=== PATIENT | female | born 1945 | race Hispanic/Latino ===

== ENCOUNTER 2016-12-21 02:34 | Emergency (ER) | payer MEDICARE, MEDICAID ==
[2016-12-21 02:34] VITALS: BMI 30.6
[2016-12-21 02:44] VITALS: RESP 18; TEMP 98
--- NOTE | 2016-12-21 02:52 | ED PDOC ---
Arrival/HPI - General Chief Complaint: Chest Pain Time Seen by Provider: 12/21/16 02:39 Historian: Patient - History of Present Illness Narrative History of Present Illness (Text): 12/21/16 02:51 Pratima Malik is a 71 year old female, whose past medical history includes hypertension, diabetes, and arthritis, who presents to the Emergency department complaining of chest pain. Patient states she has been experiencing left-sided chest pain for the past 2 hours. Patient denies any fever, chills, shortness of breath, nausea, vomiting, diarrhea, urinary symptoms, back pain, neck pain, headache, dizziness, or any other complaints. Time/Duration: 1-3 hours (2 hours) Symptom Onset: Gradual Symptom Course: Unchanged Activities at Onset: Rest, Light Context: Home Past Medical History - Provider Review Nursing Documentation Reviewed: Yes - Infectious Disease Hx of Infectious Diseases: None - Tetanus Immunization Tetanus Immunization: >10 years Ago - Reproductive Menopause: Yes - Cardiac Hx Hypertension: Yes - Pulmonary Hx Respiratory Disorders: No - Neurological Hx Neurological Disorder: No - HEENT Hx HEENT Disorder: No - Renal Hx Renal Disorder: No - Endocrine/Metabolic Hx Diabetes Mellitus Type 2: Yes - Hematological/Oncological Hx Blood Disorders: No - Integumentary Hx Dermatological Disorder: No - Musculoskeletal/Rheumatological Hx Arthritis: Yes - Gastrointestinal Hx Gastrointestinal Disorders: No - Genitourinary/Gynecological Hx Genitourinary Disorders: No - Psychiatric Hx Psychophysiologic Disorder: No Hx Substance Use: No - Surgical History Hx Hysterectomy: Yes Hx Tonsillectomy: Yes Family/Social History - Physician Review Nursing Documentation Reviewed: Yes Family/Social History: No Known Family HX Smoking Status: Never Smoked Hx Alcohol Use: No Hx Substance Use: No Allergies/Home Meds Allergies/Adverse Reactions: Allergies No Known Allergies Allergy (Verified 12/21/16 02:43) Home Medications: Home Meds Medication Instructions Recorded Confirmed Amlodipine Besylate/Benazepril 1 tab PO DAILY 12/21/16 12/21/16 [Amlodipine-Benazepril 10-20 mg] Glimepiride 1 mg PO BID 12/21/16 12/21/16 Metformin HCl [Glucophage] 850 mg PO BID 12/21/16 12/21/16 Quetiapine Fumarate [Seroquel] 100 mg PO HS 12/21/16 12/21/16 Thioridazine HCl 100 mg PO HS 12/21/16 12/21/16 Vit D2 50,000 units PO QWK 12/21/16 12/21/16 Review of Systems - Physician Review All systems were reviewed & negative as marked: Yes - Review of Systems Constitutional: Normal. absent: Fevers Eyes: Normal ENT: Normal Respiratory: Normal. absent: SOB, Cough Cardiovascular: Chest Pain Gastrointestinal: Normal. absent: Abdominal Pain, Diarrhea, Nausea, Vomiting Genitourinary Female: Normal. absent: Dysuria, Frequency, Hematuria, Urine Output Changes Musculoskeletal: Normal. absent: Back Pain, Neck Pain Skin: Normal. absent: Rash Neurological: Normal. absent: Headache, Dizziness Endocrine: Normal Hemo/Lymphatic: Normal Psychiatric: Normal Physical Exam Vital Signs Reviewed: Yes Vital Signs Temp Pulse Resp BP Pulse Ox 12/21/16 05:00 90 18 125/70 97 12/21/16 02:43 98.0 F 85 18 136/87 Temperature: Afebrile Blood Pressure: Normal Pulse: Regular Respiratory Rate: Normal Appearance: Positive for: Well-Appearing, Non-Toxic, Comfortable Pain Distress: None Mental Status: Positive for: Alert and Oriented X 3 - Systems Exam Head: Present: Atraumatic, Normocephalic Pupils: Present: PERRL Extroacular Muscles: Present: EOMI Conjunctiva: Present: Normal Mouth: Present: Moist Mucous Membranes Neck: Present: Normal Range of Motion Respiratory/Chest: Present: Clear to Auscultation, Good Air Exchange. No: Respiratory Distress, Accessory Muscle Use Cardiovascular: Present: Regular Rate and Rhythm, Normal S1, S2. No: Murmurs Abdomen: Present: Normal Bowel Sounds. No: Tenderness, Distention, Peritoneal Signs Back: Present: Normal Inspection Upper Extremity: Present: Normal Inspection. No: Cyanosis, Edema Lower Extremity: Present: Normal Inspection. No: Edema Neurological: Present: GCS=15, CN II-XII Intact, Speech Normal Skin: Present: Warm, Dry, Normal Color. 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 Plan: -- EKG -- Chest X-ray -- Labs, cardiac enzymes -- UA -- Reassess and disposition Prior Visits: Notes and results from previous visits were reviewed. Progress Notes: Reviewed EKG, NSR at [address] bpm[address] Non-specific ST/T wave changes. 12/21/16 03:33 Reviewed radiology, Chest X-ray shows no active disease. 12/21/16 04:[address] Cristina, who is aware and agrees with plan. Accepts pt in to her service. Pt will go to Telemetry observation for chest pain. 12/21/16 04:55 Discussed results and hospital observation plan with pt. Pt states she does not wish to stay in the hospital and would prefer to f/u outpt with her PMD. Pt was advised on the risks of leaving against medical advice including but not limited to underlying heart disease, organ failure, or . Pt states she will sign out against medical advice. Explained to the patient that choosing to do so may result in permanent bodily harm or . I have discussed at great length that without further evaluation and monitoring there may be unforeseen circumstances and/or deterioration causing permanent bodily harm or as a result of their choice. The patient is alert, oriented, and shows the mental capacity to make clear decisions regarding the patients health care at this time. The patient continues to wish to leave against medical advice. The patient has been advised that they should return to the emergency room immediately if they change their mind at any time, or if their condition begins to change or worsen in any way. - Lab Interpretations Lab Results: 12/21/16 02:58 12/21/16 02:58 Lab Results 12/21/16 02:58: Sodium 142, Potassium 3.9, Chloride 107, Carbon Dioxide 24, Anion Gap 15, BUN 18, Creatinine 0.7, Est GFR ( Amer) > 60, Est GFR (Non- Af Amer) > 60, Random Glucose 82, Calcium 9.5, Magnesium 1.5 L, Total Bilirubin 0.6, AST 13 L, ALT 26, Alkaline Phosphatase 70, Lactate Dehydrogenase 312 L, Total Creatine Kinase 45, Troponin I < 0.01, Total Protein 7.3, Albumin 4.1, Globulin 3.2, Albumin/Globulin Ratio 1.3 12/21/16 02:58: WBC 5.6, RBC 4.18, Hgb 12.0, Hct 35.4 L, MCV 84.7, MCH 28.7, MCHC 33.9, RDW 13.7, Plt Count 292, MPV 9.1, Gran % 48.4 L, Lymph % (Auto) 41.8 H, [place] % (Auto) 7.1 H, Eos % (Auto) 2.5, Baso % (Auto) 0.2, Gran # 2.71, Lymph # 2.3, [place] # 0.4, Eos # 0.1, Baso # 0.01 - RAD Interpretation Radiology Orders: 12/21/16 02:51 CHEST PORTABLE [RAD] Stat - Medication Orders Current Medication Orders: Discontinued Medications Acetaminophen (Tylenol 325mg Tab) 650 mg PO Q4H PRN PRN Reason: Pain, Mild (1-3) Aspirin (Ecotrin) 325 mg PO STAT STA Stop: 12/21/16 03:02 Last Admin: 12/21/16 03:15 Dose: 325 mg Insulin Human Regular (Humulin R Low) 0 units SC ACHS KAYLIN PRN Reason: Protocol Magnesium Oxide (Mag-Ox) 400 mg PO STAT STA Stop: 12/21/16 03:54 Last Admin: 12/21/16 04:41 Dose: 400 mg Nitroglycerin (Nitro-Bid 2% Oint) 1 ea TOP ONCE STA Stop: 12/21/16 03:02 Last Admin: 12/21/16 03:15 Dose: 1 ea - Scribe Statement The provider has reviewed the documentation as recorded by the Regina Quiroz Provider Attestation: All medical record entries made by the Scribe were at my direction and personally dictated by me. I have reviewed the chart and agree that the record accurately reflects my personal performance of the history, physical exam, medical decision making, and the department course for this patient. I have also personally directed, reviewed, and agree with the discharge instructions and disposition. Disposition/Present on Arrival - Present on Arrival Any Indicators Present on Arrival: No History of DVT/PE: No History of Uncontrolled Diabetes: No Urinary Catheter: No History of Decub. Ulcer: No History Surgical Site Infection Following: None - Disposition Have Diagnosis and Disposition been Completed?: Yes Diagnosis: Chest pain Disposition: AGAINST MEDICAL ADVICE Disposition Time: 05:05 Condition: UNKNOWN Discharge Instructions (ExitCare): Chest Pain (ED)
[2016-12-21] MEDS ORDERED: Aspirin 325 mg EC Tablets PO STA (03:01)
[2016-12-21] MEDS ORDERED: Nitroglycerin 2% Ointment Foilpak UD TOP STA (03:01)
[2016-12-21 03:05] LABS: ADD MANUAL DIFF? NO
[2016-12-21 03:11] LABS: BASO # 0.01 K/mm3 (0.0-2.0); BASO % 0.2 % (0.0-3.0); EOS # 0.1 (0.0-0.7); EOS % 2.5 % (1.5-5.0); GRAN # 2.71 (1.4-6.5); GRAN % 48.4 % (50.0-68.0); HEMATOCRIT 35.4 % (36.0-48.0); LYMPH # 2.3 (1.2-3.4); LYMPH % 41.8 % (22.0-35.0); MEAN CELL VOLUME 84.7 fL (80.0-105.0); MEAN CORPUSCULAR HEMOGLOBIN 28.7 pg (25.0-35.0); MEAN CORPUSCULAR HGB CONC 33.9 g/dl (31.0-37.0); MEAN PLATELET VOLUME 9.1 fl (7.0-11.0); MONO # 0.4 (0.1-0.6); MONO % 7.1 % (1.0-6.0); PLATELET COUNT 292 10^3/uL (120.0-450.0); RED CELL DISTRIBUTION WIDTH 13.7 % (11.5-14.5); WHITE BLOOD COUNT 5.6 10^3/ul (4.5-11.0)
[2016-12-21 03:18] LABS: ALB/GLOB RATIO 1.3 (1.1-1.8); ALKALINE PHOSPHATASE 70 U/L (38-133); ALT/SGPT 26 U/L (7-56); AST/SGOT 13 U/L (15-39); BILIRUBIN,TOTAL 0.6 mg/dL (0.2-1.3); BLOOD UREA NITROGEN 18 mg/dL (7-21); CALCIUM 9.5 mg/dL (8.4-10.5); CARBON DIOXIDE 24 mmol/L (21-33); CHLORIDE 107 mmol/L (98-107); GFR AFRICAN-AMERICAN > 60; GLUCOSE,RANDOM 82 mg/dL (70-110); MAGNESIUM 1.5 mg/dL (1.7-2.2); POTASSIUM 3.9 mmol/L (3.6-5.0); SODIUM 142 mmol/L (132-148); TOTAL PROTEIN 7.3 g/dL (5.8-8.3)
[2016-12-21 03:31] LABS: TROPONIN I < 0.01 ng/mL
[2016-12-21] MEDS ORDERED: Magnesium Oxide 400 mg Tab UD PO STA (03:53)
[2016-12-21 05:12] VITALS: BP 125/70; PULSE 90; O2SAT 97
[2016-12-21] MEDS ORDERED: Insulin Reg-LOW-Coverage SC SCH (07:30)
--- NOTE | 2016-12-21 08:44 | RAD ---
HISTORY: cp COMPARISON: No prior. FINDINGS: LUNGS: No active pulmonary disease. PLEURA: No significant pleural effusion identified, no pneumothorax apparent. CARDIOVASCULAR: Mild cardiomegaly OSSEOUS STRUCTURES: No significant abnormalities. VISUALIZED UPPER ABDOMEN: Normal. OTHER FINDINGS: None. IMPRESSION: No active disease.
--- NOTE | 2016-12-21 10:20 | CARD ---
APPROVED REPORT EKG Measurement Heart [id number] <Conclusion> Normal sinus rhythm Q3, Small Q in AVF. Poor R Progression V1-V4.
== END 2016-12-21 05:00 | disposition left against medical advice (07) ==
LOC: ED 02:34 → ERH 04:12 → UNDOADMOB 04:12
DX: R07.9 Chest pain, unspecified (principal); E11.9 Type 2 diabetes mellitus without complications; M19.90 Unspecified osteoarthritis, unspecified site; I10 Essential (primary) hypertension

== ENCOUNTER 2017-02-01 12:07 | Inpatient (IN) | payer MEDICARE, MEDICAID ==
[2017-02-01 12:48] VITALS: O2SAT 95; BMI 30.9
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
--- NOTE | 2017-02-01 14:11 | RAD ---
HISTORY: PES evaluation COMPARISON: 12/21/2016 FINDINGS: LUNGS: No active pulmonary disease. PLEURA: No significant pleural effusion identified, no pneumothorax apparent. CARDIOVASCULAR: Normal. OSSEOUS STRUCTURES: No significant abnormalities. VISUALIZED UPPER ABDOMEN: Normal. OTHER FINDINGS: None. IMPRESSION: No active disease.
[2017-02-01 14:51] LABS: ADD MANUAL DIFF? NO
[2017-02-01 15:04] LABS: BASO # 0.02 K/mm3 (0.0-2.0); BASO % 0.3 % (0.0-3.0); EOS # 0.1 (0.0-0.7); GRAN # 5.25 (1.4-6.5); GRAN % 73.1 % (50.0-68.0); HEMATOCRIT 38.8 % (36.0-48.0); LYMPH # 1.4 (1.2-3.4); LYMPH % 19.9 % (22.0-35.0); MEAN CORPUSCULAR HEMOGLOBIN 28.6 pg (25.0-35.0); MEAN CORPUSCULAR HGB CONC 32.5 g/dl (31.0-37.0); MEAN PLATELET VOLUME 9.7 fl (7.0-11.0); MONO # 0.4 (0.1-0.6); MONO % 5.7 % (1.0-6.0); PLATELET COUNT 331 10^3/uL (120.0-450.0); RED CELL DISTRIBUTION WIDTH 14.2 % (11.5-14.5); WHITE BLOOD COUNT 7.2 10^3/ul (4.5-11.0)
[2017-02-01 15:16] LABS: ALB/GLOB RATIO 1.5 (1.1-1.8); ALKALINE PHOSPHATASE 66 U/L (38-133); ALT/SGPT 23 U/L (7-56); AST/SGOT 18 U/L (15-39); BILIRUBIN,TOTAL 0.4 mg/dL (0.2-1.3); BLOOD UREA NITROGEN 17 mg/dL (7-21); CALCIUM 9.6 mg/dL (8.4-10.5); CARBON DIOXIDE 24 mmol/L (21-33); CHLORIDE 106 mmol/L (98-107); GFR AFRICAN-AMERICAN > 60; GLUCOSE,RANDOM 160 mg/dL (70-110); SODIUM 143 mmol/L (132-148); TOTAL PROTEIN 6.8 g/dL (5.8-8.3)
[2017-02-01 16:36] LABS: PH,URINE 5.5 (4.7-8.0); URINE BILIRUBIN NEGATIVE (NEGATIVE); URINE BLOOD SMALL (NEGATIVE); URINE GLUCOSE (UA) NEGATIVE (NEGATIVE); URINE KETONE TRACE mg/dL (NEGATIVE); URINE LEUKOCYTE ESTERASE SMALL Leu/uL (NEGATIVE); URINE PROTEIN NEGATIVE mg/dL (<30 mg/dL); URINE UROBILINOGEN 0.2 E.U./dL (<1 E.U./dL)
[2017-02-01 16:37] LABS: URINE APPEARANCE SL CLOUDY (CLEAR); URINE COLOR YELLOW (YELLOW)
[2017-02-01 16:54] LABS: URINE BACTERIA FEW (NEG); URINE EPITHELIAL CELLS MANY /hpf (0-5)
--- NOTE | 2017-02-02 10:21 | CARD ---
APPROVED REPORT EKG Measurement Heart [id number] <Conclusion> Normal sinus rhythm Low voltage QRS Possible Inferior infarct, old NSSTW changes Mildly prolonged QTc
--- NOTE | 2017-02-02 14:12 | PCM.PSYCH ---
Initial Psychiatric Evaluation - Initial Psychiatric Evaluation Type of Admission: Voluntary Legal Status: Capacity (patient has capacity to sign consent for treatment) Chief Complaint (in patient's own words): "If I will sign treatment plan, I will sign my life away, you will keep me here forever" "one of the nurses laughed at my face said that I will here, but I want to have long life" (pt is paranoid, nobody was laughing at pt's face). Patient's Reaction to Hospitalization: pt was admitted for worsening of psychosis, depressive symptoms, possible suicidal ideation, pt was feeling like she is a burden for her family. History of Present Illness and Precipitating Events: shortly pt has long h/o schizoaffective disorder, bipolar type, h/o multiple psych admissions, under HILLARY Esquivel at [facility], pt was noncompliant with meds for the past three weeks, decompensated, became paranoid, was not sleeping, had depressive symptoms, not able to function, was keep calling multiple times during the night time to her kids, pt had feeling that she is a burden for her family, wanted to . pt needs further evaluation and stabilization, meds resumption and titration. Meds confirmed by pharmacy [phone] thorazone 100mg po hs seorquel po hs metformin 850 po bid Amlodipine/benazepril 10-20 daily pt was seen at the tx team meeting, presented to be disorganized, paranoid, pressured/monotonic speech, pt said that "my family wants to lock me here, nobody wants me", pt initially refused to sign treatment plan "If I will sign treatment plan, I will sign my life away, you will keep me here forever"/ "one of the nurses laughed at my face said that I will here, but I want to have long life" (pt is paranoid, nobody was laughing at pt's face). pt was intrusive , was keep coming back to the tx team room, with the same statements "promise you will not keep me here forever". pt was provided with emotional support and empathic listening. pt was also crying, said that she feels like a "burden for my family, they do not want to be bothered", pt had passive wish to be as per PES "I wish I was , my famiy would be better off without me". pt denied feeling anxious denied hallucinations, but obviously thought process disorganized, pt is paranoid. pt denied using drugs and alcohol, denied smoking. past psych h/o: collaterals were obtained by medical residents: long h/o mental illness as per daughter Dasha [phone] h/o multiple psych admissions, most recent was 30 years ago, depression/psychosis, no suicidal attempts. medical h/o: HTN, dyslipidemia, arthritis, saw pt 02/01/17 14:35 02/01/17 14:35 Lab Results 02/02/17 11:54: POC Glucose (mg/dL) 270 H 02/01/17 16:10: Urine Opiates Screen Negative, Urine Methadone Screen Negative, Ur Barbiturates Screen Negative, Ur Phencyclidine Scrn Negative, Ur Amphetamines Screen Negative, U Benzodiazepines Scrn Negative, U Oth Cocaine Metabols Negative, U Cannabinoids Screen Negative 02/01/17 16:10: Urine Color Yellow, Urine Appearance Sl cloudy, Urine pH 5.5, Ur Specific [place] >= 1.030, Urine Protein Negative, Urine Glucose (UA) Negative, Urine Ketones Trace H, Urine Blood Small H, Urine Nitrate Negative, Urine Bilirubin Negative, Urine Urobilinogen 0.2, Ur Leukocyte Esterase Small H , Urine RBC 2 - 5, Urine WBC 2 - 5, Ur Epithelial Cells Many, Urine Bacteria Few 02/01/17 14:35: Alcohol, Quantitative < 10 02/01/17 14:35: Salicylates < 1 L, Acetaminophen < 10.0 L 02/01/17 14:35: Sodium 143, Potassium 4.0, Chloride 106, Carbon Dioxide 24, Anion Gap 17, BUN 17, Creatinine 0.9, Est GFR ( Amer) > 60, Est GFR (Non- Af Amer) > 60, Random Glucose 160 H, Calcium 9.6, Total Bilirubin 0.4, AST 18, ALT 23, Alkaline Phosphatase 66, Total Protein 6.8, Albumin 4.1, Globulin 2.7, Albumin/Globulin Ratio 1.5 02/01/17 14:35: WBC 7.2 D, RBC 4.41, Hgb 12.6, Hct 38.8, MCV 88.0, MCH 28.6, MCHC 32.5, RDW 14.2, Plt Count 331, MPV 9.7, Gran % 73.1 H, Lymph % (Auto) 19.9 L, Power % (Auto) 5.7, Eos % (Auto) 1.0 L, Baso % (Auto) 0.3, Gran # 5.25, Lymph # 1.4, Power # 0.4, Eos # 0.1, Baso # 0.02 Vital Signs Temp Pulse Resp BP Pulse Ox 02/02/17 07:38 97.5 F L 78 20 139/66 02/01/17 17:00 98 H 18 128/70 95 02/01/17 14:10 76 18 119/76 99 02/01/17 12:42 97.6 F 85 18 113/70 95 Current Medications: Active Medications Generic Name Dose Route Start Last Admin Trade Name Freq PRN Reason Stop Dose Admin Quetiapine Fumarate 100 mg 02/01/17 22:15 02/01/17 22:20 Seroquel PO 100 mg HS [facility] Administration Protocol Past Psychiatric History - Past Psychiatric History Previous Treatment History: Inpatient Prior Professional Help: see HPI Prior Psychiatric Treatment: see HPI At what hospital: see HPI Duration: see HPI Nature of Treatment: see HPI Explanation of prior treatment: see HPI History of Abuse: see HPI History of ETOH/Drug Use: see HPI History of Family Illness: see HPI son has schizophrenia Pertinent Medical Hx (Current Medical&Sleep Prob, Allergies): Allergies Allergy/AdvReac Type Severity Reaction Status Date / Time No Known Allergies Allergy Verified 02/02/17 04:47 Amlodipine Besylate/Benazepril [Amlodipine-Benazepril 10-20 mg] 1 tab PO DAILY 12/21/16 Glimepiride 1 mg PO BID 12/21/16 Metformin HCl [Glucophage] 850 mg PO BID 12/21/16 Quetiapine Fumarate [Seroquel] 100 mg PO HS 12/21/16 Thioridazine HCl 100 mg PO HS 12/21/16 Vit D2 50,000 units PO QWK 12/21/16 Review of Systems - Review of Systems Systems not reviewed;Unavailable: Acuity of Condition - EENT Eyes: As Per HPI Ears: As Per HPI Nose/Mouth/Throat: As Per HPI - Breasts Breasts: As Per HPI - Cardiovascular Cardiovascular: As Per HPI - Respiratory Respiratory: As Per HPI - Gastrointestinal Gastrointestinal: As Per HPI - Genitourinary Genitourinary: As Per HPI - Reproductive: Female Reproductive:Female: As Per HPI - Menstruation Menstruation: As Per HPI - Musculoskeletal Musculoskeletal: As Par HPI - Integumentary Integumentary: As Per HPI - Neurological Neurological: As Per HPI - Psychiatric Psychiatric: As Per HPI - Endocrine Endocrine: As Per HPI Mental Status Examination - Personal Presentation Personal Presentation: Looks stated age - Affect Affect: Constricted (and tearful) - Motor Activity Motor Activity: Calm - Reliability in Providing Information Reliability in Providing Information: Poor, due to alteration in thoughts - Speech Speech: Disorganized, Tangential - Mood Mood: Depressed, Anxious - Formal Thought Process Formal Thought Process: Delusions, Paranoia, Loosening of associations - Hallucinations/Delusions Delusions: Persecution - Obsessions/Compulsions Obsessions: None Compulsions: None - Cognitive Functions Orientation: Person, Place, Situation, Time Sensorium: Alert Attention/Concentration: Easily distracted Abstract Thinking: [place] Estimate of Intelligence: Average Judgement: Intact, as evidence by: Insight regarding need for hospitalization - Risk Risk: Suicidal, Self-mutilation, Diminished functioning - Strength & Assets Inventory Strength & Assets Inventory: Family support, Spiritual affiliations, Life experience, Cooperative - Limitations Limitations: Other (chronic mental illness, noncompliance withmeds) DSM 5 DX - DSM 5 DSM 5 Diagnosis: schizoaffective disorder, bipolar type, currently depressed - Recommended/Plan of Treatment Treatment Recommendations and Plan of Treatment: milieu/structure/supportive therapy Amlodipine Besylate/Benazepril [Amlodipine-Benazepril 10-20 mg] 1 tab PO DAILY will be resumed by medical team Glimepiride 1 mg PO BID will be resumed by medical team Metformin HCl [Glucophage] 850 mg PO BID will be resumed by medical team Quetiapine Fumarate [Seroquel] will be increased to 150mg po hs for psychosis and mood stabilization Thioridazine will be d/c Vit D2 50,000 units PO QWK will be resumed by medical team SW evaluation PRN meds will monitor closely collaterals from daughter appreciated. Projected ELOS: 7days Prognosis: fair Discharge Plan and Discharge Criteria: Pt will be not depressed or manic, will be more hopeful, will be not psychotic or anxious, will be not having thoughts of harming self or others, will be tolerating medications well, will not have major side effects, will be able to function, will not pose threat to self or others. - Smoking Cessation Smoking Cessation Initiated: No Reason for not providing: pt does not smoke
[2017-02-02] MEDS ORDERED: GLIMEPIRIDE 1 MG PO SCH (18:45)
--- NOTE | 2017-02-02 21:08 | CON ---
DATE: 02/02/2017 HISTORY OF PRESENT ILLNESS: The patient is 71 years old, known to me from office practice, was broug ht in by daughter, who lives upstairs. States that she has not been feeling well. She has been depr essed. She does not move around much. She is not taking her medication regularly. She states that she does not want to , according to daughter, and she has been feeling down for almost a month, but got more depressed in the last 2 weeks. PAST MEDICAL HISTORY: 1. Bipolar disorder. 2. Non-insulin dependent diabetes. 3. Hypertension. 4. Hyperlipidemia. ALLERGIES: She is not allergic to any medications. MEDICATIONS AT HOME: She is on 100 mg at bedtime, Seroquel 100 mg at bedtime, metformin 850 tw ice a day, glimepiride 1 mg twice a day, amlodipine 10 mg daily, benazepril 20 mg daily. SOCIAL HISTORY: She is single, lives in a two-family house. Her daughter lives upstairs and she timothy es downstairs. REVIEW OF SYSTEMS: Significant for feeling depressed and down. PHYSICAL EXAMINATION: GENERAL: She is awake and alert, communicative. VITAL SIGNS: She is afebrile, pulse 70, respirations 20, blood pressure 139/66. LUNGS: Bilateral fair airflow, no rhonchi or crackle. HEART: S1, S2 audible. ABDOMEN: Soft, nontender, no rebound, no guarding. NEUROLOGIC: She is awake and alert, able to communicate. LABORATORY DATA: WBC 7.2, hemoglobin 12.6, hematocrit 38, platelet 331. Chemistry: Sodium 143, pot assium 4.0, chloride 106, CO2 24, BUN 17, creatinine 0.9, blood sugar 168. Urine tox is negative. X -ray chest is negative. EKG shows normal sinus rhythm, old inferior infarct. ASSESSMENT: 1. Major depression. 2. Non-insulin dependent diabetes. 3. Hypertension. 4. Hyperlipidemia. 5. Chronic degenerative disk disease. 6. History of bipolar disorder. PLAN: We will monitor her blood sugar. We will restart her diabetes and her blood pressure medicati on. Psych medication will be adjusted by Dr. Jimenez and will reevaluate the patient in a.m. Harry Cristina MD cc: [phone] TT: 02/02/2017 21:07:11 Confirmation # [id number] Dictation # [id number] ln
--- NOTE | 2017-02-03 10:53 | CP.PCM.PN ---
<Reagan Damon - Last Filed: 02/03/17 11:20> Subjective - Date & Time of Evaluation Date of Evaluation: 02/03/17 Time of Evaluation: 07:35 - Subjective Subjective: Code Star progress note for Dr. Escalante - Reagan Damon PGY 1 Code star called by psychiatry unit at 7:30am for 517-02. Responded to code star and found Ms. Malik sitting in a chair comfortably in the activity room. She was awake, alert and oriented in no visible distress. Per staff, they had found her laying on the floor. The patient reported carrying a cup of water when she slipped and fell on her knees onto the floor. She denied loss of consciousness, hitting her head, chest pain, palpitations, SOB, abdominal pain, nausea, vomiting. She had a visible minor abrasion to her left knee that appeared old and healing. Range of motion of her left knee was within normal limits. Gait was normal. No visible head injury on examination. Vitals were as follows: Heart rate 101, blood pressure 169/99, fingerstick 112, respiratory rate 18. The patient answered questions appropriately. Discussed with staff to maintain close monitoring of patient post fall. Vitals at 7:42am reviewed and were as follows: temperature 97.9F, heart rate 81bpm, blood pressure 142/76, respiratory rate 20. Objective - Vital Signs/Intake and Output Vital Signs (last 24 hours): Temp Pulse Resp BP Pulse Ox 97.9 F 81 20 142/76 95 02/03/17 07:41 02/03/17 07:41 02/03/17 07:41 02/03/17 07:41 02/01/17 17:00 - Medications Medications: Current Medications Citalopram Hydrobromide (Celexa) 10 mg PO DAILY REPLACED BY [facility] Last Admin: 02/03/17 08:57 Dose: 10 mg Glimepiride (Amaryl) 1 mg PO BID REPLACED BY [facility] Last Admin: 02/03/17 08:57 Dose: 1 mg Lorazepam (Ativan) 0.5 mg PO TID PRN; Protocol PRN Reason: agitation/anxiety Last Admin: 02/02/17 21:26 Dose: 0.5 mg Losartan Potassium (Cozaar) 100 mg PO DAILY REPLACED BY [facility] Last Admin: 02/03/17 08:58 Dose: 100 mg Metformin HCl (Glucophage) 850 mg PO BID [facility]AYLIN Last Admin: 02/03/17 08:58 Dose: 850 mg Quetiapine Fumarate (Seroquel) 150 mg PO HS KAYLIN PRN Reason: Protocol Last Admin: 02/02/17 21:26 Dose: 150 mg Zaleplon (Sonata) 5 mg PO HS PRN PRN Reason: Insomnia Last Admin: 02/02/17 21:26 Dose: 5 mg Ziprasidone (Geodon Inj) 10 mg IM Q8H PRN; Protocol PRN Reason: severe agitation - Constitutional Appears: Well, Non-toxic, No Acute Distress - Head Exam Head Exam: ATRAUMATIC, NORMAL INSPECTION, NORMOCEPHALIC - Eye Exam Eye Exam: EOMI, PERRL - ENT Exam ENT Exam: Mucous Membranes Moist - Neck Exam Neck Exam: Normal Inspection - Respiratory Exam Respiratory Exam: Clear to Ausculation Bilateral. absent: Rales, Rhonchi, Wheezes - Cardiovascular Exam Cardiovascular Exam: RRR, +S1, +S2. absent: Gallop, Rubs - GI/Abdominal Exam GI & Abdominal Exam: Soft. absent: Distended, Firm, Guarding, Rigid, Tenderness , Rebound - Neurological Exam Neurological Exam: Alert, Awake, CN II-XII Intact, Normal Gait, Oriented x3 Neuro motor strength exam: Left Upper Extremity: 5, Right Upper Extremity: 5, Left Lower Extremity: 5, Right Lower Extremity: 5 - Skin Skin Exam: Dry, Intact, Normal Color, Warm Assessment and Plan - Assessment and Plan (Free Text) Plan: 71yo female admitted to psychiatry unit s/p mechanical fall for which code star was called -Alert and oriented in no acute distress -Minor abrasion visible to left knee -No focal motor deficits apparent; gait within normal limits -Continue close observation of patient post fall -Vitals q4h -PMD notified of fall Case discussed with attending physician, Dr. Escalante <Amirah Escalante - Last Filed: 02/03/17 13:18> Objective - Vital Signs/Intake and Output Vital Signs (last 24 hours): Temp Pulse Resp BP Pulse Ox 97.9 F 81 20 142/76 95 02/03/17 07:41 02/03/17 07:41 02/03/17 07:41 02/03/17 07:41 02/01/17 17:00 - Medications Medications: Current Medications Citalopram Hydrobromide (Celexa) 10 mg PO DAILY REPLACED BY [facility] Last Admin: 02/03/17 08:57 Dose: 10 mg Glimepiride (Amaryl) 1 mg PO BID REPLACED BY [facility] Last Admin: 02/03/17 08:57 Dose: 1 mg Lorazepam (Ativan) 0.5 mg PO TID PRN; Protocol PRN Reason: agitation/anxiety Last Admin: 02/02/17 21:26 Dose: 0.5 mg Losartan Potassium (Cozaar) 100 mg PO DAILY REPLACED BY [facility] Last Admin: 02/03/17 08:58 Dose: 100 mg Metformin HCl (Glucophage) 850 mg PO BID REPLACED BY [facility] Last Admin: 02/03/17 08:58 Dose: 850 mg Quetiapine Fumarate (Seroquel) 150 mg PO HS [facility]AYLIN PRN Reason: Protocol Last Admin: 02/02/17 21:26 Dose: 150 mg Zaleplon (Sonata) 5 mg PO HS PRN PRN Reason: Insomnia Last Admin: 02/02/17 21:26 Dose: 5 mg Ziprasidone (Geodon Inj) 10 mg IM Q8H PRN; Protocol PRN Reason: severe agitation Attending/Attestation - Attestation I have personally seen and examined this patient.: Yes I have fully participated in the care of the patient.: Yes I have reviewed all pertinent clinical information, including history, physical exam and plan: Yes Notes (Text): 02/03/17 13:15 Pt has no clinical evidence of any injury due to the fall today.
--- NOTE | 2017-02-03 12:28 | PN ---
DATE: 02/03/2017 SUBJECTIVE: The patient is a 71-year-old, seen and examined. She states she was given a lot of medi cation last night. When she woke up this morning, she felt dizzy. She lost balance, she fell, but d id not hit her head. She states she feels fine; however, she does feel better. PHYSICAL EXAMINATION: VITAL SIGNS: She is afebrile, pulse 80, respirations 20, blood pressure 142/76. LUNGS: Bilateral fair airflow, no rhonchi or crackle. HEART: S1, S2 audible. ABDOMEN: Soft, nontender, no rebound, no guarding. NEUROLOGIC: She is awake and alert, communicative, ambulatory. ASSESSMENT: 1. Schizoaffective disorder. 2. Depression. 3. Hypertension. 4. Non-insulin dependent diabetes. 5. Chronic degenerative disk disease. 6. Hyperlipidemia. PLAN: We will continue to monitor patient's blood sugar and blood pressure. She has been started on Celexa. She is on Cozaar. Will continue her on metformin and monitor her blood sugar. Will follow up with you. Thanks for the consult. Discharge plan soon. Harry Cristina MD cc: [phone] TT: 02/03/2017 12:27:14 Confirmation # [id number] Dictation # [id number] william
--- NOTE | 2017-02-03 13:46 | PCM.PYCHPN ---
Psychiatric Progress Note - Psychiatric Progress Note Patient seen today, length of contact: 30 minutes Patient Chief Complaint: "I feel better, my family visited me here, they told me after I'll get better then we'll take me back" Problems Identified/Issues Discussed: Suicide/ homicide prevention, past psychiatric h/o, current psychiatric symptoms , medical problems, risk/benefits and alternatives of medications, medications compliance, coping strategies, substance abuse h/o, relapse prevention, importance of follow up with psychiatrist and therapist, discharge plan. Medical Problems: hypertension, dyslipidemia, arthritis Diagnostic Results: 02/01/17 14:35 02/01/17 14:35 Lab Results 02/03/17 12:04: POC Glucose (mg/dL) 120 H 02/03/17 07:53: POC Glucose (mg/dL) 112 H 02/02/17 21:05: POC Glucose (mg/dL) 244 H 02/02/17 15:56: POC Glucose (mg/dL) 168 H 02/02/17 11:54: POC Glucose (mg/dL) 270 H 02/01/17 16:10: Urine Opiates Screen Negative, Urine Methadone Screen Negative, Ur Barbiturates Screen Negative, Ur Phencyclidine Scrn Negative, Ur Amphetamines Screen Negative, U Benzodiazepines Scrn Negative, U Oth Cocaine Metabols Negative, U Cannabinoids Screen Negative 02/01/17 16:10: Urine Color Yellow, Urine Appearance Sl cloudy, Urine pH 5.5, Ur Specific [place] >= 1.030, Urine Protein Negative, Urine Glucose (UA) Negative, Urine Ketones Trace H, Urine Blood Small H, Urine Nitrate Negative, Urine Bilirubin Negative, Urine Urobilinogen 0.2, Ur Leukocyte Esterase Small H , Urine RBC 2 - 5, Urine WBC 2 - 5, Ur Epithelial Cells Many, Urine Bacteria Few 02/01/17 14:35: Alcohol, Quantitative < 10 02/01/17 14:35: Salicylates < 1 L, Acetaminophen < 10.0 L 02/01/17 14:35: Sodium 143, Potassium 4.0, Chloride 106, Carbon Dioxide 24, Anion Gap 17, BUN 17, Creatinine 0.9, Est GFR ( Amer) > 60, Est GFR (Non- Af Amer) > 60, Random Glucose 160 H, Calcium 9.6, Total Bilirubin 0.4, AST 18, ALT 23, Alkaline Phosphatase 66, Total Protein 6.8, Albumin 4.1, Globulin 2.7, Albumin/Globulin Ratio 1.5 02/01/17 14:35: WBC 7.2 D, RBC 4.41, Hgb 12.6, Hct 38.8, MCV 88.0, MCH 28.6, MCHC 32.5, RDW 14.2, Plt Count 331, MPV 9.7, Gran % 73.1 H, Lymph % (Auto) 19.9 L, [place] % (Auto) 5.7, Eos % (Auto) 1.0 L, Baso % (Auto) 0.3, Gran # 5.25, Lymph # 1.4, [place] # 0.4, Eos # 0.1, Baso # 0.02 Vital Signs Temp Pulse Resp BP Pulse Ox 02/03/17 07:41 97.9 F 81 20 142/76 02/02/17 16:24 72 161/82 H 02/02/17 07:38 97.5 F L 78 20 139/66 02/01/17 17:00 98 H 18 128/70 95 02/01/17 14:10 76 18 119/76 99 02/01/17 12:42 97.6 F 85 18 113/70 95 DSM 5 Symptoms Update: shortly pt has long h/o schizoaffective disorder, bipolar type, h/o multiple psych admissions, under HILLARY Esquivel at [facility], pt was noncompliant with meds for the past three weeks, decompensated, became paranoid, was not sleeping, had depressive symptoms, not able to function, was keep calling multiple times during the night time to her kids, pt had feeling that she is a burden for her family, wanted to . patient was seen today for follow-up, as per nursing report patient was found to be in kneeling position on the floor early at the morning time, patient seems to slip and fall because she spilled some water on the floor. Dr. Nugent a house physician saw this patient, this service writer discussed this with primary care physician today. as per patient she woke up and did not adjusted to the seating position and went to the bathroom very quickly, patient said "I know after waking up at the morning I need to sit for couple of minutes and then move but I didn't do so" patient was educated about the risk of falls, patient was educated deceitful couple of minutes after waking up and if she needs to have assistance Qual nursing staff patient verbalized understanding. meds adjusted, now pt is on fall precaution, nonslippery socks provided. patient has some positive changes with her presentation, took a shower, less intrusive, more pleasant, emotionally more stable, patient still has paranoid ideations, depression, needs further evaluation and stabilization. patient said that her family is willing to take her back after medical and psychiatric stabilization, pt less paranoid towards them. as per nursing report patient is more pleasant, has fair appetite, adjusting to the unit as well, no agitation, no aggression. Patient tolerates medications well, no side effects observed or reported. Impression: schizoaffective disorder disorder, bipolar type, most recent episode depression Medication Change: No (resumed yesterday) Medical Record Reviewed: Yes Consults ordered or reviewed: Dr. Wilder consult appreciated Patient status post fall was seen by house physician Mental Status Examination - Cognitive Function Orientation: Person, Place, Situation, Time Memory: Intact Attention: Poor Concentration: Poor Association: Loose Fund of Knowledge: Poor - Mood Mood: Depressed, Anxious - Affect Affect: Constricted (and tearful) - Formal Thought Process Formal Thought Process: Delusions (some improvement), Paranoia (some improvement ), Loosening of associations - Suicidal Ideation Suicidal Ideation: No - Homicidal Ideation Homicidal Ideation: No Goal/Treatment Plan - Goal/Treatment Plan Need for Continued Stay: Remain at risks for inpatient hospitalization, Severe depression anxiety, Discharge may exacerbated symptoms, Severe functional impairment Progress Toward Problem(s) and Goals/Treatment Plan: milieu/structure/supportive therapy Amlodipine Besylate/Benazepril [Amlodipine-Benazepril 10-20 mg] 1 tab PO DAILY will be resumed by medical team Glimepiride 1 mg PO BID will be resumed by medical team Metformin HCl [Glucophage] 850 mg PO BID will be resumed by medical team Quetiapine Fumarate [Seroquel] 150mg po hs for psychosis and mood stabilization Thioridazine was discontinued Celexa 10 mg daily for depression and anxiety Vit D2 50,000 units PO QWK will be resumed by medical team SW evaluation PRN meds will monitor closely collaterals from daughter appreciated. Estimated Date of D/C: 02/09/17 (we'll monitor closely) - Smoking Cessation Smoking Cessation Initiated: No Reason for not providing: patient doesn't smoke
--- NOTE | 2017-02-04 12:48 | PCM.PYCHPN ---
Psychiatric Progress Note - Psychiatric Progress Note Patient seen today, length of contact: 30 minutes Patient Chief Complaint: "promise that he will not keep me here forever" Problems Identified/Issues Discussed: Suicide/ homicide prevention, past psychiatric h/o, current psychiatric symptoms , medical problems, risk/benefits and alternatives of medications, medications compliance, coping strategies, substance abuse h/o, relapse prevention, importance of follow up with psychiatrist and therapist, discharge plan. Medical Problems: hypertension, dyslipidemia, arthritis Diagnostic Results: 02/01/17 14:35 02/01/17 14:35 Lab Results 02/03/17 12:04: POC Glucose (mg/dL) 120 H 02/03/17 07:53: POC Glucose (mg/dL) 112 H 02/02/17 21:05: POC Glucose (mg/dL) 244 H 02/02/17 15:56: POC Glucose (mg/dL) 168 H 02/02/17 11:54: POC Glucose (mg/dL) 270 H 02/01/17 16:10: Urine Opiates Screen Negative, Urine Methadone Screen Negative, Ur Barbiturates Screen Negative, Ur Phencyclidine Scrn Negative, Ur Amphetamines Screen Negative, U Benzodiazepines Scrn Negative, U Oth Cocaine Metabols Negative, U Cannabinoids Screen Negative 02/01/17 16:10: Urine Color Yellow, Urine Appearance Sl cloudy, Urine pH 5.5, Ur Specific [place] >= 1.030, Urine Protein Negative, Urine Glucose (UA) Negative, Urine Ketones Trace H, Urine Blood Small H, Urine Nitrate Negative, Urine Bilirubin Negative, Urine Urobilinogen 0.2, Ur Leukocyte Esterase Small H , Urine RBC 2 - 5, Urine WBC 2 - 5, Ur Epithelial Cells Many, Urine Bacteria Few 02/01/17 14:35: Alcohol, Quantitative < 10 02/01/17 14:35: Salicylates < 1 L, Acetaminophen < 10.0 L 02/01/17 14:35: Sodium 143, Potassium 4.0, Chloride 106, Carbon Dioxide 24, Anion Gap 17, BUN 17, Creatinine 0.9, Est GFR ( Amer) > 60, Est GFR (Non- Af Amer) > 60, Random Glucose 160 H, Calcium 9.6, Total Bilirubin 0.4, AST 18, ALT 23, Alkaline Phosphatase 66, Total Protein 6.8, Albumin 4.1, Globulin 2.7, Albumin/Globulin Ratio 1.5 02/01/17 14:35: WBC 7.2 D, RBC 4.41, Hgb 12.6, Hct 38.8, MCV 88.0, MCH 28.6, MCHC 32.5, RDW 14.2, Plt Count 331, MPV 9.7, Gran % 73.1 H, Lymph % (Auto) 19.9 L, [place] % (Auto) 5.7, Eos % (Auto) 1.0 L, Baso % (Auto) 0.3, Gran # 5.25, Lymph # 1.4, [place] # 0.4, Eos # 0.1, Baso # 0.02 Vital Signs Temp Pulse Resp BP Pulse Ox 02/03/17 07:41 97.9 F 81 20 142/76 02/02/17 16:24 72 161/82 H 02/02/17 07:38 97.5 F L 78 20 139/66 02/01/17 17:00 98 H 18 128/70 95 02/01/17 14:10 76 18 119/76 99 02/01/17 12:42 97.6 F 85 18 113/70 95 Temp Pulse Resp BP Pulse Ox 97.6 F 83 17 152/86 H 95 02/04/17 06:37 02/04/17 06:37 02/04/17 06:37 02/04/17 06:37 02/01/17 17:00 Abnormal Lab Results 02/03/17 02/03/17 02/04/17 16:24 21:49 07:22 POC Glucose (mg/dL) 212 H 166 H 108 02/04/17 11:30 POC Glucose (mg/dL) 209 H DSM 5 Symptoms Update: shortly pt has long h/o schizoaffective disorder, bipolar type, h/o multiple psych admissions, under HILLARY Esquivel at [facility], pt was noncompliant with meds for the past three weeks, decompensated, became paranoid, was not sleeping, had depressive symptoms, not able to function, was keep calling multiple times during the night time to her kids, pt had feeling that she is a burden for her family, wanted to . patient was seen today for follow-up, as per patient she had a good night's sleep, no full anymore, patient still emotional labile, needy and intrusive, patient keep asking the same question all over and over again, "promise that he will not keep me here forever?" patient is still paranoid, but with mild improvement, patient still depressed, emotionally labile, was tearful, needy, childlike demeanor. as per nursing report patient is more pleasant, has fair appetite, adjusting to the unit as well, no agitation, no aggression. Patient tolerates medications well, no side effects observed or reported. Impression: schizoaffective disorder disorder, bipolar type, most recent episode depression Medication Change: Yes (Seroquel increased Celexa increased) Medical Record Reviewed: Yes Consults ordered or reviewed: Dr. Wilder consult appreciated Patient status post fall was seen by house physician Mental Status Examination - Cognitive Function Orientation: Person, Place, Situation, Time Memory: Intact Attention: Poor Concentration: Poor Association: Loose Fund of Knowledge: Poor - Mood Mood: Depressed, Anxious - Affect Affect: Constricted (and tearful) - Formal Thought Process Formal Thought Process: Delusions (some improvement), Paranoia (some improvement ), Loosening of associations - Suicidal Ideation Suicidal Ideation: No - Homicidal Ideation Homicidal Ideation: No Goal/Treatment Plan - Goal/Treatment Plan Need for Continued Stay: Remain at risks for inpatient hospitalization, Severe depression anxiety, Discharge may exacerbated symptoms, Severe functional impairment Progress Toward Problem(s) and Goals/Treatment Plan: milieu/structure/supportive therapy Amlodipine Besylate/Benazepril [Amlodipine-Benazepril 10-20 mg] 1 tab PO DAILY will be resumed by medical team Glimepiride 1 mg PO BID will be resumed by medical team Metformin HCl [Glucophage] 850 mg PO BID will be resumed by medical team Quetiapine Fumarate [Seroquel] 200mg po hs for psychosis and mood stabilization Thioridazine was discontinued Celexa 15 mg daily for depression and anxiety Vit D2 50,000 units PO QWK will be resumed by medical team SW evaluation PRN meds will monitor closely collaterals from daughter appreciated. Estimated Date of D/C: 02/09/17 (we'll monitor closely)
--- NOTE | 2017-02-05 13:38 | PN ---
DATE: 02/05/2017 The patient is a 71-year-old, seen and examined, sitting in chair. Seems much brighter and awake. S he states she feels a lot better. She slept better. She wants to go home. PHYSICAL EXAMINATION: VITAL SIGNS: She is afebrile, pulse 83, respirations 17, blood pressure 128/87. LUNGS: Bilateral fair airflow, no rhonchi or crackle. HEART: S1, S2 audible. ABDOMEN: Soft, nontender, no rebound, no guarding. NEUROLOGIC: The patient is awake and alert, communicative. ASSESSMENT: 1. Depression. 2. History of bipolar disorder. 3. Non-insulin dependent diabetes. 4. Hypertension. 5. Hyperlipidemia. PLAN: Will monitor patient's blood sugar. Her medication is being adjusted by psychiatrist and disc harge plan according to psychiatrist recommendation. Harry Cristina MD cc: [phone] TT: 02/05/2017 13:37:46 Confirmation # [id number] Dictation # [id number] en
--- NOTE | 2017-02-05 16:30 | PCM.PYCHPN ---
Psychiatric Progress Note - Psychiatric Progress Note Patient seen today, length of contact: 30 minutes Patient Chief Complaint: "I am better" Problems Identified/Issues Discussed: Suicide/ homicide prevention, past psychiatric h/o, current psychiatric symptoms , medical problems, risk/benefits and alternatives of medications, medications compliance, coping strategies, substance abuse h/o, relapse prevention, importance of follow up with psychiatrist and therapist, discharge plan. Medical Problems: hypertension, dyslipidemia, arthritis Diagnostic Results: 02/01/17 14:35 02/01/17 14:35 Lab Results 02/03/17 12:04: POC Glucose (mg/dL) 120 H 02/03/17 07:53: POC Glucose (mg/dL) 112 H 02/02/17 21:05: POC Glucose (mg/dL) 244 H 02/02/17 15:56: POC Glucose (mg/dL) 168 H 02/02/17 11:54: POC Glucose (mg/dL) 270 H 02/01/17 16:10: Urine Opiates Screen Negative, Urine Methadone Screen Negative, Ur Barbiturates Screen Negative, Ur Phencyclidine Scrn Negative, Ur Amphetamines Screen Negative, U Benzodiazepines Scrn Negative, U Oth Cocaine Metabols Negative, U Cannabinoids Screen Negative 02/01/17 16:10: Urine Color Yellow, Urine Appearance Sl cloudy, Urine pH 5.5, Ur Specific [place] >= 1.030, Urine Protein Negative, Urine Glucose (UA) Negative, Urine Ketones Trace H, Urine Blood Small H, Urine Nitrate Negative, Urine Bilirubin Negative, Urine Urobilinogen 0.2, Ur Leukocyte Esterase Small H , Urine RBC 2 - 5, Urine WBC 2 - 5, Ur Epithelial Cells Many, Urine Bacteria Few 02/01/17 14:35: Alcohol, Quantitative < 10 02/01/17 14:35: Salicylates < 1 L, Acetaminophen < 10.0 L 02/01/17 14:35: Sodium 143, Potassium 4.0, Chloride 106, Carbon Dioxide 24, Anion Gap 17, BUN 17, Creatinine 0.9, Est GFR ( Amer) > 60, Est GFR (Non- Af Amer) > 60, Random Glucose 160 H, Calcium 9.6, Total Bilirubin 0.4, AST 18, ALT 23, Alkaline Phosphatase 66, Total Protein 6.8, Albumin 4.1, Globulin 2.7, Albumin/Globulin Ratio 1.5 02/01/17 14:35: WBC 7.2 D, RBC 4.41, Hgb 12.6, Hct 38.8, MCV 88.0, MCH 28.6, MCHC 32.5, RDW 14.2, Plt Count 331, MPV 9.7, Gran % 73.1 H, Lymph % (Auto) 19.9 L, [place] % (Auto) 5.7, Eos % (Auto) 1.0 L, Baso % (Auto) 0.3, Gran # 5.25, Lymph # 1.4, [place] # 0.4, Eos # 0.1, Baso # 0.02 Vital Signs Temp Pulse Resp BP Pulse Ox 02/03/17 07:41 97.9 F 81 20 142/76 02/02/17 16:24 72 161/82 H 02/02/17 07:38 97.5 F L 78 20 139/66 02/01/17 17:00 98 H 18 128/70 95 02/01/17 14:10 76 18 119/76 99 02/01/17 12:42 97.6 F 85 18 113/70 95 Temp Pulse Resp BP Pulse Ox 97.6 F 83 17 152/86 H 95 02/04/17 06:37 02/04/17 06:37 02/04/17 06:37 02/04/17 06:37 02/01/17 17:00 Abnormal Lab Results 02/03/17 02/03/17 02/04/17 16:24 21:49 07:22 POC Glucose (mg/dL) 212 H 166 H 108 02/04/17 11:30 POC Glucose (mg/dL) 209 H Temp Pulse Resp BP Pulse Ox 97.6 F 73 17 163/90 H 95 02/04/17 06:37 02/05/17 16:01 02/04/17 06:37 02/05/17 16:01 02/01/17 17:00 DSM 5 Symptoms Update: shortly pt has long h/o schizoaffective disorder, bipolar type, h/o multiple psych admissions, under HILLARY Esquivel at [facility], pt was noncompliant with meds for the past three weeks, decompensated, became paranoid, was not sleeping, had depressive symptoms, not able to function, was keep calling multiple times during the night time to her kids, pt had feeling that she is a burden for her family, wanted to . pt was seen in her room, some positive changes, took a shower, less intrusive, more pleasant, emotionally more stable,depression, needs further evaluation and stabilization. some paranoia still present, pt feels that this advertising copywriter will never d/c this pt. patient said that her family is willing to take her back after medical and psychiatric stabilization, pt less paranoid towards them. as per nursing report patient is more pleasant, has fair appetite, adjusting to the unit as well, no agitation, no aggression. Patient tolerates medications well, no side effects observed or reported. Impression: schizoaffective disorder disorder, bipolar type, most recent episode depression Medication Change: Yes (Seroquel increased Celexa increased yesterday) Medical Record Reviewed: Yes Consults ordered or reviewed: Dr. Wilder consult appreciated Patient status post fall was seen by house physician Mental Status Examination - Cognitive Function Orientation: Person, Place, Situation, Time Memory: Intact Attention: Poor Concentration: Poor Association: Loose Fund of Knowledge: Poor - Mood Mood: Depressed, Anxious - Affect Affect: Constricted (and tearful) - Formal Thought Process Formal Thought Process: Delusions (some improvement), Paranoia (some improvement ), Loosening of associations - Suicidal Ideation Suicidal Ideation: No - Homicidal Ideation Homicidal Ideation: No Goal/Treatment Plan - Goal/Treatment Plan Need for Continued Stay: Remain at risks for inpatient hospitalization, Severe depression anxiety, Discharge may exacerbated symptoms, Severe functional impairment Progress Toward Problem(s) and Goals/Treatment Plan: milieu/structure/supportive therapy Amlodipine Besylate/Benazepril [Amlodipine-Benazepril 10-20 mg] 1 tab PO DAILY will be resumed by medical team Glimepiride 1 mg PO BID will be resumed by medical team Metformin HCl [Glucophage] 850 mg PO BID will be resumed by medical team Quetiapine Fumarate [Seroquel] 200mg po hs for psychosis and mood stabilization Thioridazine was discontinued Celexa 15 mg daily for depression and anxiety Vit D2 50,000 units PO QWK will be resumed by medical team SW evaluation PRN meds will monitor closely collaterals from daughter appreciated. Estimated Date of D/C: 02/09/17 (we'll monitor closely)
--- NOTE | 2017-02-06 13:50 | PN ---
DATE: 02/06/2017 SUBJECTIVE: The patient is 71 years old, seen and examined, sitting in dayroom, eating her lunch, an xious to go home. PHYSICAL EXAMINATION: VITAL SIGNS: She is afebrile, pulse 69, respirations 20, blood pressure 157/66. LUNGS: Bilateral good airflow, no rhonchi or crackle. HEART: S1, S2 audible. ABDOMEN: Soft, nontender, no rebound, no guarding. NEUROLOGIC: She is awake and alert, able to communicate. LABORATORY EXAM: Blood sugar is 300. ASSESSMENT: 1. History of depression. 2. Non-insulin dependent diabetes. 3. Hypertension. 4. Hyperlipidemia. 5. Degenerative disk disease. PLAN: I will increase her Amaryl to 2 mg before breakfast and dinner. We will continue her on curre nt metformin. Monitor her blood sugar closely and readjust her medication according to her fingersti ck report. Harry Cristina MD cc: [phone] TT: 02/06/2017 13:50:04 Confirmation # [id number] Dictation # [id number] william
--- NOTE | 2017-02-06 16:10 | PCM.PYCHPN ---
Psychiatric Progress Note - Psychiatric Progress Note Patient seen today, length of contact: 30 minutes Patient Chief Complaint: "I want to go home..." Problems Identified/Issues Discussed: Suicide/ homicide prevention, past psychiatric h/o, current psychiatric symptoms , medical problems, risk/benefits and alternatives of medications, medications compliance, coping strategies, substance abuse h/o, relapse prevention, importance of follow up with psychiatrist and therapist, discharge plan. Medical Problems: hypertension, dyslipidemia, arthritis Diagnostic Results: 02/01/17 14:35 02/01/17 14:35 Lab Results 02/03/17 12:04: POC Glucose (mg/dL) 120 H 02/03/17 07:53: POC Glucose (mg/dL) 112 H 02/02/17 21:05: POC Glucose (mg/dL) 244 H 02/02/17 15:56: POC Glucose (mg/dL) 168 H 02/02/17 11:54: POC Glucose (mg/dL) 270 H 02/01/17 16:10: Urine Opiates Screen Negative, Urine Methadone Screen Negative, Ur Barbiturates Screen Negative, Ur Phencyclidine Scrn Negative, Ur Amphetamines Screen Negative, U Benzodiazepines Scrn Negative, U Oth Cocaine Metabols Negative, U Cannabinoids Screen Negative 02/01/17 16:10: Urine Color Yellow, Urine Appearance Sl cloudy, Urine pH 5.5, Ur Specific [place] >= 1.030, Urine Protein Negative, Urine Glucose (UA) Negative, Urine Ketones Trace H, Urine Blood Small H, Urine Nitrate Negative, Urine Bilirubin Negative, Urine Urobilinogen 0.2, Ur Leukocyte Esterase Small H , Urine RBC 2 - 5, Urine WBC 2 - 5, Ur Epithelial Cells Many, Urine Bacteria Few 02/01/17 14:35: Alcohol, Quantitative < 10 02/01/17 14:35: Salicylates < 1 L, Acetaminophen < 10.0 L 02/01/17 14:35: Sodium 143, Potassium 4.0, Chloride 106, Carbon Dioxide 24, Anion Gap 17, BUN 17, Creatinine 0.9, Est GFR ( Amer) > 60, Est GFR (Non- Af Amer) > 60, Random Glucose 160 H, Calcium 9.6, Total Bilirubin 0.4, AST 18, ALT 23, Alkaline Phosphatase 66, Total Protein 6.8, Albumin 4.1, Globulin 2.7, Albumin/Globulin Ratio 1.5 02/01/17 14:35: WBC 7.2 D, RBC 4.41, Hgb 12.6, Hct 38.8, MCV 88.0, MCH 28.6, MCHC 32.5, RDW 14.2, Plt Count 331, MPV 9.7, Gran % 73.1 H, Lymph % (Auto) 19.9 L, [place] % (Auto) 5.7, Eos % (Auto) 1.0 L, Baso % (Auto) 0.3, Gran # 5.25, Lymph # 1.4, [place] # 0.4, Eos # 0.1, Baso # 0.02 Vital Signs Temp Pulse Resp BP Pulse Ox 02/03/17 07:41 97.9 F 81 20 142/76 02/02/17 16:24 72 161/82 H 02/02/17 07:38 97.5 F L 78 20 139/66 02/01/17 17:00 98 H 18 128/70 95 02/01/17 14:10 76 18 119/76 99 02/01/17 12:42 97.6 F 85 18 113/70 95 Temp Pulse Resp BP Pulse Ox 97.6 F 83 17 152/86 H 95 02/04/17 06:37 02/04/17 06:37 02/04/17 06:37 02/04/17 06:37 02/01/17 17:00 Abnormal Lab Results 02/03/17 02/03/17 02/04/17 16:24 21:49 07:22 POC Glucose (mg/dL) 212 H 166 H 108 02/04/17 11:30 POC Glucose (mg/dL) 209 H Temp Pulse Resp BP Pulse Ox 97.6 F 73 17 163/90 H 95 02/04/17 06:37 02/05/17 16:01 02/04/17 06:37 02/05/17 16:01 02/01/17 17:00 Temp Pulse Resp BP Pulse Ox 98.2 F 69 20 157/66 H 95 02/06/17 07:26 02/06/17 07:26 02/06/17 07:26 02/06/17 07:26 02/01/17 17:00 DSM 5 Symptoms Update: shortly pt has long h/o schizoaffective disorder, bipolar type, h/o multiple psych admissions, under LADLE WATCHER Alvin at [facility], pt was noncompliant with meds for the past three weeks, decompensated, became paranoid, was not sleeping, had depressive symptoms, not able to function, was keep calling multiple times during the night time to her kids, pt had feeling that she is a burden for her family, wanted to . pt was seen in her room, pt is less intrusive, more pleasant, emotionally more stable, pt still has depression, needs further evaluation and stabilization. some paranoia still present, pt feels that this chief underwriter will never d/c this pt. pt willing to have a family meeting. as per nursing report patient is more pleasant, has fair appetite, adjusting to the unit as well, no agitation, no aggression. Patient tolerates medications well, no side effects observed or reported. Impression: schizoaffective disorder disorder, bipolar type, most recent episode depression Medication Change: Yes (Celexa increased) Medical Record Reviewed: Yes Consults ordered or reviewed: Dr. Wilder consult appreciated Patient status post fall was seen by house physician Mental Status Examination - Cognitive Function Orientation: Person, Place, Situation, Time Memory: Intact Attention: Poor Concentration: Poor Association: Loose Fund of Knowledge: Poor - Mood Mood: Depressed, Anxious - Affect Affect: Constricted (and tearful) - Formal Thought Process Formal Thought Process: Delusions (some improvement), Paranoia (some improvement ), Loosening of associations - Suicidal Ideation Suicidal Ideation: No - Homicidal Ideation Homicidal Ideation: No Goal/Treatment Plan - Goal/Treatment Plan Need for Continued Stay: Remain at risks for inpatient hospitalization, Severe depression anxiety, Discharge may exacerbated symptoms, Severe functional impairment Progress Toward Problem(s) and Goals/Treatment Plan: milieu/structure/supportive therapy Amlodipine Besylate/Benazepril [Amlodipine-Benazepril 10-20 mg] 1 tab PO DAILY will be resumed by medical team Glimepiride 1 mg PO BID will be resumed by medical team Metformin HCl [Glucophage] 850 mg PO BID will be resumed by medical team Quetiapine Fumarate [Seroquel] 200mg po hs for psychosis and mood stabilization Thioridazine was discontinued Celexa 20 mg daily for depression and anxiety Vit D2 50,000 units PO QWK will be resumed by medical team SW evaluation PRN meds will monitor closely collaterals from daughter appreciated. Estimated Date of D/C: 02/09/17 (we'll monitor closely)
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
--- NOTE | 2017-02-07 19:12 | CP.PCM.PN ---
Subjective - Date & Time of Evaluation Date of Evaluation: 02/07/17 Time of Evaluation: 19:08 - Subjective Subjective: Patient claimed that she fell last night on her knees. Complains of left knee pain, left elbow pain. No other complaints Does not remember if she passed out or hit her head or lost her consciousness. Has no headache now. Denies nausea, dizziness , weakness , paraesthesia. ROS:Negative except as mentioned above. FSBS:147 mg % now.It was 67 mg %, 203 mg % last night. This 71 year old white woman was admitted for worsening depression. Has PMH of NIDDM, HTN, HLD, bipolar disorder, Schizophrenia,arthritis, hystrectomy, tonsillectomy. Objective - Vital Signs/Intake and Output Vital Signs (last 24 hours): Temp Pulse Resp BP Pulse Ox 98.4 F 81 20 163/76 H 95 02/07/17 07:33 02/07/17 16:12 02/07/17 07:33 02/07/17 16:12 02/01/17 17:00 - Medications Medications: Current Medications Amlodipine Besylate (Norvasc) 5 mg PO DAILY [facility] Last Admin: 02/07/17 13:14 Dose: 5 mg Citalopram Hydrobromide (Celexa) 20 mg PO DAILY [facility] Last Admin: 02/07/17 08:50 Dose: 20 mg Glimepiride (Amaryl) 2 mg PO BID [facility] Last Admin: 02/07/17 17:36 Dose: 2 mg Lorazepam (Ativan) 0.5 mg PO TID PRN; Protocol PRN Reason: agitation/anxiety Last Admin: 02/07/17 00:05 Dose: 0.5 mg Losartan Potassium (Cozaar) 100 mg PO DAILY [facility] Last Admin: 02/07/17 08:49 Dose: 100 mg Metformin HCl (Glucophage) 850 mg PO BID KAYLIN Last Admin: 02/07/17 17:36 Dose: 850 mg Quetiapine Fumarate (Seroquel) 300 mg PO HS KAYLIN PRN Reason: Protocol Zaleplon (Sonata) 5 mg PO HS PRN PRN Reason: Insomnia Last Admin: 02/06/17 21:08 Dose: 5 mg Ziprasidone (Geodon Inj) 10 mg IM Q8H PRN; Protocol PRN Reason: severe agitation - Constitutional Appears: Well, No Acute Distress - Head Exam Head Exam: ATRAUMATIC, NORMAL INSPECTION, NORMOCEPHALIC - Eye Exam Eye Exam: Normal appearance - ENT Exam ENT Exam: Normal External Ear Exam - Neck Exam Neck Exam: Normal Inspection - Respiratory Exam Respiratory Exam: NORMAL BREATHING PATTERN - Cardiovascular Exam Cardiovascular Exam: absent: JVD - GI/Abdominal Exam GI & Abdominal Exam: absent: Distended - Rectal Exam Rectal Exam: Deferred - Extremities Exam Additional comments: Left knee anterior small bruise present. No tenderness, no swelling , no deformity. Full ROM present. Left elbow posterior aspect has small abrasion. Left elbow has no deformity, ROM is full, is non tender. Ambulating well. - Back Exam Back Exam: NORMAL INSPECTION - Neurological Exam Neurological Exam: Alert, Oriented x3 - Psychiatric Exam Psychiatric exam: Normal Affect, Normal Mood - Skin Skin Exam: Normal Color Assessment and Plan - Assessment and Plan (Free Text) Assessment: S/P fall. Left knee contusion. Left elbow contusion. ?Head contusion. Bipolar disorder. Schizophrenia. Non insulin dependent DM . Hypertension. Plan: Bacitracin ointment to left knee and elbow abrasions. Monitor. Xrays of left knee and or left elbow at discretion of PMD. Continue present management.
[2017-02-07] MEDS ORDERED: Magnesium Hydroxide Susp 30 ml UD PO PRN (21:20)
[2017-02-07] MEDS ORDERED: Alum-Mag Hydrox-Simethicone Susp (30 mL) PO PRN (21:20)
--- NOTE | 2017-02-08 14:05 | PN ---
DATE: 02/08/2017 SUBJECTIVE: The patient is a 71-year-old, seen and examined, seems to be angry today. She states he r roommate is teasing her that she is going home and she is going to be here forever. She also compl ained of feeling weak. She fell and complained of knee pain. PHYSICAL EXAMINATION: VITAL SIGNS: She is afebrile, pulse 105, respirations 20, blood pressure 153/83. LUNGS: Bilateral fair airflow, no rhonchi or crackle. HEART: S1, S2 audible. ABDOMEN: Soft, nontender, no rebound, no guarding. NEUROLOGIC: The patient is awake and alert, able to communicate, ambulatory. LABORATORY EXAMINATION: There is no new lab work available today. ASSESSMENT: 1. Anxiety. 2. Hypertension. 3. Non-insulin dependent diabetes. 4. History of schizoaffective disorder. 5. History of paranoia. PLAN: I will request for physical therapy evaluation. Her blood sugar seems to be under fair contro l. I will continue her amlodipine 5 mg at bedtime and losartan in the morning. Monitor blood sugar and blood pressure closely. We will follow up patient in a.m. Harry Cristina MD cc: [id number] TT: 02/08/2017 14:05:11 Confirmation # [id number] Dictation # [id number]
--- NOTE | 2017-02-08 15:51 | PCM.PYCHPN ---
Psychiatric Progress Note - Psychiatric Progress Note Patient seen today, length of contact: 30 minutes Patient Chief Complaint: "you will keep me here forever..." Problems Identified/Issues Discussed: Suicide/ homicide prevention, past psychiatric h/o, current psychiatric symptoms , medical problems, risk/benefits and alternatives of medications, medications compliance, coping strategies, substance abuse h/o, relapse prevention, importance of follow up with psychiatrist and therapist, discharge plan. Medical Problems: hypertension, dyslipidemia, arthritis Diagnostic Results: 02/01/17 14:35 02/01/17 14:35 Lab Results 02/03/17 12:04: POC Glucose (mg/dL) 120 H 02/03/17 07:53: POC Glucose (mg/dL) 112 H 02/02/17 21:05: POC Glucose (mg/dL) 244 H 02/02/17 15:56: POC Glucose (mg/dL) 168 H 02/02/17 11:54: POC Glucose (mg/dL) 270 H 02/01/17 16:10: Urine Opiates Screen Negative, Urine Methadone Screen Negative, Ur Barbiturates Screen Negative, Ur Phencyclidine Scrn Negative, Ur Amphetamines Screen Negative, U Benzodiazepines Scrn Negative, U Oth Cocaine Metabols Negative, U Cannabinoids Screen Negative 02/01/17 16:10: Urine Color Yellow, Urine Appearance Sl cloudy, Urine pH 5.5, Ur Specific [place] >= 1.030, Urine Protein Negative, Urine Glucose (UA) Negative, Urine Ketones Trace H, Urine Blood Small H, Urine Nitrate Negative, Urine Bilirubin Negative, Urine Urobilinogen 0.2, Ur Leukocyte Esterase Small H , Urine RBC 2 - 5, Urine WBC 2 - 5, Ur Epithelial Cells Many, Urine Bacteria Few 02/01/17 14:35: Alcohol, Quantitative < 10 02/01/17 14:35: Salicylates < 1 L, Acetaminophen < 10.0 L 02/01/17 14:35: Sodium 143, Potassium 4.0, Chloride 106, Carbon Dioxide 24, Anion Gap 17, BUN 17, Creatinine 0.9, Est GFR ( Amer) > 60, Est GFR (Non- Af Amer) > 60, Random Glucose 160 H, Calcium 9.6, Total Bilirubin 0.4, AST 18, ALT 23, Alkaline Phosphatase 66, Total Protein 6.8, Albumin 4.1, Globulin 2.7, Albumin/Globulin Ratio 1.5 02/01/17 14:35: WBC 7.2 D, RBC 4.41, Hgb 12.6, Hct 38.8, MCV 88.0, MCH 28.6, MCHC 32.5, RDW 14.2, Plt Count 331, MPV 9.7, Gran % 73.1 H, Lymph % (Auto) 19.9 L, [place] % (Auto) 5.7, Eos % (Auto) 1.0 L, Baso % (Auto) 0.3, Gran # 5.25, Lymph # 1.4, [place] # 0.4, Eos # 0.1, Baso # 0.02 Vital Signs Temp Pulse Resp BP Pulse Ox 02/03/17 07:41 97.9 F 81 20 142/76 02/02/17 16:24 72 161/82 H 02/02/17 07:38 97.5 F L 78 20 139/66 02/01/17 17:00 98 H 18 128/70 95 02/01/17 14:10 76 18 119/76 99 02/01/17 12:42 97.6 F 85 18 113/70 95 Temp Pulse Resp BP Pulse Ox 97.6 F 83 17 152/86 H 95 02/04/17 06:37 02/04/17 06:37 02/04/17 06:37 02/04/17 06:37 02/01/17 17:00 Abnormal Lab Results 02/03/17 02/03/17 02/04/17 16:24 21:49 07:22 POC Glucose (mg/dL) 212 H 166 H 108 02/04/17 11:30 POC Glucose (mg/dL) 209 H Temp Pulse Resp BP Pulse Ox 97.6 F 73 17 163/90 H 95 02/04/17 06:37 02/05/17 16:01 02/04/17 06:37 02/05/17 16:01 02/01/17 17:00 Temp Pulse Resp BP Pulse Ox 98.2 F 69 20 157/66 H 95 02/06/17 07:26 02/06/17 07:26 02/06/17 07:26 02/06/17 07:26 02/01/17 17:00 DSM 5 Symptoms Update: shortly pt has long h/o schizoaffective disorder, bipolar type, h/o multiple psych admissions, under ENERGY TECHNICIAN Alvin at [facility], pt was noncompliant with meds for the past three weeks, decompensated, became paranoid, was not sleeping, had depressive symptoms, not able to function, was keep calling multiple times during the night time to her kids, pt had feeling that she is a burden for her family, wanted to . pt was seen next to the nursing station, much calmer, less psychotic. family meeting tomorrow. as per RN report pt fell, was seen by medical team, meds adjusted, PT will evaluate pt. as per nursing report patient is more pleasant, has fair appetite, adjusting to the unit as well, no agitation, no aggression. Patient tolerates medications well, no side effects observed or reported. Impression: schizoaffective disorder disorder, bipolar type, most recent episode depression Medication Change: Yes (seroquel increased) Medical Record Reviewed: Yes Mental Status Examination - Cognitive Function Orientation: Person, Place, Situation, Time Memory: Intact Attention: Poor Concentration: Poor Association: Loose Fund of Knowledge: Poor - Mood Mood: Depressed, Anxious - Affect Affect: Constricted (and tearful) - Formal Thought Process Formal Thought Process: Delusions (some improvement), Paranoia (some improvement ), Loosening of associations - Suicidal Ideation Suicidal Ideation: No - Homicidal Ideation Homicidal Ideation: No Goal/Treatment Plan - Goal/Treatment Plan Need for Continued Stay: Remain at risks for inpatient hospitalization, Severe depression anxiety, Discharge may exacerbated symptoms, Severe functional impairment Progress Toward Problem(s) and Goals/Treatment Plan: milieu/structure/supportive therapy s/p fall PT will be called meds adjusted fall precaution will provide with the walker family meeting tomorrow Amlodipine Besylate/Benazepril [Amlodipine-Benazepril 10-20 mg] 1 tab PO DAILY will be resumed by medical team Glimepiride 1 mg PO BID will be resumed by medical team Metformin HCl [Glucophage] 850 mg PO BID will be resumed by medical team Quetiapine Fumarate [Seroquel] 300mg po hs for psychosis and mood stabilization Thioridazine was discontinued Celexa 20 mg daily for depression and anxiety Vit D2 50,000 units PO QWK will be resumed by medical team SW evaluation PRN meds will monitor closely collaterals from daughter appreciated. Estimated Date of D/C: 02/09/17 (we'll monitor closely)
--- NOTE | 2017-02-09 15:00 | PCM.PYCHPN ---
Psychiatric Progress Note - Psychiatric Progress Note Patient seen today, length of contact: 30 minutes Patient Chief Complaint: "nobody loves me..." Problems Identified/Issues Discussed: Suicide/ homicide prevention, past psychiatric h/o, current psychiatric symptoms , medical problems, risk/benefits and alternatives of medications, medications compliance, coping strategies, substance abuse h/o, relapse prevention, importance of follow up with psychiatrist and therapist, discharge plan. Medical Problems: hypertension, dyslipidemia, arthritis Diagnostic Results: 02/01/17 14:35 02/01/17 14:35 Lab Results 02/03/17 12:04: POC Glucose (mg/dL) 120 H 02/03/17 07:53: POC Glucose (mg/dL) 112 H 02/02/17 21:05: POC Glucose (mg/dL) 244 H 02/02/17 15:56: POC Glucose (mg/dL) 168 H 02/02/17 11:54: POC Glucose (mg/dL) 270 H 02/01/17 16:10: Urine Opiates Screen Negative, Urine Methadone Screen Negative, Ur Barbiturates Screen Negative, Ur Phencyclidine Scrn Negative, Ur Amphetamines Screen Negative, U Benzodiazepines Scrn Negative, U Oth Cocaine Metabols Negative, U Cannabinoids Screen Negative 02/01/17 16:10: Urine Color Yellow, Urine Appearance Sl cloudy, Urine pH 5.5, Ur Specific [place] >= 1.030, Urine Protein Negative, Urine Glucose (UA) Negative, Urine Ketones Trace H, Urine Blood Small H, Urine Nitrate Negative, Urine Bilirubin Negative, Urine Urobilinogen 0.2, Ur Leukocyte Esterase Small H , Urine RBC 2 - 5, Urine WBC 2 - 5, Ur Epithelial Cells Many, Urine Bacteria Few 02/01/17 14:35: Alcohol, Quantitative < 10 02/01/17 14:35: Salicylates < 1 L, Acetaminophen < 10.0 L 02/01/17 14:35: Sodium 143, Potassium 4.0, Chloride 106, Carbon Dioxide 24, Anion Gap 17, BUN 17, Creatinine 0.9, Est GFR ( Amer) > 60, Est GFR (Non- Af Amer) > 60, Random Glucose 160 H, Calcium 9.6, Total Bilirubin 0.4, AST 18, ALT 23, Alkaline Phosphatase 66, Total Protein 6.8, Albumin 4.1, Globulin 2.7, Albumin/Globulin Ratio 1.5 02/01/17 14:35: WBC 7.2 D, RBC 4.41, Hgb 12.6, Hct 38.8, MCV 88.0, MCH 28.6, MCHC 32.5, RDW 14.2, Plt Count 331, MPV 9.7, Gran % 73.1 H, Lymph % (Auto) 19.9 L, [place] % (Auto) 5.7, Eos % (Auto) 1.0 L, Baso % (Auto) 0.3, Gran # 5.25, Lymph # 1.4, [place] # 0.4, Eos # 0.1, Baso # 0.02 Vital Signs Temp Pulse Resp BP Pulse Ox 02/03/17 07:41 97.9 F 81 20 142/76 02/02/17 16:24 72 161/82 H 02/02/17 07:38 97.5 F L 78 20 139/66 02/01/17 17:00 98 H 18 128/70 95 02/01/17 14:10 76 18 119/76 99 02/01/17 12:42 97.6 F 85 18 113/70 95 Temp Pulse Resp BP Pulse Ox 97.6 F 83 17 152/86 H 95 02/04/17 06:37 02/04/17 06:37 02/04/17 06:37 02/04/17 06:37 02/01/17 17:00 Abnormal Lab Results 02/03/17 02/03/17 02/04/17 16:24 21:49 07:22 POC Glucose (mg/dL) 212 H 166 H 108 02/04/17 11:30 POC Glucose (mg/dL) 209 H Temp Pulse Resp BP Pulse Ox 97.6 F 73 17 163/90 H 95 02/04/17 06:37 02/05/17 16:01 02/04/17 06:37 02/05/17 16:01 02/01/17 17:00 Temp Pulse Resp BP Pulse Ox 98.2 F 69 20 157/66 H 95 02/06/17 07:26 02/06/17 07:26 02/06/17 07:26 02/06/17 07:26 02/01/17 17:00 DSM 5 Symptoms Update: shortly pt has long h/o schizoaffective disorder, bipolar type, h/o multiple psych admissions, under BARREL REPAIRER Alvin at [facility], pt was noncompliant with meds for the past three weeks, decompensated, became paranoid, was not sleeping, had depressive symptoms, not able to function, was keep calling multiple times during the night time to her kids, pt had feeling that she is a burden for her family, wanted to . pt was seen next to the nursing station, pt again was paranoid said "nobody loves me, everybody hates me, my daughter wants to get rid of me....", pt had a very good day yesterday, took shower, was less paranoid, pt sill has no stable improvement yet. no episodes of falling. as per nursing report patient is more pleasant, has fair appetite, adjusting to the unit as well, no agitation, no aggression. Patient tolerates medications well, no side effects observed or reported. Impression: schizoaffective disorder disorder, bipolar type, most recent episode depression Medication Change: Yes (seroquel increased) Medical Record Reviewed: Yes Consults ordered or reviewed: Dr. Wilder consult appreciated Patient status post fall was seen by house physician Mental Status Examination - Cognitive Function Orientation: Person, Place, Situation, Time Memory: Intact Attention: Poor Concentration: Poor Association: Loose Fund of Knowledge: Poor - Mood Mood: Depressed, Anxious - Affect Affect: Constricted (and tearful) - Formal Thought Process Formal Thought Process: Delusions (some improvement), Paranoia (some improvement ), Loosening of associations - Suicidal Ideation Suicidal Ideation: No - Homicidal Ideation Homicidal Ideation: No Goal/Treatment Plan - Goal/Treatment Plan Need for Continued Stay: Remain at risks for inpatient hospitalization, Severe depression anxiety, Discharge may exacerbated symptoms, Severe functional impairment Progress Toward Problem(s) and Goals/Treatment Plan: milieu/structure/supportive therapy s/p fall PT will be called meds adjusted fall precaution will provide with the walker family meeting tomorrow Amlodipine Besylate/Benazepril [Amlodipine-Benazepril 10-20 mg] 1 tab PO DAILY will be resumed by medical team Glimepiride 1 mg PO BID will be resumed by medical team Metformin HCl [Glucophage] 850 mg PO BID will be resumed by medical team Quetiapine Fumarate [Seroquel] 300mg po hs for psychosis and mood stabilization Thioridazine was discontinued Celexa 30 mg daily for depression and anxiety Vit D2 50,000 units PO QWK will be resumed by medical team SW evaluation PRN meds will monitor closely collaterals from daughter appreciated. Estimated Date of D/C: 02/13/17 (we'll monitor closely)
--- NOTE | 2017-02-09 17:15 | PN ---
DATE: 02/09/2017 SUBJECTIVE: The patient is a 71-year-old female seen and examined, very anxious. She states she swann s need to be here. She states she stopped taking her medication, but since she stopped it, she feels a lot better. PHYSICAL EXAMINATION: VITAL SIGNS: The patient is afebrile, pulse 80, respirations 20, blood pressure 154/67. LUNGS: Bilateral good airflow, no rhonchi or crackle. HEART: S1, S2 audible. ABDOMEN: Soft, nontender, no rebound, no guarding. NEUROLOGIC: She is awake and alert, able to communicate, ambulatory. LABORATORY: There is no new lab available. Blood sugar is 198. This afternoon, level is 123. Urin alysis is unremarkable. ASSESSMENT AND PLAN: 1. History of bipolar disorder. 2. Depression and anxiety. 3. Non-insulin dependent diabetes. 4. Hypertension. 5. Hyperlipidemia. PLAN: Currently, the patient is on glimepiride 2 mg twice a day. We will continue that. She is on Celexa. She is on losartan. She has been started on metformin. She is also on amlodipine and getti ng Seroquel 200 at bedtime and 200 mg in the morning. Her behavior is being observed by the psychiat rist and her medication is being adjusted. Harry Cristina MD cc: [id number] TT: 02/09/2017 17:15:07 Confirmation # [id number] Dictation # [id number]
[2017-02-09] MEDS: QUEtiapine 200 mg XR Tab PO SCH (17:43)
--- NOTE | 2017-02-10 08:36 | PCM.PYCHPN ---
Psychiatric Progress Note - Psychiatric Progress Note Patient seen today, length of contact: 25 minutes Patient Chief Complaint: "all right" Problems Identified/Issues Discussed: I reviewed recent notes and met with patient at bedside. She is superficially cooperative, calm and oriented x3. She appears mildly confused this morning however she can participate in a simple interview with me. Reports that her mood is "alright" and she feels like she is getting "a lot better". Affect is a little constricted. Patient specifically denies having hallucinations. Paranoid delusions were not elicited during this first interview. Patient feel safe on the unit. Patient is tolerating her medications and denies any discomfort or pain. There were no behavioral issues overnight. Diagnostic Results: schizoaffective disorder disorder, bipolar type, most recent episode depression Medication Change: No ( ) Medical Record Reviewed: Yes (notes, reports, labs, vitals) Mental Status Examination - Cognitive Function Orientation: Person, Place, Situation, Time Memory: Intact Attention: Poor Concentration: Poor Association: Loose Fund of Knowledge: Poor - Mood Mood: Depressed ("all right"), Anxious - Affect Affect: Constricted (and tearful) - Formal Thought Process Formal Thought Process: Delusions (some improvement), Paranoia (some improvement ), Loosening of associations - Suicidal Ideation Suicidal Ideation: No - Homicidal Ideation Homicidal Ideation: No Goal/Treatment Plan - Goal/Treatment Plan Need for Continued Stay: Remain at risks for inpatient hospitalization, Severe depression anxiety, Discharge may exacerbated symptoms, Severe functional impairment Progress Toward Problem(s) and Goals/Treatment Plan: * c/w current tx and plan * No new weekend labs * Vitals reviewed and noted below: Selected Entries 02/09/17 02/09/17 02/09/17 07:38 08:57 16:20 Temperature 98.2 F Pulse Rate 80 91 H Respiratory 20 Rate Blood Pressure 154/67 H 154/67 H 125/72 Estimated Date of D/C: 02/13/17 (we'll monitor closely)
[2017-02-10] MEDS: QUEtiapine 200 mg XR Tab PO SCH (09:52)
[2017-02-11 07:48] VITALS: RESP 20
--- NOTE | 2017-02-11 08:38 | PCM.PYCHPN ---
Psychiatric Progress Note - Psychiatric Progress Note Patient seen today, length of contact: 25 minutes Patient Chief Complaint: "all right" Problems Identified/Issues Discussed: I reviewed recent notes and met with patient at bedside. She is superficially cooperative, calm and oriented x3. She still appears confused this morning however she can participate in a simple interview with me. Reports that her mood is "all right" and that she feels like she is getting "a lot better". Feels more hopeful. Affect is constricted and preoccupied. Patient specifically denies having hallucinations or paranoia. She feels safe with staff on the unit. Paranoid delusions were not elicited during this second interview. Patient is tolerating her medications and denies any discomfort or pain. There were no behavioral issues over the weekend. Diagnostic Results: schizoaffective disorder disorder, bipolar type, most recent episode depression Medication Change: No ( ) Medical Record Reviewed: Yes (notes, reports, labs, vitals) Mental Status Examination - Cognitive Function Orientation: Person, Place, Situation, Time Memory: Intact Attention: Poor Concentration: Poor Association: Loose Fund of Knowledge: Poor - Mood Mood: Depressed ("all right"), Anxious - Affect Affect: Constricted (and tearful) - Formal Thought Process Formal Thought Process: Delusions (some improvement), Paranoia (some improvement ), Loosening of associations, Other (confused at times) - Suicidal Ideation Suicidal Ideation: No - Homicidal Ideation Homicidal Ideation: No Goal/Treatment Plan - Goal/Treatment Plan Need for Continued Stay: Remain at risks for inpatient hospitalization, Severe depression anxiety, Discharge may exacerbated symptoms, Severe functional impairment Progress Toward Problem(s) and Goals/Treatment Plan: * c/w current tx and plan * No new weekend labs * Vitals reviewed and noted below: Selected Entries 02/11/17 07:47 Temperature 98.2 F Pulse Rate 87 Respiratory 20 Rate Blood Pressure 133/72 Estimated Date of D/C: 02/13/17 (we'll monitor closely)
[2017-02-11] MEDS: QUEtiapine 200 mg XR Tab PO SCH (10:21)
--- NOTE | 2017-02-11 14:07 | PN ---
DATE: 02/11/2017 SUBJECTIVE: The patient is a 71-year-old, seen and examined, upset that is not going home. She stat es she feels better. She will take her medication -- "I don't know why they're not letting me go. " Angry at the family. PHYSICAL EXAMINATION: VITAL SIGNS: She is afebrile, pulse 87, respirations 20, blood pressure 133/72. LUNGS: Bilateral fair airflow, no rhonchi or crackle. HEART: S1, S2 audible. ABDOMEN: Soft, nontender, no rebound, no guarding. NEUROLOGIC: She is awake and alert, able to communicate, ambulatory. ASSESSMENT: 1. Depression. 2. Schizoaffective disorder. 3. Hypertension. 4. Noninsulin dependent diabetes. 5. Hyperlipidemia. PLAN: Continue current medication. Psych medication is being adjusted by psychiatrist and the patien t will be discharged upon of psychiatrist. Harry Cristina MD cc: [phone] TT: 02/11/2017 14:06:44 Confirmation # [id number] Dictation # [id number] ln
--- NOTE | 2017-02-12 08:17 | PN ---
DATE: 02/10/2017 SUBJECTIVE: The patient is a 71-year-old, seen and examined, very anxious to go home. She states sh e does not belong here. She promised she will take medication and will be better off going home. PHYSICAL EXAMINATION: VITAL SIGNS: She is afebrile, pulse 76, respirations 17, blood pressure 138/62. LUNGS: Bilateral fair airflow, no rhonchi or crackle. HEART: S1, S2 audible. ABDOMEN: Soft, nontender, no rebound, no guarding. NEUROLOGIC: The patient is awake and alert, communicative, ambulatory. LABORATORY EXAM: Her blood sugar is 212 this morning, was 115 this morning and 132 last night. ASSESSMENT: 1. History of bipolar disorder. 2. Depression. 3. Non-insulin dependent diabetes. 4. Hypertension. PLAN: We will continue patient on glimepiride. She is on Celexa and losartan. She is on metformin. We will continue that. I will add a dose of Januvia to better control her blood sugar and we will monitor blood sugar closely and reevaluate the patient in a.m. Harry Cristina MD cc: [phone] TT: 02/10/2017 13:41:48 Confirmation # [id number] Dictation # [id number]
[2017-02-12] MEDS: QUEtiapine 200 mg XR Tab PO SCH (09:22)
--- NOTE | 2017-02-12 12:20 | PN ---
DATE: 02/12/2017 SUBJECTIVE: The patient is 71 years old, seen and examined, lying in bed and feels depressed, and s he states she feels a lot better, and will feel much better if she goes home. She states when she st arted taking medication, she is feeling much better. Her psych medication is being adjusted. PHYSICAL EXAMINATION: VITAL SIGNS: She is afebrile, pulse 96, respirations 20, blood pressure 138/74. LUNGS: Bilateral fair airflow. No rhonchi or crackle. HEART: S1, S2 audible. ABDOMEN: Soft, nontender. No rebound, no guarding. NEUROLOGIC: The patient is awake and alert, communicative, ambulatory. ASSESSMENT: 1. Non-insulin dependent diabetes. 2. Hypertension. 3. Hyperlipidemia. 4. Depression. 5. History of bipolar disorder. PLAN: At this point, her blood pressure and diabetes mellitus medicine seems to be appropriate. We will continue that. We will reevaluate the patient in the a.m. Harry Cristina MD cc: [phone] TT: 02/12/2017 12:19:40 Confirmation # [id number] Dictation # [id number] angel luis
--- NOTE | 2017-02-12 16:42 | PCM.PYCHPN ---
Psychiatric Progress Note - Psychiatric Progress Note Patient seen today, length of contact: 30min Patient Chief Complaint: "you will never let me go..." Problems Identified/Issues Discussed: Suicide/ homicide prevention, past psychiatric h/o, current psychiatric symptoms , medical problems, risk/benefits and alternatives of medications, medications compliance, coping strategies, substance abuse h/o, relapse prevention, importance of follow up with psychiatrist and therapist, discharge plan. Medical Problems: hypertension, dyslipidemia, arthritis Diagnostic Results: 02/01/17 14:35 02/01/17 14:35 Lab Results 02/03/17 12:04: POC Glucose (mg/dL) 120 H 02/03/17 07:53: POC Glucose (mg/dL) 112 H 02/02/17 21:05: POC Glucose (mg/dL) 244 H 02/02/17 15:56: POC Glucose (mg/dL) 168 H 02/02/17 11:54: POC Glucose (mg/dL) 270 H 02/01/17 16:10: Urine Opiates Screen Negative, Urine Methadone Screen Negative, Ur Barbiturates Screen Negative, Ur Phencyclidine Scrn Negative, Ur Amphetamines Screen Negative, U Benzodiazepines Scrn Negative, U Oth Cocaine Metabols Negative, U Cannabinoids Screen Negative 02/01/17 16:10: Urine Color Yellow, Urine Appearance Sl cloudy, Urine pH 5.5, Ur Specific [place] >= 1.030, Urine Protein Negative, Urine Glucose (UA) Negative, Urine Ketones Trace H, Urine Blood Small H, Urine Nitrate Negative, Urine Bilirubin Negative, Urine Urobilinogen 0.2, Ur Leukocyte Esterase Small H , Urine RBC 2 - 5, Urine WBC 2 - 5, Ur Epithelial Cells Many, Urine Bacteria Few 02/01/17 14:35: Alcohol, Quantitative < 10 02/01/17 14:35: Salicylates < 1 L, Acetaminophen < 10.0 L 02/01/17 14:35: Sodium 143, Potassium 4.0, Chloride 106, Carbon Dioxide 24, Anion Gap 17, BUN 17, Creatinine 0.9, Est GFR ( Amer) > 60, Est GFR (Non- Af Amer) > 60, Random Glucose 160 H, Calcium 9.6, Total Bilirubin 0.4, AST 18, ALT 23, Alkaline Phosphatase 66, Total Protein 6.8, Albumin 4.1, Globulin 2.7, Albumin/Globulin Ratio 1.5 02/01/17 14:35: WBC 7.2 D, RBC 4.41, Hgb 12.6, Hct 38.8, MCV 88.0, MCH 28.6, MCHC 32.5, RDW 14.2, Plt Count 331, MPV 9.7, Gran % 73.1 H, Lymph % (Auto) 19.9 L, [place] % (Auto) 5.7, Eos % (Auto) 1.0 L, Baso % (Auto) 0.3, Gran # 5.25, Lymph # 1.4, Stokes # 0.4, Eos # 0.1, Baso # 0.02 Vital Signs Temp Pulse Resp BP Pulse Ox 02/03/17 07:41 97.9 F 81 20 142/76 02/02/17 16:24 72 161/82 H 02/02/17 07:38 97.5 F L 78 20 139/66 02/01/17 17:00 98 H 18 128/70 95 02/01/17 14:10 76 18 119/76 99 02/01/17 12:42 97.6 F 85 18 113/70 95 Temp Pulse Resp BP Pulse Ox 97.6 F 83 17 152/86 H 95 02/04/17 06:37 02/04/17 06:37 02/04/17 06:37 02/04/17 06:37 02/01/17 17:00 Abnormal Lab Results 02/03/17 02/03/17 02/04/17 16:24 21:49 07:22 POC Glucose (mg/dL) 212 H 166 H 108 02/04/17 11:30 POC Glucose (mg/dL) 209 H Temp Pulse Resp BP Pulse Ox 97.6 F 73 17 163/90 H 95 02/04/17 06:37 02/05/17 16:01 02/04/17 06:37 02/05/17 16:01 02/01/17 17:00 Temp Pulse Resp BP Pulse Ox 98.2 F 69 20 157/66 H 95 02/06/17 07:26 02/06/17 07:26 02/06/17 07:26 02/06/17 07:26 02/01/17 17:00 DSM 5 Symptoms Update: shortly pt has long h/o schizoaffective disorder, bipolar type, h/o multiple psych admissions, under SERVICE AIDE Alvin at [facility], pt was noncompliant with meds for the past three weeks, decompensated, became paranoid, was not sleeping, had depressive symptoms, not able to function, was keep calling multiple times during the night time to her kids, pt had feeling that she is a burden for her family, wanted to . pt was seen The treatment team meeting, pt again was intrusive and repetitive "verybody is living, you will never discharge me, I'll stay here forever, please let me go home", as per family meeting with patient's [id number], repetitiveness as very common for the patient, pt is doing better, there is some lip tremor, will add cogentin. no episodes of falling. as per nursing report patient is more pleasant, has fair appetite, at the same time pt fixated on d/c, no agitation, no aggression. Patient tolerates medications well, no side effects observed or reported. Impression: schizoaffective disorder disorder, bipolar type, most recent episode depression Medication Change: Yes (ativan and cogentin added) Medical Record Reviewed: Yes (notes, reports, labs, vitals) Consults ordered or reviewed: Dr. Cristina consult appreciated last well pt failed, was seen by house physician Mental Status Examination - Cognitive Function Orientation: Person, Place, Situation, Time Memory: Intact Attention: Poor (some improvement) Concentration: Poor (some improvement) Association: Loose Fund of Knowledge: Poor - Mood Mood: Depressed ("I want to go home, you will never let me go..."), Anxious - Affect Affect: Constricted (and tearful) - Formal Thought Process Formal Thought Process: Delusions (some improvement), Paranoia (some improvement ), Loosening of associations, Other (confused at times) - Suicidal Ideation Suicidal Ideation: No - Homicidal Ideation Homicidal Ideation: No Goal/Treatment Plan - Goal/Treatment Plan Need for Continued Stay: Remain at risks for inpatient hospitalization, Severe depression anxiety, Discharge may exacerbated symptoms, Severe functional impairment Progress Toward Problem(s) and Goals/Treatment Plan: milieu/structure/supportive therapy no falls fall precaution will provide with the walker family meeting last week appreciated Amlodipine Besylate/Benazepril [Amlodipine-Benazepril 10-20 mg] 1 tab PO DAILY will be resumed by medical team Glimepiride 1 mg PO BID will be resumed by medical team Metformin HCl [Glucophage] 850 mg PO BID will be resumed by medical team Quetiapine Fumarate [Seroquel] 200mg am hs for psychosis and mood stabilization cogentin 0.5mg amhs for EPS ativan 0.25mg amhs for anxiety Celexa 30 mg daily for depression and anxiety Vit D2 50,000 units PO QWK will be resumed by medical team SW evaluation PRN meds will monitor closely collaterals from daughter appreciated. Estimated Date of D/C: 02/13/17 (we'll monitor closely)
[2017-02-13] MEDS: QUEtiapine 200 mg XR Tab PO SCH (09:43)
--- NOTE | 2017-02-13 13:19 | PN ---
DATE: 02/13/2017 The patient is a 71-year-old, seen and examined, seems to be upset, crying that she cannot go home. PHYSICAL EXAMINATION: VITAL SIGNS: She is afebrile, pulse 90, respirations 20, blood pressure 125/70. LUNGS: Bilateral fair airflow, no rhonchi or crackle. HEART: S1, S2 audible. ABDOMEN: Soft, nontender, no rebound, no guarding. NEUROLOGIC: The patient is awake and alert, communicative, ambulatory. Blood sugar is 186, seems to be running decent. ASSESSMENT: 1. Depression. 2. History of bipolar disorder. 3. Hypertension. 4. Hyperlipidemia. 5. Chronic degenerative disk disease. PLAN: At this point, medically, she is stable. We will continue her on glimepiride. She is on losa rtan 100 daily. She will be maintained on metformin and will reevaluate patient in a.m. Harry Cristina MD cc: [phone] TT: 02/13/2017 13:19:06 Confirmation # [id number] Dictation # [id number] en
--- NOTE | 2017-02-13 16:17 | PCM.PYCHPN ---
Psychiatric Progress Note - Psychiatric Progress Note Patient seen today, length of contact: 30min Patient Chief Complaint: "you will never let me go..." Problems Identified/Issues Discussed: Suicide/ homicide prevention, past psychiatric h/o, current psychiatric symptoms , medical problems, risk/benefits and alternatives of medications, medications compliance, coping strategies, substance abuse h/o, relapse prevention, importance of follow up with psychiatrist and therapist, discharge plan. Medical Problems: hypertension, dyslipidemia, arthritis Diagnostic Results: 02/01/17 14:35 02/01/17 14:35 Lab Results 02/03/17 12:04: POC Glucose (mg/dL) 120 H 02/03/17 07:53: POC Glucose (mg/dL) 112 H 02/02/17 21:05: POC Glucose (mg/dL) 244 H 02/02/17 15:56: POC Glucose (mg/dL) 168 H 02/02/17 11:54: POC Glucose (mg/dL) 270 H 02/01/17 16:10: Urine Opiates Screen Negative, Urine Methadone Screen Negative, Ur Barbiturates Screen Negative, Ur Phencyclidine Scrn Negative, Ur Amphetamines Screen Negative, U Benzodiazepines Scrn Negative, U Oth Cocaine Metabols Negative, U Cannabinoids Screen Negative 02/01/17 16:10: Urine Color Yellow, Urine Appearance Sl cloudy, Urine pH 5.5, Ur Specific [place] >= 1.030, Urine Protein Negative, Urine Glucose (UA) Negative, Urine Ketones Trace H, Urine Blood Small H, Urine Nitrate Negative, Urine Bilirubin Negative, Urine Urobilinogen 0.2, Ur Leukocyte Esterase Small H , Urine RBC 2 - 5, Urine WBC 2 - 5, Ur Epithelial Cells Many, Urine Bacteria Few 02/01/17 14:35: Alcohol, Quantitative < 10 02/01/17 14:35: Salicylates < 1 L, Acetaminophen < 10.0 L 02/01/17 14:35: Sodium 143, Potassium 4.0, Chloride 106, Carbon Dioxide 24, Anion Gap 17, BUN 17, Creatinine 0.9, Est GFR ( Amer) > 60, Est GFR (Non- Af Amer) > 60, Random Glucose 160 H, Calcium 9.6, Total Bilirubin 0.4, AST 18, ALT 23, Alkaline Phosphatase 66, Total Protein 6.8, Albumin 4.1, Globulin 2.7, Albumin/Globulin Ratio 1.5 02/01/17 14:35: WBC 7.2 D, RBC 4.41, Hgb 12.6, Hct 38.8, MCV 88.0, MCH 28.6, MCHC 32.5, RDW 14.2, Plt Count 331, MPV 9.7, Gran % 73.1 H, Lymph % (Auto) 19.9 L, [place] % (Auto) 5.7, Eos % (Auto) 1.0 L, Baso % (Auto) 0.3, Gran # 5.25, Lymph # 1.4, [place] # 0.4, Eos # 0.1, Baso # 0.02 Vital Signs Temp Pulse Resp BP Pulse Ox 02/03/17 07:41 97.9 F 81 20 142/76 02/02/17 16:24 72 161/82 H 02/02/17 07:38 97.5 F L 78 20 139/66 02/01/17 17:00 98 H 18 128/70 95 02/01/17 14:10 76 18 119/76 99 02/01/17 12:42 97.6 F 85 18 113/70 95 Temp Pulse Resp BP Pulse Ox 97.6 F 83 17 152/86 H 95 02/04/17 06:37 02/04/17 06:37 02/04/17 06:37 02/04/17 06:37 02/01/17 17:00 Abnormal Lab Results 02/03/17 02/03/17 02/04/17 16:24 21:49 07:22 POC Glucose (mg/dL) 212 H 166 H 108 02/04/17 11:30 POC Glucose (mg/dL) 209 H Temp Pulse Resp BP Pulse Ox 97.6 F 73 17 163/90 H 95 02/04/17 06:37 02/05/17 16:01 02/04/17 06:37 02/05/17 16:01 02/01/17 17:00 Temp Pulse Resp BP Pulse Ox 98.2 F 69 20 157/66 H 95 02/06/17 07:26 02/06/17 07:26 02/06/17 07:26 02/06/17 07:26 02/01/17 17:00 Temp Pulse Resp BP Pulse Ox 98.2 F 90 20 125/70 95 02/13/17 08:08 02/13/17 08:08 02/13/17 08:08 02/13/17 09:38 02/01/17 17:00 DSM 5 Symptoms Update: shortly pt has long h/o schizoaffective disorder, bipolar type, h/o multiple psych admissions, under EMERGENCY REGISTRAR Alvin at [facility], pt was noncompliant with meds for the past three weeks, decompensated, became paranoid, was not sleeping, had depressive symptoms, not able to function, was keep calling multiple times during the night time to her kids, pt had feeling that she is a burden for her family, wanted to . pt was seen next to the nursing station, pt again was intrusive and repetitive "you will never discharge me, I'll stay here forever, please let me go home", as per family meeting with patient's [id number], repetitiveness as very common for the patient, pt is doing better, SW contacted pt's daughter, pt seems to be at her baseline, will take pt back home tomorrow. no episodes of falling. as per nursing report patient is more pleasant, has fair appetite, at the same time pt fixated on d/c, no agitation, no aggression. Patient tolerates medications well, no side effects observed or reported. lips tremor is better, no rigidity, AIMS 0, no EPS. Impression: schizoaffective disorder disorder, bipolar type, most recent episode depression Medication Change: Yes (ativan and cogentin added) Medical Record Reviewed: Yes (notes, reports, labs, vitals) Consults ordered or reviewed: Dr. Cristina consult appreciated last well pt failed, was seen by house physician Medication Change: Yes (ativan and cogentin added) Medical Record Reviewed: Yes (notes, reports, labs, vitals) Consults ordered or reviewed: Dr. Cristina consult appreciated last week pt failed, was seen by house physician Mental Status Examination - Cognitive Function Orientation: Person, Place, Situation, Time Memory: Intact Attention: Poor (some improvement) Concentration: Poor (some improvement) Association: Loose (some improvement) Fund of Knowledge: Poor - Mood Mood: Depressed ("I feel better, let me go home"), Anxious - Affect Affect: Constricted (was not tearful today) - Speech Speech: Appropriate - Formal Thought Process Formal Thought Process: Delusions (some improvement), Paranoia (some improvement ), Other (intrusive at times as per family better) - Suicidal Ideation Suicidal Ideation: No - Homicidal Ideation Homicidal Ideation: No Goal/Treatment Plan - Goal/Treatment Plan Need for Continued Stay: Remain at risks for inpatient hospitalization, Severe depression anxiety, Discharge may exacerbated symptoms, Severe functional impairment Progress Toward Problem(s) and Goals/Treatment Plan: milieu/structure/supportive therapy no falls fall precaution will provide with the walker family meeting last week appreciated Amlodipine Besylate/Benazepril [Amlodipine-Benazepril 10-20 mg] 1 tab PO DAILY will be resumed by medical team Glimepiride 1 mg PO BID will be resumed by medical team Metformin HCl [Glucophage] 850 mg PO BID will be resumed by medical team Quetiapine Fumarate [Seroquel] 200mg am hs for psychosis and mood stabilization cogentin 0.5mg amhs for EPS ativan 0.25mg amhs for anxiety Celexa 30 mg daily for depression and anxiety Vit D2 50,000 units PO QWK will be resumed by medical team SW evaluation PRN meds will monitor closely collaterals from daughter appreciated. pt will be d/c tomorrow Estimated Date of D/C: 02/13/17 (we'll monitor closely)
[2017-02-14 07:36] VITALS: BP 171/76; PULSE 81; TEMP 97.4
[2017-02-14] MEDS: QUEtiapine 200 mg XR Tab PO SCH (08:51)
--- NOTE | 2017-02-14 10:05 | PCM.PYCHDC ---
Mental Status Examination - Mental Status Examination Orientation: Person, Place, Situation, Time Memory: Intact Mood: Anxious (chronic but much better) Speech: Appropriate Attention: WNL Concentration: WNL Association: WNL Fund of Knowledge: WNL Formal Thought Process: Paranoia (much better, but pt feels that this wirter will never discharge pt back home, pt was happy to be d/c), Perservation, Other (repetetiveness, ) Description of patient's judgement and insight: Pt has improved insight into mental and medical illness, pt was compliant with medications and unit rules and regulations, pt was going to groups, was calm, cooperative, socially appropriate, no behavioral incidents, no agitation, no aggression. Psychotic Thoughts and Behaviors: Pt denied v/a/t hallucinations, denied paranoid ideations, pt does not appear to be psychotic, and thought process is goal directed. Suicidal Ideation: No Current Homicidal Ideation?: No Plan: pt adamantly denied thoughts of harming self or others denied intent or plan. Discharge Summary - Discharge Note Reason for Hospitalization: pt was admitted for worsening of psychosis, depressive symptoms, possible suicidal ideation, pt was feeling like she is a burden for her family. Psychiatric History (includes Medical, Family, Personal Hx): see HPI Laboratory Data: Abnormal Lab Results 02/13/17 02/13/17 02/13/17 11:15 16:15 21:14 POC Glucose (mg/dL) 186 H 65 147 H 02/14/17 07:11 POC Glucose (mg/dL) 125 H 02/01/17 14:35 02/01/17 14:35 Lab Results 02/14/17 07:11: POC Glucose (mg/dL) 125 H 02/13/17 21:14: POC Glucose (mg/dL) 147 H 02/13/17 16:15: POC Glucose (mg/dL) 65 02/13/17 11:15: POC Glucose (mg/dL) 186 H 02/13/17 07:42: POC Glucose (mg/dL) 92 02/12/17 22:10: POC Glucose (mg/dL) 126 H 02/12/17 11:23: POC Glucose (mg/dL) 132 H 02/12/17 07:28: POC Glucose (mg/dL) 63 L 02/11/17 21:59: POC Glucose (mg/dL) 73 02/11/17 16:08: POC Glucose (mg/dL) 160 H 02/11/17 11:32: POC Glucose (mg/dL) 202 H 02/11/17 07:25: POC Glucose (mg/dL) 101 02/10/17 22:35: POC Glucose (mg/dL) 64 L 02/10/17 16:54: POC Glucose (mg/dL) 132 H 02/10/17 11:56: POC Glucose (mg/dL) 212 H 02/10/17 07:22: POC Glucose (mg/dL) 115 H 02/09/17 22:11: POC Glucose (mg/dL) 132 H 02/09/17 16:33: POC Glucose (mg/dL) 135 H 02/09/17 11:36: POC Glucose (mg/dL) 198 H 02/09/17 07:51: POC Glucose (mg/dL) 123 H 02/08/17 21:20: POC Glucose (mg/dL) 108 02/08/17 16:11: POC Glucose (mg/dL) 75 02/08/17 11:11: POC Glucose (mg/dL) 186 H 02/08/17 07:22: POC Glucose (mg/dL) 115 H 02/07/17 21:17: POC Glucose (mg/dL) 205 H 02/07/17 17:17: POC Glucose (mg/dL) 147 H 02/07/17 11:21: POC Glucose (mg/dL) 187 H 02/07/17 07:02: POC Glucose (mg/dL) 97 02/06/17 21:31: POC Glucose (mg/dL) 203 H 02/06/17 16:55: POC Glucose (mg/dL) 95 02/06/17 16:12: POC Glucose (mg/dL) 64 L 02/06/17 11:24: POC Glucose (mg/dL) 300 H 02/06/17 07:21: POC Glucose (mg/dL) 113 H 02/05/17 21:49: POC Glucose (mg/dL) 108 02/05/17 15:47: POC Glucose (mg/dL) 112 H 02/05/17 11:39: POC Glucose (mg/dL) 200 H 02/05/17 07:11: POC Glucose (mg/dL) 104 02/04/17 21:28: POC Glucose (mg/dL) 96 02/04/17 16:10: POC Glucose (mg/dL) 173 H 02/04/17 11:30: POC Glucose (mg/dL) 209 H 02/04/17 07:22: POC Glucose (mg/dL) 108 02/03/17 21:49: POC Glucose (mg/dL) 166 H 02/03/17 16:24: POC Glucose (mg/dL) 212 H 02/03/17 12:04: POC Glucose (mg/dL) 120 H 02/03/17 07:53: POC Glucose (mg/dL) 112 H 02/02/17 21:05: POC Glucose (mg/dL) 244 H 02/02/17 15:56: POC Glucose (mg/dL) 168 H 02/02/17 11:54: POC Glucose (mg/dL) 270 H 02/01/17 16:10: Urine Opiates Screen Negative, Urine Methadone Screen Negative, Ur Barbiturates Screen Negative, Ur Phencyclidine Scrn Negative, Ur Amphetamines Screen Negative, U Benzodiazepines Scrn Negative, U Oth Cocaine Metabols Negative, U Cannabinoids Screen Negative 02/01/17 16:10: Urine Color Yellow, Urine Appearance Sl cloudy, Urine pH 5.5, Ur Specific Val[place] >= 1.030, Urine Protein Negative, Urine Glucose (UA) Negative, Urine Ketones Trace H, Urine Blood Small H, Urine Nitrate Negative, Urine Bilirubin Negative, Urine Urobilinogen 0.2, Ur Leukocyte Esterase Small H , Urine RBC 2 - 5, Urine WBC 2 - 5, Ur Epithelial Cells Many, Urine Bacteria Few 02/01/17 14:35: Alcohol, Quantitative < 10 02/01/17 14:35: Salicylates < 1 L, Acetaminophen < 10.0 L 02/01/17 14:35: Sodium 143, Potassium 4.0, Chloride 106, Carbon Dioxide 24, Anion Gap 17, BUN 17, Creatinine 0.9, Est GFR ( Amer) > 60, Est GFR (Non- Af Amer) > 60, Random Glucose 160 H, Calcium 9.6, Total Bilirubin 0.4, AST 18, ALT 23, Alkaline Phosphatase 66, Total Protein 6.8, Albumin 4.1, Globulin 2.7, Albumin/Globulin Ratio 1.5 02/01/17 14:35: WBC 7.2 D, RBC 4.41, Hgb 12.6, Hct 38.8, MCV 88.0, MCH 28.6, MCHC 32.5, RDW 14.2, Plt Count 331, MPV 9.7, Gran % 73.1 H, Lymph % (Auto) 19.9 L, [place] % (Auto) 5.7, Eos % (Auto) 1.0 L, Baso % (Auto) 0.3, Gran # 5.25, Lymph # 1.4, [place] # 0.4, Eos # 0.1, Baso # 0.02 Vital Signs Temp Pulse Resp BP Pulse Ox 02/14/17 08:51 171/76 H 02/14/17 07:35 97.4 F L 81 20 171/76 H 02/13/17 16:11 88 130/74 02/13/17 09:38 125/70 02/13/17 08:08 98.2 F 90 20 125/70 02/12/17 09:20 138/74 02/12/17 07:47 98.4 F 96 H 20 138/74 02/11/17 14:00 120 H 134/85 02/11/17 10:18 133/72 02/11/17 07:47 98.2 F 87 20 133/72 02/10/17 14:00 91 H 141/78 02/10/17 09:51 138/62 02/10/17 06:40 97.7 F 76 17 138/62 02/09/17 16:20 91 H 125/72 02/09/17 08:57 154/67 H 02/09/17 07:38 98.2 F 80 20 154/67 H 02/08/17 16:06 74 165/84 H 02/08/17 08:56 153/83 H 02/08/17 07:46 99.1 F 105 H 20 153/83 H 02/07/17 16:12 81 163/76 H 02/07/17 13:14 168/89 H 02/07/17 07:33 98.4 F 90 20 168/89 H 02/06/17 16:00 70 150/70 02/06/17 07:26 98.2 F 69 20 157/66 H 02/05/17 16:01 73 163/90 H 02/04/17 16:00 84 128/87 02/04/17 06:37 97.6 F 83 17 152/86 H 02/03/17 16:00 94 H 149/86 02/03/17 07:41 97.9 F 81 20 142/76 02/02/17 16:24 72 161/82 H 02/02/17 07:38 97.5 F L 78 20 139/66 02/01/17 17:00 98 H 18 128/70 95 02/01/17 14:10 76 18 119/76 99 02/01/17 12:42 97.6 F 85 18 113/70 95 Consultations:: List each consultation separately and include: 1. Reason for request. 2. Findings. 3. Follow-up Consultations: Dr. Cristina consult appreciated two episodes of falling, was seen by medical team meds adjusted Summary of Hospital Course include:: 1. Description of specific treatment plan utilized for patients during their course of treatmen. 2. Summarize the time- course for resolution of acute symptoms and/or regressed behaviors. 3. Describe issues identified and worked on during hospitalization. 4. Describe medication utilized. 5. Describe medical problems identified and treated. 6. Reassessment of suicide risk Summary of Hospital Course: shortly pt has long h/o schizoaffective disorder, bipolar type, h/o multiple psych admissions, under [facility]ILL[facility] Esquivel at [facility], pt was noncompliant with meds for the past three weeks, decompensated, became paranoid, was not sleeping, had depressive symptoms, not able to function, was keep calling multiple times during the night time to her kids, pt had feeling that she is a burden for her family, wanted to . pt needs further evaluation and stabilization, meds resumption and titration. Meds confirmed by pharmacy [phone] thorazone 100mg po hs seorquel po hs metformin 850 po bid Amlodipine/benazepril 10-20 daily initially pt was seen at the tx team meeting, presented to be disorganized, paranoid, pressured/monotonic speech, pt said that "my family wants to lock me here, nobody wants me", pt initially refused to sign treatment plan "If I will sign treatment plan, I will sign my life away, you will keep me here forever"/ "one of the nurses laughed at my face said that I will here, but I want to have long life" (pt is paranoid, nobody was laughing at pt's face). pt was intrusive, was keep coming back to the tx team room, with the same statements "promise you will not keep me here forever". pt was provided with emotional support and empathic listening. pt was also crying, said that she feels like a "burden for my family, they do not want to be bothered", pt had passive wish to be as per PES "I wish I was , my famiy would be better off without me". pt denied feeling anxious denied hallucinations, but obviously thought process disorganized, pt is paranoid. pt denied using drugs and alcohol, denied smoking. past psych h/o: collaterals were obtained by medical residents: long h/o mental illness as per daughter Dasha [phone] h/o multiple psych admissions, most recent was 30 years ago, depression/psychosis, no suicidal attempts. medical h/o: HTN, dyslipidemia, arthritis, saw pt 02/01/17 14:35 02/01/17 14:35 Lab Results 02/02/17 11:54: POC Glucose (mg/dL) 270 H 02/01/17 16:10: Urine Opiates Screen Negative, Urine Methadone Screen Negative, Ur Barbiturates Screen Negative, Ur Phencyclidine Scrn Negative, Ur Amphetamines Screen Negative, U Benzodiazepines Scrn Negative, U Oth Cocaine Metabols Negative, U Cannabinoids Screen Negative 02/01/17 16:10: Urine Color Yellow, Urine Appearance Sl cloudy, Urine pH 5.5, Ur Specific Val[place] >= 1.030, Urine Protein Negative, Urine Glucose (UA) Negative, Urine Ketones Trace H, Urine Blood Small H, Urine Nitrate Negative, Urine Bilirubin Negative, Urine Urobilinogen 0.2, Ur Leukocyte Esterase Small H , Urine RBC 2 - 5, Urine WBC 2 - 5, Ur Epithelial Cells Many, Urine Bacteria Few 02/01/17 14:35: Alcohol, Quantitative < 10 02/01/17 14:35: Salicylates < 1 L, Acetaminophen < 10.0 L 02/01/17 14:35: Sodium 143, Potassium 4.0, Chloride 106, Carbon Dioxide 24, Anion Gap 17, BUN 17, Creatinine 0.9, Est GFR ( Amer) > 60, Est GFR (Non- Af Amer) > 60, Random Glucose 160 H, Calcium 9.6, Total Bilirubin 0.4, AST 18, ALT 23, Alkaline Phosphatase 66, Total Protein 6.8, Albumin 4.1, Globulin 2.7, Albumin/Globulin Ratio 1.5 02/01/17 14:35: WBC 7.2 D, RBC 4.41, Hgb 12.6, Hct 38.8, MCV 88.0, MCH 28.6, MCHC 32.5, RDW 14.2, Plt Count 331, MPV 9.7, Gran % 73.1 H, Lymph % (Auto) 19.9 L, [place] % (Auto) 5.7, Eos % (Auto) 1.0 L, Baso % (Auto) 0.3, Gran # 5.25, Lymph # 1.4, [place] # 0.4, Eos # 0.1, Baso # 0.02 Vital Signs Temp Pulse Resp BP Pulse Ox 02/02/17 07:38 97.5 F L 78 20 139/66 02/01/17 17:00 98 H 18 128/70 95 02/01/17 14:10 76 18 119/76 99 02/01/17 12:42 97.6 F 85 18 113/70 95 pt was stabilized on the following med: Quetiapine Fumarate [Seroquel] 200mg am and hs for psychosis and mood stabilization cogentin 0.5mg amhs for EPS ativan 0.25mg amhs for anxiety Celexa 30 mg daily for depression and anxiety pt was on thorazine it was discontinued because pt should not be on two antipsychotic meds pt was seen by medical team pt tolerated meds well, no side effects observed or reported, AIMS 0, no EPS. last week family meeting took place with pt's daughter in law, see notes for more detailed information as per daughter in law pt improved, repetitiveness is very common for the pt, was in agreement with treatment and d/c plan, discussed importance of compliance with meds and f/u appt, family wants pt to be f/u with office +therapy once a week. today pt's daughter in law picker and packer pt back home, was willing to accept pt back. Over the course of this hospitalization pt was attending groups, pt also had medication management, had therapeutic milieu. Overall pt improved significantly, pt's affect became brighter, pt was less depressed, has realistic future oriented plans "I will take my medications, I will follow up with psychiatrist", pt less psychotic, has chronic delusions that nobody likes her, pt was socially appropriate, no behavioral issues, pts insight improved as well and soon pt deemed to be ready for discharge. At the time of the discharge pt denied been depressed, denied thoughts of harming self or others, denied psychotic symptoms, and pt does not appeared to be psychotic, denied been anxious, was considered to pose no threat to self or others, will be following up at 's office and therapist, as well as visiting nurse , information about follow up appointment, time and address provided to the pt, it is patient responsibility to follow up with outpatient clinic, PMD as well as specialists (see SW note for more detailed information). In case pt will need to obtain results of studies pending at discharge pt was provided with contact information of Psychiatric Inpatient unit [phone] as well as Medical Record Department [phone]. pt was provided with prescriptions for all of medications (please see medication reconciliation form), prescriptions were faxed over to [facility] [phone] Pt was educated about safety plan in case of worsening of symptoms or in case of suicidal or homicidal ideation call 911 or go to the nearest ER, also was educated to take meds as prescribed and stay away from drugs, pt verbalized understanding. - Diagnosis (1) Schizoaffective disorder, depressive type Current Visit: Yes Status: Chronic - Final Diagnosis (DSM 5) Condition upon Discharge: IMPROVED Disposition: HOME/ ROUTINE Follow-up Treatment Plan: At the time of the discharge pt denied been depressed, denied thoughts of harming self or others, denied psychotic symptoms, and pt does not appeared to be psychotic, denied been anxious, was considered to pose no threat to self or others, will be following up at 's office and therapist, as well as visiting nurse , information about follow up appointment, time and address provided to the pt, it is patient responsibility to follow up with outpatient clinic, PMD as well as specialists (see SW note for more detailed information). In case pt will need to obtain results of studies pending at discharge pt was provided with contact information of Psychiatric Inpatient unit [phone] as well as Medical Record Department [phone]. pt was provided with prescriptions for all of medications (please see medication reconciliation form), prescriptions were faxed over to [facility] [phone] Pt was educated about safety plan in case of worsening of symptoms or in case of suicidal or homicidal ideation call 911 or go to the nearest ER, also was educated to take meds as prescribed and stay away from drugs, pt verbalized understanding. Prescriptions/Medication Reconciliation: amLODIPine [Norvasc] 5 mg PO DAILY #14 tab Benztropine [Cogentin] 0.5 mg PO AMHS #30 tab Citalopram Hydrobromide [Celexa] 10 mg PO DAILY #14 tab Citalopram Hydrobromide [Celexa] 20 mg PO DAILY #14 tablet Glimepiride [amaRYL] 2 mg PO BID #30 tab LORazepam [Ativan] 0.25 mg PO BID #14 tab Losartan [Cozaar] 100 mg PO DAILY #14 tab metFORMIN [glucOPHAGE] 850 mg PO BID #30 tab QUEtiapine [Seroquel XR] 200 mg PO DAILY #14 ter Quetiapine Fumarate [Seroquel] 200 mg PO HS #14 tab SITagliptin [Januvia] 50 mg PO DAILY #14 tab Zaleplon [Sonata] 5 mg PO HS PRN #14 cap PRN Reason: Insomnia - Smoking Cessation Smoking Cessation Medication prescribed: No Reason for not providing: pt does not smoke - Antipsychotic Medications Pt discharged on 2 or more routine antipsychotic medications: No
== END 2017-02-14 10:09 | disposition home or self-care (01) | DRG 885 ==
LOC: ED 12:07 → ERH 17:48 → PSYC 18:43
PROVIDERS: ADMIT Psychiatry & Neurology Psychiatry; ATTEND Psychiatry & Neurology Psychiatry
PROC: GZ3ZZZZ Medication Management (ICD-10-PCS; principal; 2017-02-01)
DX: F25.1 Schizoaffective disorder, depressive type (principal); F25.0 Schizoaffective disorder, bipolar type; F22 Delusional disorders; Z91.14 Patient's other noncompliance with medication regimen; E11.9 Type 2 diabetes mellitus without complications; I10 Essential (primary) hypertension; M19.90 Unspecified osteoarthritis, unspecified site; E78.5 Hyperlipidemia, unspecified; F41.9 Anxiety disorder, unspecified; S80.02XA Contusion of left knee, initial encounter; S50.02XA Contusion of left elbow, initial encounter; W01.0XXA Fall on same level from slipping, tripping and stumbling without subsequent striking against object, initial encounter; Y93.9 Activity, unspecified; Y92.238 Other place in hospital as the place of occurrence of the external cause; Z79.84 Long term (current) use of oral hypoglycemic drugs; Y99.9 Unspecified external cause status

== ENCOUNTER 2018-02-11 12:48 | Inpatient (IN) | payer MEDICARE, MEDICAID ==
[2018-02-11 12:49] VITALS: BMI 28.1
--- NOTE | 2018-02-11 13:17 | ED PDOC ---
Arrival/HPI - General Chief Complaint: Altered Mental Status Time Seen by Provider: 02/11/18 12:51 Historian: Patient - History of Present Illness Narrative History of Present Illness (Text): 02/11/18 13:10 72 year old female, whose past medical history includes Schizophrenia and diabetes, who presents to the emergency department s/p fall. Patient's son states he found patient on the floor. Family is unsure how long patient was on the floor. Patient's family notes patient is non-compliant with medications. Patient denies any fevers, chills, chest pain, shortness of breath, abdominal pain, nausea, vomiting, diarrhea, back pain, neck pain, headache, dizziness, or any other complaint. Full HPI and ROS limited due to patient 's AMS. Time/Duration: Prior to Arrival Symptom Onset: Sudden Symptom Course: Unchanged Activities at Onset: Light Context: Home Past Medical History - Provider Review Nursing Documentation Reviewed: Yes - Infectious Disease Hx of Infectious Diseases: None - Musculoskeletal/Rheumatological Hx Arthritis: Yes - Psychiatric Hx Schizophrenia: Yes Hx Substance Use: No Family/Social History - Physician Review Nursing Documentation Reviewed: Yes Family/Social History: Unknown Family HX Smoking Status: Never Smoked Hx Alcohol Use: No Hx Substance Use: No Allergies/Home Meds Allergies/Adverse Reactions: Allergies No Known Allergies Allergy (Unverified 02/11/18 12:49) Home Medications: Home Meds Medication Instructions Recorded Confirmed LORazepam [Ativan] 0.5 mg PO BID 02/11/18 02/11/18 QUEtiapine [Seroquel XR] 100 mg PO HS 02/11/18 02/11/18 chlorproMAZINE [Thorazine] 1 tab PO BID 02/11/18 02/11/18 Review of Systems - Review of Systems Systems not reviewed;Unavailable: Altered Mental Status Physical Exam Vital Signs Temp Pulse Resp BP Pulse Ox 02/11/18 13:16 98.9 F 100 H 18 143/89 94 L Temperature: Afebrile Blood Pressure: Normal Pulse: Tachycardic Respiratory Rate: Normal Appearance: Positive for: Non-Toxic, Comfortable, Ill-Appearing Pain Distress: Mild Mental Status: Positive for: Confused (Alert Awake and oriented x2) Finger Stick Blood Glucose: 280 - Systems Exam Head: Present: Atraumatic, Normocephalic Pupils: Present: PERRL Extroacular Muscles: Present: EOMI Conjunctiva: Present: Normal Mouth: Present: Dry Nose (External): Present: Atraumatic Neck: Present: Normal Range of Motion. No: Meningeal Signs, MIDLINE TENDERNESS , Paraspinal Tenderness Respiratory/Chest: Present: Clear to Auscultation, Good Air Exchange. No: Respiratory Distress, Accessory Muscle Use Cardiovascular: Present: Regular Rate and Rhythm, Normal S1, S2. No: Murmurs Abdomen: No: Tenderness, Distention, Peritoneal Signs Back: Present: Normal Inspection. No: Midline Tenderness Upper Extremity: Present: Normal Inspection. No: Cyanosis, Edema Lower Extremity: Present: Tenderness (Pain with movement Left knee and left hip) . No: Edema, CALF TENDERNESS Neurological: Present: GCS=15, CN II-XII Intact, Speech Normal, Motor Func Grossly Intact, Normal Sensory Function Skin: Present: Warm, Dry, Pale. No: Rashes Psychiatric: Present: Alert. No: Intoxicated, Lethargic Medical Decision Making ED Course and Treatment: 02/11/18 13:19 Impression: 72 year old female, who presents to the emergency department s/p fall and AMS. r/o Electrolyte abnormality, r/o Dehydration, r/o possible head trauma r/o ICH; left hip pain/knee pain r/o fracture; Noncompliant with psych medications and most of her other meds. Differential Diagnosis: Syncope vs. Mechanical Fall Plan: -- C-Spine CT -- Head CT -- EKG -- Labs -- Chest X-ray -- Blood Culture -- Urine Culture -- Xray Lft Hip -- Xray Lft Knee -- UA -- Reassess and disposition Progress Notes: 02/11/18 13:23 EKG: Sinus Tachy at 105bpm with no ST elevations; Q waves III, aVF 02/11/18 14:01 Code Sepsis called on patient due to elevated WBC, HR and elev LA. Patient treated with Rocephine for suspected UTI. 02/11/18 15:58 Labs reviewed. UA negative. CK elevated which is most likely why WBC and LA are elevated. Patient also appears dehydrated. CT head and Cervical Spine reviewed. Case discussed with Dr. Cristina who will admit under her service for Syncope, Rhabdomyolysis and Altered Mental Status. - Lab Interpretations Lab Results: 02/11/18 12:58 02/11/18 12:58 Lab Results 02/11/18 15:17: POC Glucose (mg/dL) 368 H 02/11/18 15:00: Urine Opiates Screen Negative, Urine Methadone Screen Negative, Ur Barbiturates Screen Negative, Ur Phencyclidine Scrn Negative, Ur Amphetamines Screen Negative, U Benzodiazepines Scrn Negative, U Oth Cocaine Metabols Negative, U Cannabinoids Screen Negative 02/11/18 15:00: Urine Color Yellow, Urine Appearance Clear, Urine pH 6.0, Ur Specific Hudgins 1.025, Urine Protein Trace H, Urine Glucose (UA) >=1000, Urine Ketones 15 H, Urine Blood Moderate H, Urine Nitrate Negative, Urine Bilirubin Negative, Urine Urobilinogen 0.2, Ur Leukocyte Esterase Negative, Urine RBC 0 - 2, Urine WBC Negative, Ur Epithelial Cells None 02/11/18 13:40: Salicylates < 1 L, Acetaminophen < 10.0 L 02/11/18 13:30: pO2 45, VBG pH 7.31 L, VBG pCO2 38.0 L, VBG HCO3 19.1 L, VBG Total CO2 20.3 L, VBG O2 Sat (Calc) 85.9 H, VBG Base Excess -6.6 L, VBG Potassium 4.2, Glucose 378 H, Lactate 3.3 H, FiO2 21.0, Sodium 137.0, Chloride 104.0, Venous Blood Potassium 4.2 02/11/18 12:58: Alcohol, Quantitative < 10 02/11/18 12:58: Sodium 140, Potassium 4.2, Chloride 104, Carbon Dioxide 20 L, Anion Gap 21 H, BUN 23 H, Creatinine 0.9, Est GFR ( Amer) > 60, Est GFR ( Non-Af Amer) > 60, Random Glucose 345 H* D, Calcium 9.7, Phosphorus 3.1, Magnesium 1.4 L, Total Bilirubin 0.7, AST 74 H, ALT 26, Alkaline Phosphatase 92 , Lactate Dehydrogenase 743 H, Total Creatine Kinase 2760 H, CK-MB (CK-2) 29.7 H , CK-MB (CK-2) % 1.1 L, Troponin I < 0.01, Total Protein 7.6, Albumin 4.6, Globulin 3.0, Albumin/Globulin Ratio 1.5 02/11/18 12:58: PT 11.5, INR 1.00, APTT 23.2 L 02/11/18 12:58: WBC 11.3 H D, RBC 4.32, Hgb 12.3, Hct 35.8 L, MCV 82.9, MCH 28.5 , MCHC 34.4, RDW 13.6, Plt Count 330, MPV 9.0, Gran % 89.3 H, Lymph % (Auto) 7.1 L, Dupage % (Auto) 3.5, Eos % (Auto) 0.0 L, Baso % (Auto) 0.1, Gran # 10.07 H , Lymph # (Auto) 0.8 L, Dupage # (Auto) 0.4, Eos # (Auto) 0.0, Baso # (Auto) 0.01 - RAD Interpretation Radiology Orders: 02/11/18 13:05 HEAD W/O CONTRAST [CT] Stat CHEST PORTABLE [RAD] Stat 02/11/18 13:06 CERVICAL SPINE W/O CONTRAST [CT] Stat Hip Left [HIP MIN 2V W/ PELVIS LT] [RAD] Stat 02/11/18 13:07 KNEE LEFT 2 VIEWS (AP & LAT) [RAD] Stat - Medication Orders Current Medication Orders: Sodium Chloride (Sodium Chloride 0.9%) 1,000 mls @ 100 mls/hr IV .Q10H KAYLIN Last Admin: 02/11/18 15:46 Dose: 100 mls/hr eMAR Start Stop Document 02/11/18 15:46 [email or web address] (Rec: 02/11/18 15:46 [email or web address] [facility] [id number]) Intravenous Solution Start Date 02/11/18 Start Time 15:46 End Date 02/11/18 Discontinued Medications Sodium Chloride (Sodium Chloride 0.9%) 1,000 mls @ 999 mls/hr IV .Q1H1M STA Stop: 02/11/18 14:43 Last Admin: 02/11/18 13:55 Dose: 999 mls/hr eMAR Start Stop Document 02/11/18 13:55 [email or web address] (Rec: 02/11/18 13:55 [email or web address] [facility] [id number]) Intravenous Solution Start Date 02/11/18 Start Time 13:55 End Date 02/11/18 Ceftriaxone Sodium (Rocephin 1 Gram Ivpb) 1 gm in 100 mls @ 200 mls/hr IVPB STAT STA PRN Reason: Protocol Stop: 02/11/18 14:31 Last Admin: 02/11/18 14:33 Dose: 200 mls/hr eMAR Start Stop Document 02/11/18 14:33 [email or web address] (Rec: 02/11/18 14:35 [email or web address] [facility] [place] [id number]) Intravenous Solution Start Date 02/11/18 Start Time 14:35 End Date 02/11/18 Insulin Human Regular (Humulin R) 5 units SC STAT STA Stop: 02/11/18 15:19 Last Admin: 02/11/18 15:46 Dose: 5 units MAR Blood Glucose Document 02/11/18 15:46 [email or web address] (Rec: 02/11/18 15:46 [email or web address] [facility]- [id number]) Blood Glucose Finger Stick Blood Glucose (70-120) 365 Subcutaneous Administrations Document 02/11/18 15:46 [email or web address] (Rec: 02/11/18 15:46 [email or web address] [facility]- [id number]) Injection Site MAR Injection Site Left Abdomen Charges for Administration # of Subcutaneous Administrations 1 Magnesium Oxide (Mag-Ox) 400 mg PO STAT STA Stop: 02/11/18 13:45 Last Admin: 02/11/18 14:35 Dose: 400 mg - Scribe Statement The provider has reviewed the documentation as recorded by the Scribartemio Hanley All medical record entries made by the Regina were at my direction and personally dictated by me. I have reviewed the chart and agree that the record accurately reflects my personal performance of the history, physical exam, medical decision making, and the department course for this patient. I have also personally directed, reviewed, and agree with the discharge instructions and disposition. Disposition/Present on Arrival - Present on Arrival Any Indicators Present on Arrival: No History of DVT/PE: No History of Uncontrolled Diabetes: No Urinary Catheter: No History of Decub. Ulcer: No History Surgical Site Infection Following: None - Disposition Have Diagnosis and Disposition been Completed?: Yes Diagnosis: Altered mental status, Rhabdomyolysis, Syncope Disposition: HOSPITALIZED Disposition Time: 15:28 Patient Plan: Admission Patient Problems: Current Active Problems Problem Status Onset Altered mental status Acute Rhabdomyolysis Acute Condition: FAIR Discharge Instructions (ExitCare): Syncope (ED) Referrals: Harry Cristina MD [Primary Care Provider] - Follow up with primary Forms: Allen Tours (Frisian)
[2018-02-11 13:20] LABS: BASO # 0.01 K/mm3 (0.0-2.0); BASO % 0.1 % (0.0-3.0); GRAN # 10.07 (1.4-6.5); GRAN % 89.3 % (50.0-68.0); HEMOGLOBIN 12.3 g/dL (12.0-16.0); LYMPH # 0.8 (1.2-3.4); LYMPH % 7.1 % (22.0-35.0); MEAN CELL VOLUME 82.9 fl (80.0-105.0); MEAN CORPUSCULAR HEMOGLOBIN 28.5 pg (25.0-35.0); MEAN CORPUSCULAR HGB CONC 34.4 g/dl (31.0-37.0); MONO # 0.4 (0.1-0.6); MONO % 3.5 % (1.0-6.0); RBC 4.32 10^6/uL (3.5-6.1); RED CELL DISTRIBUTION WIDTH 13.6 % (11.5-14.5); WHITE BLOOD COUNT 11.3 10^3/ul (4.5-11.0)
[2018-02-11 13:31] LABS: PARTIAL THROMBOPLASTIN TIME 23.2 Seconds (25.1-36.5); PROTHROMBIN TIME 11.5 SECONDS (9.4-12.5)
[2018-02-11 13:40] LABS: ALB/GLOB RATIO 1.5 (1.1-1.8); ALBUMIN 4.6 g/dL (3.0-4.8); ALT/SGPT 26 U/L (7-56); AST/SGOT 74 U/L (14-36); BLOOD UREA NITROGEN 23 mg/dL (7-21); CALCIUM 9.7 mg/dL (8.4-10.5); GFR AFRICAN-AMERICAN > 60; GFR NON-AFRICAN AMERICAN > 60
[2018-02-11 13:41] LABS: TROPONIN I < 0.01 ng/mL
[2018-02-11] MEDS ORDERED: Sodium Chloride 0.9% 1,000 ML IV STA (13:43)
[2018-02-11] MEDS ORDERED: Magnesium Oxide 400 mg Tab UD PO STA (13:44)
[2018-02-11 13:51] LABS: ACETAMINOPHEN < 10.0 ug/ml (10.0-20.0); SALICYLATE < 1 mg/dL (2.0-20.0)
[2018-02-11 13:54] LABS: VENOUS BLOOD GAS BASE EXCESS -6.6 mmol/L (0.0-2.0); VENOUS BLOOD GAS PO2 45 mm/Hg (30-55); VENOUS BLOOD PH 7.31 (7.32-7.43)
[2018-02-11] MEDS ORDERED: cefTRIAXone 1 gm 1 GM/100 ML BAG IVPB STA (14:02)
[2018-02-11 14:08] LABS: CK MB% 1.1 % (2.5-3.0); CK-MB 29.7 ng/mL (0.0-3.6)
[2018-02-11 15:14] LABS: URINE BILIRUBIN NEGATIVE (NEGATIVE); URINE BLOOD MODERATE (NEGATIVE); URINE GLUCOSE (UA) >=1000 mg/dL (NEGATIVE); URINE LEUKOCYTE ESTERASE NEGATIVE Leu/uL (NEGATIVE); URINE PROTEIN TRACE mg/dL (<30 mg/dL); URINE UROBILINOGEN 0.2 E.U./dL (<1 E.U./dL)
[2018-02-11 15:16] LABS: URINE APPEARANCE CLEAR (CLEAR); URINE COLOR YELLOW (YELLOW)
[2018-02-11] MEDS ORDERED: Insulin Regular 1 UNITS/0.01 ML ML SC STA (15:18)
[2018-02-11 15:23] LABS: URINE RBC 0 - 2 /hpf (0-2); URINE WBC NEGATIVE /hpf (0-6)
[2018-02-11 15:35] LABS: BARBITURATES, UR NEGATIVE (NEGATIVE); BENZODIAZEPINES, UR NEGATIVE (NEGATIVE); OPIATES, UR NEGATIVE (NEGATIVE); PHENCYCLIDINE, UR NEGATIVE (NEGATIVE)
[2018-02-11] MEDS: Sodium Chloride 0.9% 1,000 ML IV SCH (15:46)
[2018-02-11 17:13] LABS: VENOUS BLOOD GAS BASE EXCESS -2.5 mmol/L (0.0-2.0); VENOUS BLOOD GAS PO2 198 mm/Hg (30-55); VENOUS BLOOD PH 7.37 (7.32-7.43)
--- NOTE | 2018-02-11 17:33 | PCM.SEPTIC ---
Sepsis Progress Note - Reassessment Type Date of Evaluation: 02/11/18 Time of Evaluation: 17:32 Reassessment Type: Non-invasive reassessment - Non Invasive Reassessment Were the most recent vital sign reviewed: Yes Vital Sign (Latest): Temp Pulse Resp BP Pulse Ox 98.2 F 79 19 155/81 H 97 02/11/18 17:08 02/11/18 17:08 02/11/18 17:08 02/11/18 16:30 02/11/18 17:08 Cardiovascular: Yes: Regular Rate, Rhythm Respiratory: Yes: Normal Breath Sounds Capillary Refill: Normal (Less than 2 sec) Pulses: Normal Radial, Normal Dorsalis Pedis, Normal Posterior Tibialis Skin: Normal Color, Warm, Dry
[2018-02-11] MEDS ORDERED: Pneumococcal 23-Valent Vaccine IM ONE (21:18)
[2018-02-11] MEDS: QUEtiapine 200 mg XR Tab PO SCH (22:49)
[2018-02-12] MEDS: Sodium Chloride 0.9% 1,000 ML IV SCH ×2 (05:43→11:30)
--- NOTE | 2018-02-12 08:19 | HP ---
HISTORY OF PRESENT ILLNESS: The patient is a 72-year-old, who lives by herself with her home health aide who did not come this morning, and patient's son was checking up on her, and when she did not pickle pumper the phone, he went to visit her and found her on the floor, so he called ambulance. The patient did not lose consciousness; however, she was unable to get up. They did not know how long she was on the floor. There is no history of nausea or vomiting. No diarrhea. No history of fever, no chills. According to son, she might not have taken her medication last night. There is no history of diarrhea. Her oral intake is variable. Blood sugar fluctuates. PAST MEDICAL HISTORY: Significant for, 1. Schizophrenia and she is on bunch of medication for that. 2. Non-insulin dependent diabetes. 3. Hypertension. 4. Hyperlipidemia. ALLERGIES: SHE IS NOT ALLERGIC TO ANY MEDICATION. MEDICATIONS AT HOME: She is on amlodipine 5 mg daily, Ativan 0.5 twice a day, metformin 850 twice a day, Seroquel 100 mg at bedtime, Thorazine 25 twice a day, Celexa 20 mg daily, losartan 100 mg daily. SOCIAL HISTORY: She lives by herself with home health aide. Denies smoking, drinking or alcohol use. PHYSICAL EXAMINATION GENERAL: She is awake and alert. Able to communicate. Answers simple questions. VITAL SIGNS: She is afebrile, pulse 79, respiration 19, blood pressure 155/81. LUNGS: Bilateral fair flow. No rhonchi or crackle. HEART: S1 and S2 audible. ABDOMEN: Soft, nontender. No rebound. No guarding. NEUROLOGICAL: She is awake and alert, but forgetful. EXTREMITIES: Bilateral leg, no edema. She does have limited range of motion because of her previous history of arthritis and chronic back pain. LABORATORY DATA: WBC 11.3, hemoglobin 12.3, hematocrit 35.8, platelet of 330. PT 11.5, INR 1. Chemistries: Sodium 140, potassium 4.2, chloride 20, CO2 of 23, BUN . Blood sugar of 368. LFTs are within normal limit. LDH is 743, CPK is 2760, MB is 29.7. Urine shows moderate blood cell. Urine drug screen is negative. CT scan of the head, hip, pelvis, knees and chest done; they are all pending. ASSESSMENT: 1. Status post fall. 2. Rhabdomyolysis. 3. Dehydration. 4. History of schizophrenia. 5. Hypertension. 6. Non-insulin dependent diabetes. 7. Hyperlipidemia. PLAN: We will resume her medication. Continue her on IV fluid. Blood culture and urine culture are sent. We will monitor blood sugar. Out of bed to chair. Physical therapy evaluation has been requested. We will follow up the patient. Harry Cristina MD
[2018-02-12 08:58] LABS: BASO # 0.01 K/mm3 (0.0-2.0); BASO % 0.1 % (0.0-3.0); EOS # 0.1 (0.0-0.7); EOS % 1.3 % (1.5-5.0); GRAN # 5.88 (1.4-6.5); HEMOGLOBIN 11.1 g/dL (12.0-16.0); LYMPH # 1.8 (1.2-3.4); LYMPH % 20.8 % (22.0-35.0); MEAN CELL VOLUME 83.4 fl (80.0-105.0); MEAN CORPUSCULAR HGB CONC 33.5 g/dl (31.0-37.0); MEAN PLATELET VOLUME 8.7 fl (7.0-11.0); MONO # 0.8 (0.1-0.6); MONO % 8.8 % (1.0-6.0); RBC 3.97 10^6/uL (3.5-6.1); WHITE BLOOD COUNT 8.5 10^3/ul (4.5-11.0)
[2018-02-12 09:05] LABS: ALB/GLOB RATIO 1.4 (1.1-1.8); ALBUMIN 3.7 g/dL (3.0-4.8); ALT/SGPT 36 U/L (7-56); AST/SGOT 50 U/L (14-36); BLOOD UREA NITROGEN 18 mg/dL (7-21); CALCIUM 8.9 mg/dL (8.4-10.5); GFR AFRICAN-AMERICAN > 60; GFR NON-AFRICAN AMERICAN > 60
[2018-02-12 09:19] LABS: CK MB% 0.6 % (2.5-3.0); CK-MB 6.8 ng/mL (0.0-3.6)
[2018-02-12] MEDS: Magnesium Oxide 400 mg Tab UD PO SCH ×2 (11:49→18:51)
--- NOTE | 2018-02-12 13:01 | RAD ---
HISTORY: altered mental status COMPARISON: No prior. FINDINGS: LUNGS: No active pulmonary disease. PLEURA: No significant pleural effusion identified, no pneumothorax apparent. CARDIOVASCULAR: Cardiomegaly. No evidence of acute, significant cardiovascular disease. OSSEOUS STRUCTURES: No significant abnormalities. VISUALIZED UPPER ABDOMEN: Normal. OTHER FINDINGS: None. IMPRESSION: No active disease.
--- NOTE | 2018-02-12 13:02 | RAD ---
PROCEDURE: Left Knee Radiographs. HISTORY: Pain. COMPARISON: None. FINDINGS: BONES: Normal. No fracture. JOINTS: Degenerative changes are seen in the patellofemoral joint. There is a large osteophyte extending superiorly. Degenerative changes are also seen in the medial compartment with joint space narrowing JOINT EFFUSION: None. OTHER FINDINGS: None. IMPRESSION: Degenerative changes are seen in the patellofemoral joint. There is a large osteophyte extending superiorly. Degenerative changes are also seen in the medial compartment with joint space narrowing
--- NOTE | 2018-02-12 13:03 | RAD ---
PROCEDURE: Left Hip X-ray Radiographs. HISTORY: fall r/o fx COMPARISON: None. FINDINGS: BONES: Normal. No fracture. JOINTS: Symmetrical moderate degenerative change. SOFT TISSUES: Normal. OTHER FINDINGS: None. IMPRESSION: No acute findings related to/accounting for the clinical presentation. Concordant results with the preliminary interpretation rendered by the emergency department physician procedure.
--- NOTE | 2018-02-12 13:06 | CT ---
PROCEDURE: CT HEAD WITHOUT CONTRAST. HISTORY: altered mental status COMPARISON: None available. TECHNIQUE: Axial computed tomography images were obtained through the head/brain without intravenous contrast. Radiation dose: Total exam DLP = 960 mGy-cm. This CT exam was performed using one or more of the following dose reduction techniques: Automated exposure control, adjustment of the mA and/or kV according to patient size, and/or use of iterative reconstruction technique. FINDINGS: HEMORRHAGE: No intracranial hemorrhage. BRAIN: There is a large calcified mass in the left the anterior cranial fossa measuring 34 mm wide by 21 mm AP x 32 mm in height. This is consistent with a meningioma VENTRICLES: Unremarkable. No hydrocephalus. CALVARIUM: Unremarkable. PARANASAL SINUSES: Unremarkable as visualized. No significant inflammatory changes. MASTOID AIR CELLS: Unremarkable as visualized. No inflammatory changes. OTHER FINDINGS: None. IMPRESSION: There is a large calcified mass in the left the anterior cranial fossa measuring 34 mm wide by 21 mm AP x 32 mm in height. This is consistent with a meningioma
--- NOTE | 2018-02-12 13:13 | CT ---
PROCEDURE: CT Cervical Spine without contrast HISTORY: Fall, rule out fracture COMPARISON: None available. TECHNIQUE: Axial computed tomography images were obtained of the cervical spine without the use of intravenous contrast. Coronal and sagittal reformatted images were created and reviewed. Radiation dose: Total exam DLP = 730 mGy-cm. This CT exam was performed using one or more of the following dose reduction techniques: Automated exposure control, adjustment of the mA and/or kV according to patient size, and/or use of iterative reconstruction technique. FINDINGS: VERTEBRAE: No fracture. Normal alignment. No destructive bony lesion. DISCS/SPINAL CANAL/NEURAL FORAMINA: No significant central canal or neural foraminal stenosis. There is severe disc degeneration at C6-7 with loss of disc height bony sclerosis and osteophyte formation. No significant stenosis at this level. Disc degeneration is also seen at C4-5 and C5-6 PARASPINAL SOFT TISSUES: Unremarkable. OTHER FINDINGS: None. IMPRESSION: No acute findings
--- NOTE | 2018-02-12 13:27 | CON ---
DATE: 02/12/2018 HISTORY OF PRESENT ILLNESS: In short, the patient is a 72-year-old female, long history of schizophrenia. The patient has hospitalization to the Psychiatric Inpatient Unit, most recently was about a year ago, same presentation, the patient was confused and psychotic. At this time, the patient was brought by the family status post fall as well as change in mental status. Psych consult was called because the patient has history of mental illness as well as the patient is on psychotropic medication as well as change in mental status. The patient was seen and examined. The patient is very familiar to this tag writer from the previous admission to [facility] Psych [facility]patient Unit. The patient presented to be alert, somewhat confused. The patient appears to be paranoid and disorganized, but not agitated. The patient said that she is afraid that she will never go back home. The patient wants to go back home after discharge. The patient said that she is compliant with the medications. The patient reported that she lives with the family. The patient reported that her son is her power of compliance attorney and her [id number], Yesi as well. The patient gave permission to talk to them. This tag writer called the patient's [id number], Ysei, phone number is [phone]. As per Yesi, the patient was noncompliant with the medications for at least 2 months. For the past 2 weeks, the patient is more confused, keep calling in the middle of the night and asking Yesi to bring kids downstairs. There are no kids in the house. The patient also is very confused, taking medications sporadically. The patient was going to Dr. Karlos Cota's office, but unfortunately the patient is not compliant with the medication history of being seen by Dr. Ambrosio in the past, was relatively stable on Seroquel as well as Thorazine in the past. Going back to the patient's presentation, vital signs seems to be stable. Temperature 98, pulse is 82, respirations 20, oxygen saturation is 97, blood pressure is 153/72. Medications reviewed. Tylenol, Norvasc, Thorazine 50 mg twice a day scheduled, but we will give a.m. and at bedtime. The patient also is on Celexa, which was given 20 mg, but considering the fact that the patient was not compliant with the medication, I will start with a lower dose of 10 mg at the nighttime. Ativan 0.5 mg twice a day scheduled, but the patient got IV push of Ativan for anxiety. The patient is on Cozaar, magnesium oxide, Glucophage, Zofran, Seroquel 100 mg at the nighttime. Labs reviewed. WBC cells were elevated yesterday. Today is going down. Chemistry reviewed. CK 1086, chloride 110. Toxicology is negative for any substances. Urine blood positive and protein trace. Microbiology reviewed. MENTAL STATUS EXAMINATION: The patient presented to be alert. The patient remembered this tag writer, but does not remember her name. The patient appears to be confused, somewhat anxious. Intermittent eye contact. Speech was soft. At times, the patient is mumbling. Mood described as fine, I am afraid that I will not go back home, promise to let me go back home. Thought process circumstantial, tangential. Thought content, the patient appears to be disorganized, paranoid and psychotic. Insight, judgment seems to be limited. Impulses are well controlled so far. IMPRESSION: At present moment, the patient seems to be delirious due to medical condition. At the same time, the patient has history of schizophrenia, being on Seroquel and Thorazine in the past. PLAN: Continue current management. Continue current medications. This tag writer had prolonged conversation with the patient's [id number], Yesi, please see above. The patient was filling medications at [employer], but the patient was noncompliant with the medications. Meanwhile, Celexa 10 mg daily, Seroquel was started by Medical team, Thorazine was started by Medical team. Most likely, the patient will need Psych admission and family was asking about power of compliance attorney. We will monitor the patient's mental status and if the patient has capacity to do so, it will be offered while the patient is admitted to the medical site. Should you have any questions, give me a call back. Most likely, the patient needs to have transfer to the Psychiatric Inpatient Unit after medical stabilization. Thank you very much for letting me participate in the care of your patient. Barbara Fishman MD
--- NOTE | 2018-02-12 20:59 | PN ---
DATE: 02/12/2018 SUBJECTIVE: The patient is 72-year-old, seen and examined, seemed to be much calm, able to communicate sitting in chair. Denies any nausea or vomiting. Ate fair. Did not eat lunch much. PHYSICAL EXAMINATION VITAL SIGNS: She is afebrile, pulse 86, respirations 20, blood pressure 134/77. LUNGS: Bilateral fair airflow. No rhonchi or crackle. HEART: S1 and S2 audible. ABDOMEN: Soft, nontender. No rebound, no guarding. NEUROLOGICAL: The patient is awake, alert, oriented, able to communicate. LABORATORY EXAMINATION: WBC is 8.5, hemoglobin 11, hematocrit 33, platelets 309. Chemistries: Sodium 143, potassium 3.8, chloride 110, CO2 24, BUN 18, creatinine 0.8, blood sugar of 220, CPK is 1086, MB 6.8. Blood cultures and urine cultures are negative. ASSESSMENT: 1. Status post fall. 2. Rhabdomyolysis. 3. History of schizophrenia. 4. Hypertension. 5. Hyperlipidemia. 6. Insulin-dependent diabetes. 7. Anxiety disorder. PLAN: We will continue the patient on current medication. Encourage p.o. fluid. We can discontinue telemetry. We will follow up electrolyte in a.m. Once the patient is medically stable, should be in Psych unit to observe her behavior. Harry Cristina MD
[2018-02-12] MEDS: QUEtiapine 200 mg XR Tab PO SCH ×2 (21:18→21:24)
[2018-02-13] MEDS: Magnesium Oxide 400 mg Tab UD PO SCH ×3 (11:04→17:13)
--- NOTE | 2018-02-13 12:20 | CP.PCM.CON ---
History of Present Illness - History of Present Illness History of Present Illness: Podiatry consult note - Dr. Armendariz/Dr. Dow 72 yo patient who presents today s/p fall. She presents with a left heel wound and states that she has not noticed it before her visit today. She states that it is painful and she does not believe that the wound came from her fall. She states she has pain in her left foot and ankle along the front and sides. She is unable to recall the gelatin powder mixer that she sees. She denies N/V/F/C/SOB/CP and has no other pedal complaints at this time. PMH: NIDDM, HTN, HLD, bipolar disorder, Schizophrenia,arthritis PSH: hysterectomy and tonsillectomy Allergies: NKDA SH: lives alone at home Meds: see chart Review of Systems - Constitutional Constitutional: As Per HPI Past Patient History - Infectious Disease Hx of Infectious Diseases: None - Tetanus Immunizations Tetanus Immunization: >10 years Ago - Past Social History Smoking Status: Never Smoked - CARDIAC Hx Hypercholesterolemia: Yes - PULMONARY Hx Respiratory Disorders: No Hx Tuberculosis: No - NEUROLOGICAL Hx Neurological Disorder: No HX Cerebrovascular Accident: No Hx Seizures: No - HEENT Hx HEENT Problems: Yes (eyeglasses) - RENAL Hx Chronic Kidney Disease: No - ENDOCRINE/METABOLIC Hx Diabetes Mellitus Type 2: Yes - HEMATOLOGICAL/ONCOLOGICAL Hx Blood Disorders: No Hx Cancer: No Hx Human Immunodeficiency Virus (HIV): No - INTEGUMENTARY Hx Dermatological Problems: Yes Other/Comment: slight redness under breats ad abd fold and groin b/l, redness to buttocks, out left heel 1cm round red wound surrounded by pink skin painful when toughed, small area red discolorred skin r upper thigh - MUSCULOSKELETAL/RHEUMATOLOGICAL Hx Arthritis: Yes - GASTROINTESTINAL Hx Gastrointestinal Disorders: No Other/Comment: pt has had chronic diarrhea for "years" sometimes incontinent - GENITOURINARY/GYNECOLOGICAL Hx Incontinence: Yes ("sometimes" as per family) - PSYCHIATRIC Hx Substance Use: No - SURGICAL HISTORY Hx Surgeries: Yes (tonsillectomy) Hx Hysterectomy: Yes - ANESTHESIA Hx Anesthesia: Yes Hx Anesthesia Reactions: No Hx Malignant Hyperthermia: No Meds Allergies/Adverse Reactions: Allergies Allergy/AdvReac Type Severity Reaction Status Date / Time No Known Allergies Allergy Unverified 02/11/18 12:49 - Medications Medications: Current Medications Acetaminophen (Tylenol 325mg Tab) 650 mg PO Q4H PRN PRN Reason: Fever >100.5 F Amlodipine Besylate (Norvasc) 5 mg PO DAILY [facility] Last Admin: 02/13/18 11:04 Dose: Not Given Chlorpromazine (Thorazine) 50 mg PO [facility]HS [facility] PRN Reason: Protocol Last Admin: 02/13/18 11:04 Dose: Not Given Citalopram Hydrobromide (Celexa) 10 mg PO DAILY [facility] Last Admin: 02/13/18 11:05 Dose: Not Given Collagenase (Santyl) 10 gm TOP DAILY [facility] Sodium Chloride (Sodium Chloride 0.9%) 1,000 mls @ 100 mls/hr IV .Q10H [facility] Last Admin: 02/12/18 11:30 Dose: Not Given Lorazepam (Ativan) 0.5 mg PO BID [facility] PRN Reason: Protocol Last Admin: 02/13/18 11:05 Dose: Not Given Lorazepam (Ativan) 1 mg IVP Q6H PRN; Protocol PRN Reason: Anxiety Losartan Potassium (Cozaar) 100 mg PO DAILY [facility] Last Admin: 02/13/18 11:05 Dose: Not Given Magnesium Oxide (Mag-Ox) 400 mg PO BID [facility] Last Admin: 02/13/18 11:04 Dose: Not Given Metformin HCl (Glucophage) 850 mg PO BID [facility] Last Admin: 02/13/18 11:04 Dose: Not Given Ondansetron HCl (Zofran Inj) 4 mg IVP Q4H PRN PRN Reason: Nausea/Vomiting Quetiapine Fumarate (Seroquel Xr) 100 mg PO [facility] PRN Reason: Protocol Last Admin: 02/12/18 21:24 Dose: Not Given Tamsulosin HCl (Flomax) 0.4 mg PO DAILY [facility] Last Admin: 02/13/18 11:05 Dose: Not Given Physical Exam - Constitutional Appears: Well, Non-toxic, No Acute Distress - Extremities Exam Additional comments: B/L LE exam: V: DP 1/4 right, nonpalpable on left; PT 1/4 b/l; CPT approximately 3s; temp gradient warm to cool from proximal to distal; +1 pitting edema noted surrounding the left ankle joint; no edema noted on right side D: wound measuring approximately 3.5cmx2.5cmx0.3cm noted on the plantar lateral aspect of the left heel, wound base mainly fibrotic with no active drainange, no purulence, no malodor, no periwound hyperkeratosis, no periwound erythema, no clinical suspicion of active infection N: protective sensation mildly diminished O: pain on palpation of the plantar heel, POP posterior to the lateral malleolus and superior to ATFL ligament, no pain during active or passive ROM at hte ankle joint, no pain on palpation of the medial collateral ligaments of the ankle joint - Neurological Exam Neurological exam: Alert, Oriented x3 - Psychiatric Exam Psychiatric exam: Normal Affect, Normal Mood Results - Vital Signs Recent Vital Signs: Last Vital Signs Temp 98 F 02/12/18 18:00 Pulse 93 H 02/12/18 18:00 Resp 20 02/12/18 18:00 BP 134/77 02/12/18 18:00 Pulse Ox 97 02/11/18 17:08 - Labs Result Diagrams: 02/12/18 08:13 02/12/18 08:13 Labs: Laboratory Results - last 24 hr 02/12/18 02/13/18 02/13/18 17:09 00:23 07:27 POC Glucose (mg/dL) 220 H 213 H 188 H Assessment & Plan - Assessment and Plan (Free Text) Assessment: 72 yo female with extensive past medical history was evaluated for left lateral plant chronic heel wound Plan: Pt seen and evaluated Discussed with attending Dr. Armendariz Labs, vitals, and charts reviewed Afebrile, no leukocytosis x-rays of left foot and ankle ordered - pending arterial duplex ordered - pending wound dressed with optifoam santyl ordered Thank you for the podiatry consult, will follow patient while in house
[2018-02-13] MEDS: Sodium Chloride 0.9% 1,000 ML IV SCH (12:39)
--- NOTE | 2018-02-13 13:52 | RAD ---
PROCEDURE: Left Foot Radiographs. HISTORY: s/p fall COMPARISON: None. FINDINGS: BONES: Normal. No fracture. JOINTS: Normal. SOFT TISSUES: Normal. OTHER FINDINGS: None. IMPRESSION: Normal left foot radiographs.
--- NOTE | 2018-02-13 13:52 | RAD ---
PROCEDURE: Left Ankle Radiographs. HISTORY: s/p fall COMPARISON: None FINDINGS: BONES: Normal. No fracture. JOINTS: Normal. No osteoarthritis. Ankle mortise maintained. Talar dome intact SOFT TISSUES: Normal. OTHER FINDINGS: None. IMPRESSION: Normal left ankle radiographs.
--- NOTE | 2018-02-13 16:30 | CP.PCM.PCO ---
Physician Communication Note - Physician Communication Note Physician Communication Note: pt was at the XR, no acute issues, will f/u tomorrow
--- NOTE | 2018-02-13 17:39 | US ---
PROCEDURE: Lower extremity KRISTINA exam HISTORY: Peripheral vascular disease with pain and nonhealing left foot wound. Diabetes PHYSICIAN(S): Suresh Lewis MD. FINDINGS: Exam is limited by calcified vessels. The brachial systolic pressures are symmetric. The low thigh, calf, ankle, and metatarsal PVR waveforms are normal and symmetric. IMPRESSION: 1. Limited exam due to calcified vessels. 2. Normal and symmetric PVR waveforms at all levels
[2018-02-13] MEDS: QUEtiapine 200 mg XR Tab PO SCH (21:27)
--- NOTE | 2018-02-13 23:04 | PN ---
DATE: 02/13/2018 SUBJECTIVE: The patient is a 72-year-old, seen and examined, sitting in chair, seems comfortable, complaining of leg swelling. Not eating that well. Had good breakfast. No appetite for lunch. She is awake and alert, very emotional, wants to cry because she cannot go home. PHYSICAL EXAMINATION VITAL SIGNS: She is afebrile, pulse 93, respirations 19, blood pressure 131/83. LUNGS: Bilateral fair airflow. No rhonchi or crackle. HEART: S1 and S2 audible. ABDOMEN: Soft, nontender. No rebound, no guarding. NEUROLOGICAL: The patient is awake, alert, oriented, communicative. LABORATORY EXAMINATION: Blood sugar is 208. ASSESSMENT: 1. Status post fall. 2. Status post rhabdomyolysis. 3. History of bipolar disorder. 4. Non-insulin dependent diabetes. 5. Hypertension. 6. Hyperlipidemia. PLAN: We will discontinue telemetry. Evaluated by Physical Therapy. She is recommended for subacute rehab. So, now we will continue her on current medication. Monitor her blood sugar. I will discontinue her IV fluid. Follow up blood work, electrolyte, and CPK level in a.m. Harry Cristina MD
[2018-02-14 07:04] LABS: ALB/GLOB RATIO 1.1 (1.1-1.8); ALT/SGPT 30 U/L (7-56); AST/SGOT 24 U/L (14-36); BLOOD UREA NITROGEN 19 mg/dL (7-21); CALCIUM 8.7 mg/dL (8.4-10.5); GFR AFRICAN-AMERICAN > 60; GFR NON-AFRICAN AMERICAN > 60
[2018-02-14 07:07] LABS: FREE T4 1.24 ng/dL (0.78-2.19)
[2018-02-14 07:14] LABS: CK-MB 1.1 ng/mL (0.0-3.6)
--- NOTE | 2018-02-14 09:45 | CP.PCM.PN ---
Subjective - Date & Time of Evaluation Date of Evaluation: 02/14/18 Time of Evaluation: 09:40 - Subjective Subjective: Podiatry progress notes: Dr. Armendariz/Dr. Dow 72 Y/O F patient seen and evaluated at the bed side for left heel wound. Pt is AAOX3, No t in acute distress. Pt denies any acute events over night, Denies any pain over night or today. Pt denies any recent F/N/V/C/SOB or Chest pain. No other pedal complains. Objective - Vital Signs/Intake and Output Vital Signs (last 24 hours): Temp Pulse Resp BP Pulse Ox 97.4 F L 84 18 161/87 H 91 L 02/14/18 07:53 02/14/18 07:53 02/14/18 07:53 02/14/18 07:53 02/14/18 07:53 Intake and Output: 02/14/18 02/14/18 06:59 18:59 Intake Total 380 Output Total 400 Balance -20 - Medications Medications: Current Medications Acetaminophen (Tylenol 325mg Tab) 650 mg PO Q4H PRN PRN Reason: Fever >100.5 F Amlodipine Besylate (Norvasc) 5 mg PO DAILY [facility] Last Admin: 02/13/18 12:22 Dose: 5 mg Chlorpromazine (Thorazine) 50 mg PO [facility] PRN Reason: Protocol Last Admin: 02/13/18 21:29 Dose: 50 mg Citalopram Hydrobromide (Celexa) 10 mg PO DAILY [facility] Last Admin: 02/13/18 12:21 Dose: 10 mg Collagenase (Santyl) 0 gm TOP DAILY [facility] Lorazepam (Ativan) 0.5 mg PO BID [facility] PRN Reason: Protocol Last Admin: 02/13/18 17:13 Dose: 0.5 mg Lorazepam (Ativan) 1 mg IVP Q6H PRN; Protocol PRN Reason: Anxiety Losartan Potassium (Cozaar) 100 mg PO DAILY [facility] Last Admin: 02/13/18 12:21 Dose: 100 mg Magnesium Oxide (Mag-Ox) 400 mg PO BID [facility] Last Admin: 02/13/18 17:13 Dose: 400 mg Metformin HCl (Glucophage) 850 mg PO BID [facility] Last Admin: 02/13/18 17:13 Dose: 850 mg Ondansetron HCl (Zofran Inj) 4 mg IVP Q4H PRN PRN Reason: Nausea/Vomiting Quetiapine Fumarate (Seroquel Xr) 100 mg PO HS [facility] PRN Reason: Protocol Last Admin: 02/13/18 21:27 Dose: 100 mg Tamsulosin HCl (Flomax) 0.4 mg PO DAILY [facility] Last Admin: 02/13/18 12:21 Dose: 0.4 mg - Labs Labs: 02/14/18 06:00 PT 11.5 SECONDS (9.4-12.5) 02/11/18 12:58 INR 1.00 (0.93-1.08) 02/11/18 12:58 APTT 23.2 Seconds (25.1-36.5) L 02/11/18 12:58 - Constitutional Appears: Well, Non-toxic, No Acute Distress - Head Exam Head Exam: ATRAUMATIC, NORMOCEPHALIC - Extremities Exam Additional comments: B/L LE exam: V: DP 1/4 right, nonpalpable on left; PT 1/4 b/l; CPT approximately 3s; temp gradient warm to cool from proximal to distal; +1 pitting edema noted surrounding the left ankle joint; no edema noted on right side D: wound measuring approximately 3.5cmx2.5cmx0.3cm noted on the plantar lateral aspect of the left heel, wound base mainly fibrotic with no active drainange, no purulence, no malodor, no periwound hyperkeratosis, no periwound erythema, no clinical suspicion of active infection N: protective sensation mildly diminished O: pain on palpation of the plantar heel, POP posterior to the lateral malleolus and superior to ATFL ligament, no pain during active or passive ROM at hte ankle joint, no pain on palpation of the medial collateral ligaments of the ankle joint - Neurological Exam Neurological Exam: Alert, Awake, Oriented x3 - Psychiatric Exam Psychiatric exam: Normal Affect, Normal Mood Assessment and Plan - Assessment and Plan (Free Text) Assessment: 72 yo female with extensive past medical history was evaluated for left lateral plant chronic heel wound Plan: Pt seen and evaluated with attending Dr. Armendariz Labs, vitals, and charts reviewed Afebrile, no leukocytosis x-rays of left foot and ankle reviewed and showed no acute pathology. arterial duplex reviewed and showed normal flow. Wound clean with saline and dressed with Santyl and optifoam. Cultures taken-pending. Offloading boats ordered-to be worn in bed at all times. Podiatry to follow up while patient is in house
[2018-02-14] MEDS: Collagenase 250 Units/gm Ointment(30 gm) TOP SCH (09:50)
[2018-02-14] MEDS: Magnesium Oxide 400 mg Tab UD PO SCH ×2 (09:50→17:29)
--- NOTE | 2018-02-14 16:15 | PN ---
DATE: 02/14/2018 SUBJECTIVE: The patient is 72 years old, seen and examined, sitting in chair, seems to be comfortable, much more awake, alert, oriented, communicative, eating and tolerating. PHYSICAL EXAMINATION: VITAL SIGNS: She is afebrile, pulse 84, respirations 18, blood pressure 161/87. LUNGS: Bilateral fair airflow. No rhonchi or crackles. HEART: S1 and S2 audible. ABDOMEN: Soft, nontender. No rebound. No guarding. NEUROLOGICAL: She is awake, alert, oriented, able to communicate. EXTREMITIES: Bilateral legs, no edema. LABORATORY DATA: Blood sugar is 268. Urine tox is negative. Blood cultures and urine cultures are negative. ASSESSMENT: 1. Status post fall. 2. Resolving rhabdomyolysis. 3. History of bipolar disorder. 4. History of paranoid schizophrenia. 5. Bilateral knee osteoarthritis. 6. Hypothyroidism. 7. History of depression. PLAN: Patient is clinically stable. She needs rehab. She can be either transferred to TCU or Psych unit to adjust her medication. Her blood pressure seems to be running on the high side, I will increase her amlodipine to 10 and Gift Shop Clerk will reach out to the insurance and Dr. Jimenez to decide if she will be transferred to Psych unit where she will get the physical therapy or she can go to TCU where she will be followed by Dr. Jimenez to adjust the medication. Harry Cristina MD
--- NOTE | 2018-02-14 17:20 | CON ---
DATE: HISTORY OF PRESENT ILLNESS: The patient is a 72-year-old white female with a long history of schizophrenia who is being followed by Psychiatry due to patient's change in mental status, specifically she is confused and psychotic on the medical floor. I reviewed Dr. Fishman's note from 02/12/2018 and met with the patient at bedside this morning and I have also reviewed the nursing notes that indicate that the patient has been refusing some medications, vitals, and has been not compliant with all of her treatment teams' request. I met with her at bedside and she is aware that she is at [facility]. She initially indicates that it is December, but then recalled it is January. She does not know what year it is. She indicates that it is 2000, however, cannot get the correct year despite multiple attempts. The patient indicates that she is not depressed. She is not hallucinating, she denies having any suicidal thoughts. She indicated that her anxiety is under control, she is sleeping well, and she is tolerating her medications. She is not currently paranoid; however, she might be minimizing symptoms considering she has not been completely cooperative with the treatment team. Delusion is not elicited; however, the patient is guarded and not entirely engages with my questioning, though and superficially cooperative. She does not appear to be responding to internal stimuli. Denies that her mind is playing tricks on her. The patient does indicate that she has had difficulty with memory, which is consistent with delirium diagnosis. Her insight and judgement are considered to be impaired due to her confusion and disorientation, though right now, presents fairly calm and cooperative during my meeting. Vital signs and labs were reviewed by this provider. RELEVANT PSYCHIATRIC MEDICATIONS: Include Thorazine 50 mg a.m. and at bedtime, Ativan 0.5 mg p.o. b.i.d., Ativan 1 mg IV every 6 hours p.r.n. which was not provided, and Seroquel XR 100 mg p.o. at bedtime. At the present moment, the patient appears to be delirious due to her medical issues. Please refer to the medical progress notes for current medical management. I cannot illicit any psychosis at this time; however, I cannot rule out that it is still present. She does have a history of noncompliance with her medications as an outpatient as well as during this hospitalization; however, yesterday, she appeared to have been little bit more cooperative. RECOMMENDATIONS: We will continue with current treatment and medications. It is unclear whether the patient's presentation is secondary to delirium. The patient still appears to be confused and disoriented. She generally has a better baseline in this and she might still be in a confused interval during the delirious process. She might benefit from a psychiatric admission conservatively. If etiology is still unclear, we would recommend psychiatric admission provide the patient is medically cleared. The patient does not have capacity to sign in psychiatrically, so POA would have to be contacted which is my recommendations at this time if she is medically cleared. Otherwise, psychiatric followup on a daily basis and monitor her mental status to determine appropriate disposition. Jewel Melgar MD
[2018-02-14 19:31] VITALS: PULSE 98; RESP 20
[2018-02-14] MEDS: QUEtiapine 200 mg XR Tab PO SCH (21:07)
[2018-02-15 09:34] VITALS: BP 175/91; TEMP 97.2; O2SAT 97
[2018-02-15] MEDS: Magnesium Oxide 400 mg Tab UD PO SCH (10:01)
[2018-02-15] MEDS: Collagenase 250 Units/gm Ointment(30 gm) TOP SCH (10:02)
--- NOTE | 2018-02-15 11:46 | CP.PCM.PN ---
<Javed Russo - Last Filed: 02/15/18 11:43> Subjective - Date & Time of Evaluation Date of Evaluation: 02/15/18 Time of Evaluation: 11:43 - Subjective Subjective: Podiatry progress notes: Dr. Armendariz/Dr. Dow 72 year old female patient seen and evaluated at the bed side for left heel wound. Pt is AAOX3, No t in acute distress. Pt denies any acute events over night, Denies any pain over night or today. Pt denies any recent F/N/V/C/SOB or Chest pain. No other pedal complains. Objective - Vital Signs/Intake and Output Vital Signs (last 24 hours): Temp Pulse Resp BP Pulse Ox 97.2 F L 98 H 20 175/91 H 97 02/15/18 06:00 02/15/18 06:00 02/15/18 06:00 02/15/18 10:01 02/15/18 06:00 Intake and Output: 02/15/18 02/15/18 06:59 18:59 Intake Total 300 Output Total 1000 Balance -700 - Medications Medications: Current Medications Acetaminophen (Tylenol 325mg Tab) 650 mg PO Q4H PRN PRN Reason: Fever >100.5 F Amlodipine Besylate (Norvasc) 10 mg PO DAILY [facility] Last Admin: 02/15/18 10:01 Dose: 10 mg Chlorpromazine (Thorazine) 50 mg PO AMHS [facility] PRN Reason: Protocol Last Admin: 02/15/18 10:02 Dose: 50 mg Citalopram Hydrobromide (Celexa) 10 mg PO DAILY [facility] Last Admin: 02/15/18 09:59 Dose: 10 mg Collagenase (Santyl) 0 gm TOP DAILY [facility] Last Admin: 02/15/18 10:02 Dose: Not Given Lorazepam (Ativan) 0.5 mg PO BID [facility] PRN Reason: Protocol Last Admin: 02/15/18 09:59 Dose: 0.5 mg Losartan Potassium (Cozaar) 100 mg PO DAILY [facility] Last Admin: 02/15/18 10:00 Dose: 100 mg Magnesium Oxide (Mag-Ox) 400 mg PO BID [facility] Last Admin: 02/15/18 10:01 Dose: 400 mg Metformin HCl (Glucophage) 850 mg PO BID [facility] Last Admin: 02/15/18 10:00 Dose: 850 mg Ondansetron HCl (Zofran Inj) 4 mg IVP Q4H PRN PRN Reason: Nausea/Vomiting Quetiapine Fumarate (Seroquel Xr) 100 mg PO 1700 [facility] PRN Reason: Protocol Tamsulosin HCl (Flomax) 0.4 mg PO DAILY [facility] Last Admin: 02/15/18 10:00 Dose: 0.4 mg - Labs Labs: 02/14/18 06:00 PT 11.5 SECONDS (9.4-12.5) 02/11/18 12:58 INR 1.00 (0.93-1.08) 02/11/18 12:58 APTT 23.2 Seconds (25.1-36.5) L 02/11/18 12:58 - Constitutional Appears: Well, Non-toxic, No Acute Distress - Extremities Exam Additional comments: B/L LE exam: V: DP 1/4 right, nonpalpable on left; PT 1/4 b/l; CPT approximately 3s; temp gradient warm to cool from proximal to distal; +1 pitting edema noted surrounding the left ankle joint; no edema noted on right side D: wound measuring approximately 3.5cmx2.5cmx0.3cm noted on the plantar lateral aspect of the left heel, wound base mainly fibrotic with no active drainange, no purulence, no malodor, no periwound hyperkeratosis, no periwound erythema, no clinical suspicion of active infection N: protective sensation mildly diminished O: pain on palpation of the plantar heel, POP posterior to the lateral malleolus and superior to ATFL ligament, no pain during active or passive ROM at hte ankle joint, no pain on palpation of the medial collateral ligaments of the ankle joint - Neurological Exam Neurological Exam: Alert, Awake, Oriented x3 - Psychiatric Exam Psychiatric exam: Normal Affect, Normal Mood Assessment and Plan - Assessment and Plan (Free Text) Assessment: 72 year old female with extensive past medical history was evaluated for left lateral plant chronic heel wound Plan: Pt seen and evaluated Discussed plan with attending Dr. Dow Labs, vitals, and charts reviewed Afebrile, no leukocytosis x-rays of left foot and ankle reviewed and showed no acute pathology. arterial duplex reviewed and showed normal flow. Wound clean with saline and dressed with Santyl and optifoam. Cultures taken-pending. Offloading boats ordered-to be worn in bed at all times. Stable from podiatry standpoint Podiatry to follow up while patient is in house <Jorge Dow - Last Filed: 02/15/18 11:47> Objective - Vital Signs/Intake and Output Vital Signs (last 24 hours): Temp Pulse Resp BP Pulse Ox 97.2 F L 98 H 20 175/91 H 97 02/15/18 06:00 02/15/18 06:00 02/15/18 06:00 02/15/18 10:01 02/15/18 06:00 Intake and Output: 02/15/18 02/15/18 06:59 18:59 Intake Total 300 Output Total 1000 Balance -700 - Medications Medications: Current Medications Acetaminophen (Tylenol 325mg Tab) 650 mg PO Q4H PRN PRN Reason: Fever >100.5 F Amlodipine Besylate (Norvasc) 10 mg PO DAILY [facility] Last Admin: 02/15/18 10:01 Dose: 10 mg Chlorpromazine (Thorazine) 50 mg PO [facility] PRN Reason: Protocol Last Admin: 02/15/18 10:02 Dose: 50 mg Citalopram Hydrobromide (Celexa) 10 mg PO DAILY [facility] Last Admin: 02/15/18 09:59 Dose: 10 mg Collagenase (Santyl) 0 gm TOP DAILY [facility] Last Admin: 02/15/18 10:02 Dose: Not Given Lorazepam (Ativan) 0.5 mg PO BID [facility] PRN Reason: Protocol Last Admin: 02/15/18 09:59 Dose: 0.5 mg Losartan Potassium (Cozaar) 100 mg PO DAILY [facility] Last Admin: 02/15/18 10:00 Dose: 100 mg Magnesium Oxide (Mag-Ox) 400 mg PO BID [facility] Last Admin: 02/15/18 10:01 Dose: 400 mg Metformin HCl (Glucophage) 850 mg PO BID [facility] Last Admin: 02/15/18 10:00 Dose: 850 mg Ondansetron HCl (Zofran Inj) 4 mg IVP Q4H PRN PRN Reason: Nausea/Vomiting Quetiapine Fumarate (Seroquel Xr) 100 mg PO 1700 [facility] PRN Reason: Protocol Tamsulosin HCl (Flomax) 0.4 mg PO DAILY [facility] Last Admin: 02/15/18 10:00 Dose: 0.4 mg - Labs Labs: 02/14/18 06:00 PT 11.5 SECONDS (9.4-12.5) 02/11/18 12:58 INR 1.00 (0.93-1.08) 02/11/18 12:58 APTT 23.2 Seconds (25.1-36.5) L 02/11/18 12:58 Attending/Attestation - Attestation I have personally seen and examined this patient.: Yes I have fully participated in the care of the patient.: Yes I have reviewed all pertinent clinical information, including history, physical exam and plan: Yes
[2018-02-15] MEDS ORDERED: QUEtiapine 50 mg XR Tab PO SCH (17:00)
--- NOTE | 2018-02-15 18:43 | CON ---
HISTORY OF PRESENT ILLNESS: The patient is a 72-year-old female with known history of schizophrenia, who has been followed by Psychiatry on the medical floor due to altered mental status. Specifically, the patient has been confused and disorganized on the medical floor. I reviewed Dr. Fishman's note from 02/12/2018, and met with the patient at bedside yesterday morning on 02/14/2018, and again this morning on 02/15/2018. The patient remembers me from my prior visit and she appears to be a lot more oriented and her focus is actually a consisting focus for longer periods of time and her affect appears to be more reactive as well. She is aware that she is at [facility]. She knows that the month is January; however, she did not provide the current year. She reports that she feels pretty good at this time and denies any active or profound symptoms of depression or anxiety. She reports that she is hopeful and optimistic about improvement in her medical status as well. She is generally coherent and her responses are goal directed and logical and questions. There is some hesitancy and confusion and vagueness still present. However, she is responding very nicely to the medications as well as to medical treatment and appears that her delirium is resolving. The patient again denies having any hallucinations and she does not appear to be responding to internal stimuli and do not reflect any perceptual disturbance on her part. She does not appear to be paranoid or hypervigilant, and she appears to be grateful for her nursing staffs' help early this morning. Her insight and judgement are improving very well. Regarding the medications, she denies any side effects. She reports that she slept well last night; however, she is sedated in the a.m. More sedated than she like to be. She agrees to changing her Seroquel XR dosing to 5 p.m. in view of at bedtime dosing of that, so that it is being affected her earlier at night than prior nights. Labs and vitals were reviewed by this provider. RELEVANT PSYCHIATRIC MEDICATIONS: Include Thorazine 50 mg in the a.m. and at bedtime, Ativan 0.5 mg p.o. b.i.d. scheduled, Ativan 1 mg IV every 6 hours p.r.n., Seroquel XR 100 mg p.o. at bedtime. IMPRESSION: Resolving delirium, history of schizoaffective disorder. Does not appear to be directly contributory to the patient's presentation at this time. RECOMMENDATIONS: I will continue with current treatment and medications and as mentioned above, we will change Seroquel XR 100 mg at bedtime to Seroquel XR 100 mg every 5 p.m. The patient note that it takes 5 hours for the sedating effects of Seroquel XR to take place and this will aid the patient going to sleep earlier and being more alert earlier in the a.m. Psychiatry will continue to follow up with the patient every other day, monitor her mental status, need for other medication adjustments; however, she appears to be improving very well and does not require psychiatric inpatient stabilization once she is medically stabilized. Jewel Melgar MD
--- NOTE | 2018-02-18 08:45 | DS ---
HISTORY OF PRESENT ILLNESS: The patient is 72 years old, seen and examined, sitting in a chair, seems to be comfortable. No nausea, no vomiting, no diarrhea. Eating and tolerating. PHYSICAL EXAMINATION VITAL SIGNS: The patient is afebrile, pulse 98, respiration 20, blood pressure 175/91. LUNGS: Bilateral fair airflow. No rhonchi or crackle. HEART: S1 and S2 audible. ABDOMEN: Soft, nontender. No rebound. No guarding. NEUROLOGICAL: The patient is awake, alert, oriented, communicative, ambulatory, but minimal assistance. IMAGING DATA: Has arterial Doppler done that is unremarkable. X-ray of the ankle is unremarkable. ASSESSMENT AND PLAN: 1. Status post fall. 2. Resolved rhabdomyolysis. 3. History of bipolar disorder. 4. Non-insulin dependent diabetes. 5. Hypertension. The patient has spoken to social worker assistant. The patient is being transferred to subacute rehab as per family's choice. Although, I wanted her to go to Psychiatric Unit along with rehab. So, we can monitor her medication and she can get physical therapy. However, upon family's request, she is being sent to . Harry Cristina MD
== END 2018-02-15 17:56 | DRG 558 ==
LOC: EDUNIT# → ED 12:48 → ERH 15:28 → 2RSO 17:53 → OBSVTOIN 02-12 13:28 → 3RNO 02-13 13:52
PROVIDERS: ADMIT Internal Medicine; ATTEND Internal Medicine
DX: M62.82 Rhabdomyolysis (principal); F20.0 Paranoid schizophrenia; F05 Delirium due to known physiological condition; F31.9 Bipolar disorder, unspecified; E11.9 Type 2 diabetes mellitus without complications; I10 Essential (primary) hypertension; F25.9 Schizoaffective disorder, unspecified; M17.0 Bilateral primary osteoarthritis of knee; E86.0 Dehydration; E78.5 Hyperlipidemia, unspecified; E78.00 Pure hypercholesterolemia, unspecified; E03.9 Hypothyroidism, unspecified; Z79.899 Other long term (current) drug therapy; Z90.710 Acquired absence of both cervix and uterus; Z91.14 Patient's other noncompliance with medication regimen; R40.2412 Glasgow coma scale score 13-15, at arrival to emergency department; Z79.84 Long term (current) use of oral hypoglycemic drugs

== ENCOUNTER 2018-11-04 13:46 | Inpatient (IN) | payer MEDICARE, MEDICAID ==
[2018-11-04 13:46] VITALS: BMI 28.1
[2018-11-04 16:54] LABS: BASO # 0.01 K/mm3 (0.0-2.0); BASO % 0.2 % (0.0-3.0); EOS # 0.1 (0.0-0.7); EOS % 1.5 % (1.5-5.0); HEMOGLOBIN 10.8 g/dL (12.0-16.0); LYMPH # 1.7 (1.2-3.4); LYMPH % 27.3 % (22.0-35.0); MEAN CELL VOLUME 84.9 fl (80.0-105.0); MEAN CORPUSCULAR HEMOGLOBIN 27.6 pg (25.0-35.0); MEAN CORPUSCULAR HGB CONC 32.4 g/dl (31.0-37.0); MEAN PLATELET VOLUME 9.2 fl (7.0-11.0); MONO # 0.6 (0.1-0.6); MONO % 9.3 % (1.0-6.0); RBC 3.92 10^6/uL (3.5-6.1); RED CELL DISTRIBUTION WIDTH 14.1 % (11.5-14.5); WHITE BLOOD COUNT 6.2 10^3/uL (4.5-11.0)
[2018-11-04 16:57] LABS: ACETAMINOPHEN < 10.0 ug/ml (10.0-20.0); SALICYLATE < 1 mg/dL (2.0-20.0)
[2018-11-04 16:59] LABS: ALB/GLOB RATIO 1.4 (1.1-1.8); ALBUMIN 4.2 g/dL (3.0-4.8); ALT/SGPT 7 U/L (7-56); AST/SGOT 15 U/L (14-36); BLOOD UREA NITROGEN 19 mg/dL (7-21); CALCIUM 9.3 mg/dL (8.4-10.5); GFR NON-AFRICAN AMERICAN > 60
--- NOTE | 2018-11-04 17:14 | RAD ---
Date of service: 11/04/2018 HISTORY: pes eval COMPARISON: 02/11/2018 FINDINGS: LUNGS: No active pulmonary disease. PLEURA: No significant pleural effusion identified, no pneumothorax apparent. CARDIOVASCULAR: No atherosclerotic calcification present Normal. OSSEOUS STRUCTURES: No significant abnormalities. VISUALIZED UPPER ABDOMEN: Normal. OTHER FINDINGS: None. IMPRESSION: No active disease. No significant interval change compared to the prior examination(s).
--- NOTE | 2018-11-04 17:56 | CARD ---
APPROVED REPORT Date of service: 11/04/2018 EKG Measurement Heart [id number] <Conclusion> Normal sinus rhythm Cannot rule out Anterior infarct, age undetermined Abnormal ECG
[2018-11-04 18:50] LABS: URINE BILIRUBIN NEGATIVE (NEGATIVE); URINE BLOOD NEGATIVE (NEGATIVE); URINE GLUCOSE (UA) NEGATIVE (NEGATIVE); URINE LEUKOCYTE ESTERASE MODERATE Leu/uL (NEGATIVE); URINE PROTEIN NEGATIVE mg/dL (<30 mg/dL); URINE UROBILINOGEN 0.2 E.U./dL (<1 E.U./dL)
[2018-11-04 18:55] LABS: URINE COLOR LIGHT YELLOW (YELLOW)
[2018-11-04 19:09] LABS: URINE APPEARANCE SL CLOUDY (CLEAR); URINE BACTERIA TRACE /hpf; URINE RBC 0 - 2 /hpf (0-2)
[2018-11-04 19:11] LABS: BARBITURATES, UR NEGATIVE (NEGATIVE); BENZODIAZEPINES, UR NEGATIVE (NEGATIVE); OPIATES, UR NEGATIVE (NEGATIVE); PHENCYCLIDINE, UR NEGATIVE (NEGATIVE)
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
[2018-11-04] MEDS ORDERED: Alum-Mag Hydrox-Simethicone Susp (30 mL) PO PRN (21:09)
[2018-11-04] MEDS ORDERED: Magnesium Hydroxide Susp 30 ml UD PO PRN (21:09)
[2018-11-04] MEDS: QUEtiapine 150 mg XR Tab PO SCH (21:35)
--- NOTE | 2018-11-04 22:45 | PCM.BM ---
<Paddy Clemente - Last Filed: 11/04/18 22:42> Treatment Plan Problems - Problems identified on initial assessmt GENERALIZED ANXIETY Date Initiated: 11/04/18 Time Initiated: 21:00 Assessment reference: NA Status: Active Priority: 1 INEFECTIVE COPING Date Initiated: 11/04/18 Time Initiated: 21:00 Assessment reference: NA Status: Active Priority: 2 ALTERED THOUGHT PROCESS Date Initiated: 11/04/18 Time Initiated: 21:00 Assessment reference: NA Status: Active Priority: 3 FEAR Date Initiated: 11/04/18 Time Initiated: 21:00 Assessment reference: NA Status: Active Priority: 4 Treatment assets and liabiliti Patient Assests: cooperative, self-reliant, ADL independent, negotiates basic needs, cognitively intact Patient Liabilities: live alone, financial problems, relationship conflicts, medical problems, visual impairment - Milieu Protocol Maintain good personal hygiene: every other day Encourage regular showers, every shift Remind patient to perform daily oral care, every shift Assist patient to perform ADL's Maintain personal safety: every shift Educate patient to report safety concerns to staff, every shift Monitor environment for contraband/sharps Medication safety: Monitor for expected outcome, potential side effects: every shift, Assess barriers to learning: every shift, Assess readiness for medication education: every shift Family Contact Family involvement: Family/SO is involved Family contact: Patient agrees to contact Discharge/Continuing Care - Education Needs Education Needs: Family Medication, Patient Medication, Patient Diagnosis/Disease Process, Patient Coping Skills, Patient Placement options, Patient Community resources, Patient Activities of Daily Living, Patient Health Practices/Safety, Patient Aftercare Safety Plan - Discharge Discharge Criteria: Tolerates medication w/o severe side effects, Free of paranoid thoughts, Free of agitation, Normal sleep pattern, Ability to care for self <Barbara Fishman - Last Filed: 11/05/18 10:05> - Diagnosis (1) Schizoaffective disorder, depressive type Status: Chronic Interventions: 11/05/18 10:05 Psychoeducation/psychotherapy Psychopharmacology/adjustment of medications as needed/ monitoring possible side effects Evaluate pt on daily basis Compliance with medications and follow up appointments Long acting medication if pt is noncompliant with pill form Suicide and homicide risk assessment and prevention, coping strategies, safety plan Relapse prevention Reduction of symptoms Improve functional status Possible assertive community treatment Cognitive behavioral therapy Family involvement Possible social skill training as outpatient <Gabby Croft Y - Last Filed: 11/08/18 10:04> Family Contact Family involvement: Family/SO is involved Family contact: Patient agrees to contact Family contact name: Yesi Malik([id number]) Family contacted how many times per week?: 2
[2018-11-05 08:11] LABS: GLUCOSE,FASTING 100 mg/dL (65-110); HDL CHOLESTEROL 40 mg/dL (29-60)
[2018-11-05 08:22] LABS: LDL CHOLESTEROL 73 mg/dL (0-129)
[2018-11-05] MEDS: Magnesium Oxide 400 mg Tab UD PO SCH ×2 (09:45→17:00)
--- NOTE | 2018-11-05 13:44 | PCM.PSYCH ---
Initial Psychiatric Evaluation - Initial Psychiatric Evaluation Type of Admission: Voluntary Legal Status: Capacity (Patient has a capacity to sign consent for treatment) Chief Complaint (in patient's own words): "I was doing fine, my family wants to get rid of me, they want me to stay in the hospital for years....." Patient's Reaction to Hospitalization: Patient was admitted to the psychiatric inpatient unit for evaluation and stabilization of disorganized thoughts, disorganized behavior, delusions, inability to function, erratic behavior, not sleeping, accusing family of stealing her phone. History of Present Illness and Precipitating Events: Shortly patient is a 73-year old female with reported history of schizoaffective disorder, bipolar type, multiple psychiatric admissions in the past, most recent was here in [facility] in 2017, currently under care or of [facility], patient was brought in by her family for evaluation and stabilization of disorganized thoughts, disorganized behavior, which were progressively worsening for past 2 weeks, inability to f unction, patient was calling different family members in the middle of the night, accusing family of stealing her phone, patient was calling her daughter in law "devil", screaming, cursing, patient requires further evaluation and stabilization and medications adjustment. pt was seen at the treatment team meeting room, patient presented with acceptable personal hygiene, seems to be careless about her appearance, has olm[place]/uncombed hair, angry/irritable lobe, patient said that she remembers this w riter but does not remember her name. Patient reported that she was brought in by her family "but I did well, but nothing was bothering me, they want to lock me up, they want me to stay in the hospital for years" patient presented to be guarded, disorganized, paranoid, at the same time patient was saying that she did well, nothing was bothering her. As per collateral information from patient's family at ED, PES spoke with pt's [id number] Yesi and Son Devonte, at bedside. Pt's son states that patient is currently "putting on a good act" because she has been absolutely "horrible at home", but erratic behavior. Slandering the family, calling daughter in law the "devil". Not sleeping, calling daughter in [place] at 2am causing family to take her phone away. Screaming in the middle of the night, cursing. Screaming in Hungarian (which family has never witnessed), pt. claims to speak in Hungarian all the time. Rapidly declining, has been going on for a few weeks. Patient herself denies that she hears any voices, denied seeing things, denied feeling paranoid but obviously patient appears to be guarded. Patient denied thoughts of harming herself or others, denied in terms or plan. Patient had manic episodes in the past. Patient denied using drugs, denied smoking, denies alcohol consumption. Past psychiatric history: Long h/o mental illness h/o multiple psych admissions, most recent was 2016, before that 30 years ago, depression/psychosis, no suicidal attempts. medical h/o: HTN, dyslipidemia, arthritis, saw pt Medications were confirmed by patient's pharmacy: seroquel 100mg hs filled in September citalopram 10mg po daily filled in September Lorazepam 0.5mg po bid PRN filled in September Metformin 850mg po bid glimepiride 4mg po bid Amlodipine 5mg po daily In the emergency room patient got 1 dose of antibiotic for urinary tract infection. Family history: Not known family history of mental illness Social history: Patient lives independently, patient reported that she wants to leave at senior citizen housing, at present moment patient lives in section 8 apartment. 11/04/18 16:40 11/04/18 16:40 Lab Results 11/05/18 07:40: TSH 3rd Generation 0.32 L 11/05/18 07:40: Fasting Glucose 100, Triglycerides 85, Cholesterol 143, LDL Cholesterol Direct 73, HDL Cholesterol 40 11/05/18 07:30: POC Glucose (mg/dL) 105 11/04/18 21:24: POC Glucose (mg/dL) 57 L 11/04/18 18:40: Urine Opiates Screen Negative, Urine Methadone Screen Negative, Ur Barbiturates Screen Negative, Ur Phencyclidine Scrn Negative, Ur Amphetamines Screen Negative, U Benzodiazepines Scrn Negative, U Oth Cocaine Metabols Negative, U Cannabinoids Screen Negative 11/04/18 18:40: Urine Color Light yellow, Urine Appearance Sl cloudy, Urine pH 6.0, Ur Specific [place] 1.010, Urine Protein Negative, Urine Glucose (UA) Negative, Urine Ketones Negative, Urine Blood Negative, Urine Nitrate Negative, Urine Bilirubin Negative, Urine Urobilinogen 0.2, Ur Leukocyte Esterase Moderate H, Urine RBC 0 - 2, Urine WBC 5 - 10 H, Ur Epithelial Cells 1 - 3, Urine Bacteria Trace 11/04/18 16:40: Alcohol, Quantitative < 10 11/04/18 16:40: Salicylates < 1 L, Acetaminophen < 10.0 L 11/04/18 16:40: Sodium 138, Potassium 3.9, Chloride 105, Carbon Dioxide 23, Anion Gap 14, BUN 19, Creatinine 0.7, Est GFR ( Amer) > 60, Est GFR (Non- Af Amer) > 60, Random Glucose 177 H, Calcium 9.3, Total Bilirubin 0.2, AST 15, ALT 7, Alkaline Phosphatase 71, Total Protein 7.2, Albumin 4.2, Globulin 3.0, Albumin/Globulin Ratio 1.4 11/04/18 16:40: WBC 6.2, RBC 3.92, Hgb 10.8 L, Hct 33.3 L, MCV 84.9, MCH 27.6, MCHC 32.4, RDW 14.1, Plt Count 352, MPV 9.2, Neut % (Auto) 61.7, Lymph % (Auto) 27.3, [place] % (Auto) 9.3 H, Eos % (Auto) 1.5, Baso % (Auto) 0.2, Lymph # (Auto) 1.7, [place] # (Auto) 0.6, Eos # (Auto) 0.1, Baso # (Auto) 0.01, Absolute Neuts (auto) 3.81 Vital Signs Temp Pulse Resp BP Pulse Ox 11/05/18 09:44 91 H 135/79 11/05/18 07:00 97.6 F 91 H 17 135/79 11/04/18 22:37 20 11/04/18 20:20 92 H 18 138/72 100 11/04/18 17:25 95 H 18 148/78 96 11/04/18 15:31 98.4 F 102 H 18 153/82 H 95 11/04/18 13:46 98.8 F 104 H 18 138/62 97 The patient failed the outpatient lower level of care: Yes Current Medications: Active Medications Generic Name Dose Route Start Last Admin Trade Name Freq PRN Reason Stop Dose Admin Acetaminophen 650 mg 11/04/18 21:09 11/05/18 00:25 Tylenol 325mg Tab PO 650 mg Q4H PRN Administration Pain, Mild (1-3) Al Hydrox/Mg Hydrox/Simethicone 30 ml 11/04/18 21:09 Maalox Plus 30 Ml PO DAILY PRN Upset Stomach Amlodipine Besylate 5 mg 11/05/18 10:00 11/05/18 09:44 Norvasc PO 5 mg DAILY KAYLIN Administration Citalopram Hydrobromide 20 mg 11/05/18 10:00 11/05/18 09:45 Celexa PO 20 mg DAILY KAYLIN Administration Lorazepam 0.5 mg 11/04/18 21:06 11/05/18 03:32 Ativan PO 0.5 mg Q6H PRN Administration Anxiety Protocol Losartan Potassium 100 mg 11/05/18 10:00 11/05/18 09:44 Cozaar PO 100 mg DAILY KAYLIN Administration Magnesium Hydroxide 30 ml 11/04/18 21:09 Milk Of Magnesia PO DAILY PRN Constipation Magnesium Oxide 400 mg 11/05/18 10:00 11/05/18 09:45 Mag-Ox PO 400 mg BID KAYLIN Administration Metformin HCl 850 mg 11/05/18 10:00 11/05/18 09:44 Glucophage PO 850 mg BID KAYLIN Administration Quetiapine Fumarate 150 mg 11/04/18 22:00 11/04/18 21:35 Seroquel Xr PO 150 mg HS KAYLIN Administration Protocol Tamsulosin HCl 0.4 mg 11/05/18 10:00 11/05/18 09:44 Flomax PO 0.4 mg DAILY KAYLIN Administration Present on Admission - Present on Admission Any Indicators Present on Admission: No Review of Systems - Review of Systems Systems not reviewed;Unavailable: Acuity of Condition - Constitutional Constitutional: As Per HPI - EENT Eyes: As Per HPI Ears: As Per HPI Nose/Mouth/Throat: As Per HPI - Breasts Breasts: As Per HPI - Cardiovascular Cardiovascular: As Per HPI - Respiratory Respiratory: As Per HPI - Gastrointestinal Gastrointestinal: As Per HPI - Genitourinary Genitourinary: As Per HPI - Reproductive: Female Reproductive:Female: As Per HPI - Menstruation Menstruation: As Per HPI - Musculoskeletal Musculoskeletal: As Per HPI - Integumentary Integumentary: As Per HPI - Neurological Neurological: As Per HPI - Psychiatric Psychiatric: As Per HPI - Endocrine Endocrine: As Per HPI - Hematologic/Lymphatic Hematologic: As Per HPI Past Patient History - Past Psychiatric History Previous Treatment History: Inpatient (Patient) Prior Professional Help: See HPI Prior Psychiatric Treatment: See HPI At what hospital: See HPI Duration: See HPI Nature of Treatment: See HPI Explanation of prior treatment: See HPI - PSYCHIATRIC Hx Anxiety: Yes Hx Depression: Yes Hx Physical Abuse: No Hx Substance Use: No - Infectious Disease Hx of Infectious Diseases: None - Tetanus Immunizations Tetanus Immunization: >10 years Ago - CARDIAC Hx Cardiac Disorders: Yes Hx Hypertension: Yes - PULMONARY Hx Respiratory Disorders: No Hx Tuberculosis: No - NEUROLOGICAL HX Cerebrovascular Accident: No Hx Seizures: No - HEENT Hx HEENT Problems: Yes (eyeglasses) - RENAL Hx Chronic Kidney Disease: No - ENDOCRINE/METABOLIC Hx Diabetes Mellitus Type 2: Yes - HEMATOLOGICAL/ONCOLOGICAL Hx Blood Disorders: No Hx Cancer: No - INTEGUMENTARY Hx Dermatological Problems: Yes Other/Comment: slight redness under breats ad abd fold and groin b/l, redness to buttocks, out left heel 1cm round red wound surrounded by pink skin painful when toughed, small area red discolorred skin r upper thigh - MUSCULOSKELETAL/RHEUMATOLOGICAL Hx Arthritis: Yes - GASTROINTESTINAL Hx Gastrointestinal Disorders: No Other/Comment: pt has had chronic diarrhea for "years" sometimes incontinent - GENITOURINARY/GYNECOLOGICAL Hx Urinary Tract Infection: Yes - SURGICAL HISTORY Hx Hysterectomy: Yes - ANESTHESIA Hx Anesthesia: Yes Hx Anesthesia Reactions: No Hx Malignant Hyperthermia: No - Medical/Surgical History Reviewed & confirmed: by vt Meds Allergies/Adverse Reactions: Allergies Allergy/AdvReac Type Severity Reaction Status Date / Time No Known Allergies Allergy Unverified 02/11/18 12:49 Mental Status Examination - Personal Presentation Personal Presentation: Looks stated age - Affect Affect: Flat - Motor Activity Motor Activity: Calm - Reliability in Providing Information Reliability in Providing Information: Poor, due to alteration in thoughts, Poor, due to altered mood, Poor, due to cognitve impairment - Speech Speech: Disorganized - Mood Mood: Depressed - Formal Thought Process Formal Thought Process: Delusions, Paranoia - Hallucinations/Delusions Delusions: Persecution - Obsessions/Compulsions Obsessions: None Compulsions: None - Cognitive Functions Orientation: Person, Place, Situation Sensorium: Alert Attention/Concentration: Easily distracted Abstract Thinking: [place] Estimate of Intelligence: Average Judgement: Intact, as evidence by: Insight regarding need for hospitalization - Risk Risk: Self-mutilation, Diminished functioning - Strength & Assets Inventory Strength & Assets Inventory: Family support, Cooperative - Limitations Limitations: Other (Treatment resistant symptoms) Psychiatric Physical Exam - Physical Exam Reviewed and confirmed: Emergency Department Physical Exam Results - Vital Signs Recent Vital Signs: Last Vital Signs Temp 97.6 F 11/05/18 07:00 Pulse 91 H 11/05/18 09:44 Resp 17 11/05/18 07:00 BP 135/79 11/05/18 09:44 Pulse Ox 100 11/04/18 20:20 - Labs Result Diagrams: 11/04/18 16:40 11/04/18 16:40 Labs: Laboratory Results - last 24 hr 11/04/18 11/04/18 11/04/18 16:40 16:40 16:40 WBC 6.2 RBC 3.92 Hgb 10.8 L Hct 33.3 L MCV 84.9 MCH 27.6 MCHC 32.4 RDW 14.1 Plt Count 352 MPV 9.2 Neut % (Auto) 61.7 Lymph % (Auto) 27.3 [place] % (Auto) 9.3 H Eos % (Auto) 1.5 Baso % (Auto) 0.2 Lymph # (Auto) 1.7 [place] # (Auto) 0.6 Eos # (Auto) 0.1 Baso # (Auto) 0.01 Absolute Neuts (auto) 3.81 Sodium 138 Potassium 3.9 Chloride 105 Carbon Dioxide 23 Anion Gap 14 BUN 19 Creatinine 0.7 Est GFR ( Amer) > 60 Est GFR (Non-Af Amer) > 60 POC Glucose (mg/dL) Random Glucose 177 H Fasting Glucose Calcium 9.3 Total Bilirubin 0.2 AST 15 ALT 7 Alkaline Phosphatase 71 Total Protein 7.2 Albumin 4.2 Globulin 3.0 Albumin/Globulin Ratio 1.4 Triglycerides Cholesterol LDL Cholesterol Direct HDL Cholesterol TSH 3rd Generation Urine Color Urine Appearance Urine pH Ur Specific [place] Urine Protein Urine Glucose (UA) Urine Ketones Urine Blood Urine Nitrate Urine Bilirubin Urine Urobilinogen Ur Leukocyte Esterase Urine RBC Urine WBC Ur Epithelial Cells Urine Bacteria Salicylates < 1 L Urine Opiates Screen Urine Methadone Screen Acetaminophen < 10.0 L Ur Barbiturates Screen Ur Phencyclidine Scrn Ur Amphetamines Screen U Benzodiazepines Scrn U Oth Cocaine Metabols U Cannabinoids Screen Alcohol, Quantitative 11/04/18 11/04/18 11/04/18 16:40 18:40 18:40 WBC RBC Hgb Hct MCV MCH MCHC RDW Plt Count MPV Neut % (Auto) Lymph % (Auto) [place] % (Auto) Eos % (Auto) Baso % (Auto) Lymph # (Auto) [place] # (Auto) Eos # (Auto) Baso # (Auto) Absolute Neuts (auto) Sodium Potassium Chloride Carbon Dioxide Anion Gap BUN Creatinine Est GFR ( Amer) Est GFR (Non-Af Amer) POC Glucose (mg/dL) Random Glucose Fasting Glucose Calcium Total Bilirubin AST ALT Alkaline Phosphatase Total Protein Albumin Globulin Albumin/Globulin Ratio Triglycerides Cholesterol LDL Cholesterol Direct HDL Cholesterol TSH 3rd Generation Urine Color Light yellow Urine Appearance Sl cloudy Urine pH 6.0 Ur Specific [place] 1.010 Urine Protein Negative Urine Glucose (UA) Negative Urine Ketones Negative Urine Blood Negative Urine Nitrate Negative Urine Bilirubin Negative Urine Urobilinogen 0.2 Ur Leukocyte Esterase Moderate H Urine RBC 0 - 2 Urine WBC 5 - 10 H Ur Epithelial Cells 1 - 3 Urine Bacteria Trace Salicylates Urine Opiates Screen Negative Urine Methadone Screen Negative Acetaminophen Ur Barbiturates Screen Negative Ur Phencyclidine Scrn Negative Ur Amphetamines Screen Negative U Benzodiazepines Scrn Negative U Oth Cocaine Metabols Negative U Cannabinoids Screen Negative Alcohol, Quantitative < 10 11/04/18 11/05/18 11/05/18 21:24 07:30 07:40 WBC RBC Hgb Hct MCV MCH MCHC RDW Plt Count MPV Neut % (Auto) Lymph % (Auto) [place] % (Auto) Eos % (Auto) Baso % (Auto) Lymph # (Auto) [place] # (Auto) Eos # (Auto) Baso # (Auto) Absolute Neuts (auto) Sodium Potassium Chloride Carbon Dioxide Anion Gap BUN Creatinine Est GFR ( Amer) Est GFR (Non-Af Amer) POC Glucose (mg/dL) 57 L 105 Random Glucose Fasting Glucose 100 Calcium Total Bilirubin AST ALT Alkaline Phosphatase Total Protein Albumin Globulin Albumin/Globulin Ratio Triglycerides 85 Cholesterol 143 LDL Cholesterol Direct 73 HDL Cholesterol 40 TSH 3rd Generation Urine Color Urine Appearance Urine pH Ur Specific [place] Urine Protein Urine Glucose (UA) Urine Ketones Urine Blood Urine Nitrate Urine Bilirubin Urine Urobilinogen Ur Leukocyte Esterase Urine RBC Urine WBC Ur Epithelial Cells Urine Bacteria Salicylates Urine Opiates Screen Urine Methadone Screen Acetaminophen Ur Barbiturates Screen Ur Phencyclidine Scrn Ur Amphetamines Screen U Benzodiazepines Scrn U Oth Cocaine Metabols U Cannabinoids Screen Alcohol, Quantitative 11/05/18 07:40 WBC RBC Hgb Hct MCV MCH MCHC RDW Plt Count MPV Neut % (Auto) Lymph % (Auto) [place] % (Auto) Eos % (Auto) Baso % (Auto) Lymph # (Auto) [place] # (Auto) Eos # (Auto) Baso # (Auto) Absolute Neuts (auto) Sodium Potassium Chloride Carbon Dioxide Anion Gap BUN Creatinine Est GFR ( Amer) Est GFR (Non-Af Amer) POC Glucose (mg/dL) Random Glucose Fasting Glucose Calcium Total Bilirubin AST ALT Alkaline Phosphatase Total Protein Albumin Globulin Albumin/Globulin Ratio Triglycerides Cholesterol LDL Cholesterol Direct HDL Cholesterol TSH 3rd Generation 0.32 L Urine Color Urine Appearance Urine pH Ur Specific [place] Urine Protein Urine Glucose (UA) Urine Ketones Urine Blood Urine Nitrate Urine Bilirubin Urine Urobilinogen Ur Leukocyte Esterase Urine RBC Urine WBC Ur Epithelial Cells Urine Bacteria Salicylates Urine Opiates Screen Urine Methadone Screen Acetaminophen Ur Barbiturates Screen Ur Phencyclidine Scrn Ur Amphetamines Screen U Benzodiazepines Scrn U Oth Cocaine Metabols U Cannabinoids Screen Alcohol, Quantitative - EKG Data EKG Interpreted by: ER Physician EKG shows normal: Sinus rhythm DSM Plan - DSM 5 DSM 5 Diagnosis: Schizoaffective disorder, bipolar type, most recent episode mixed - Recommended/Plan of Treatment Treatment Recommendations and Plan of Treatment: Milieu/structure/supportive therapy SW consultation for discharge plan and social issues Med management: Medications were confirmed by patient pharmacy Seroquel was increased to 150 mg at the nighttime for psychosis Celexa was increased to 50 mg daily for depression and anxiety Ativan as needed for anxiety Patient was seen by medical team for questionable urinary tract infection Collateral from family was obtained by PES worker in the emergency room Follow up on labs Will monitor closely Pt was educated about risk/benefits and alternatives of medications, coping strategies (safety plan, suicide prevention), relapse prevention, importance of follow up with psychiatrist and therapist, stay away from drugs/alcohol/smoking Projected ELOS: 7 days Prognosis: Guarded Discharge Plan and Discharge Criteria: Pt will be not depressed or manic, will be more hopeful, will be not psychotic or anxious, will be tolerating medications well, will not have major side effects, will be able to function, will not pose threat to self or others. - Tobacco Cessation Tobacco Use Status for the last 30 days: Non User Tobacco Use Treatment Practical Counseling Provided: No Tobacco Use Treatment FDA-Approved Cessation Medication Provided: No - Alcohol or Substance Abuse Does the patient have an Alcohol or Substance Abuse Disorder: No Initial Psych Certification - Initial Certification I certify that the inpatient psychiatric facility admission was medically necessary for either: Treatment which could reasonbly be expected to improve pt's condition I estimate of hospitalization is necessary for proper treatment of the patient: 7 Unit of Time: Days My plans for post-hospital care for this patient are: Day treatment program/senior citizen program
[2018-11-05] MEDS: Insulin Lispro (humaLOG) MEDIUM Coverage SC SCH ×2 (17:01→21:16)
--- NOTE | 2018-11-05 19:47 | CON ---
DATE: 11/05/2018 HISTORY OF PRESENT ILLNESS: The patient is a 73-year-old was brought in by family because of feeling depressed. The patient does have a history of schizophrenia. She is not very compliant with her psych medications, sometime even she refused to take her usual meds and [facility] [address]. The patient was seen and examined, seems to be doing well, and offer no significant complaint except feeling depressed at time. No history of nausea, vomiting, eating, or tolerating. No chest pain. No shortness of breath. No abdominal pain. PAST MEDICAL HISTORY: Significant for: 1. Hypertension. 2. Uncontrolled diabetes. 3. Chronic back pain. 4. Hyperlipidemia. ALLERGIES: SHE IS NOT ALLERGIC TO ANY MEDICATIONS. MEDICATIONS AT HOME: She is on: 1. Amlodipine 5 mg daily. 2. Ativan 0.5 twice a day. 3. Metformin 850 twice a day. 4. Seroquel 100 mg at bedtime. 5. Thorazine 25 twice a day. 6. Celexa 20 mg daily. 7. Losartan 100 mg daily. SOCIAL HISTORY: She lives with her son who lives upstairs and she lives downstairs. She has home health aide. PHYSICAL EXAMINATION: GENERAL: Today; she is awake, alert, oriented, and communicative. VITAL SIGNS: She is afebrile, pulse 91, respirations 17, and blood pressure 135/79. LUNGS: Bilateral fair airflow. No rhonchi or crackle. HEART: S1 and S2 audible. ABDOMEN: Soft and nontender. No rebound. No guarding. NEUROLOGICAL: She is awake, alert, and able to communicate. LABORATORY DATA: WBC is 6.2, hemoglobin 10.8, hematocrit 33.3, and platelets 352. Chemistry; sodium 138, potassium 3.9, chloride 105, CO2 of 23, BUN 19, creatinine 0.7, blood sugar of 105, and TSH 0.32. Urinalysis is unremarkable. Urine tox is negative. ASSESSMENT: 1. Noninsulin-dependent diabetes. 2. Hypertension. 3. Hyperlipidemia. 4. Chronic degenerative disk disease. 5. Bipolar disorder. PLAN: Her regular medications has been resumed. We will monitor her blood sugar. Thank you for this consult and we will follow with you. Harry Cristina MD [facility] # [id number]
[2018-11-05] MEDS: QUEtiapine 150 mg XR Tab PO SCH (21:16)
[2018-11-06] MEDS: Insulin Lispro (humaLOG) MEDIUM Coverage SC SCH ×4 (08:04→21:12)
[2018-11-06] MEDS: Magnesium Oxide 400 mg Tab UD PO SCH ×2 (08:07→17:00)
--- NOTE | 2018-11-06 14:17 | PN ---
DATE: 11/06/2018 SUBJECTIVE: The patient is 73-year-old, seen and examined lying in bed wants to go home. She states she feel better, . PHYSICAL EXAMINATION: VITAL SIGNS: She is afebrile. Pulse 109, respiration 17 and blood pressure 139/76. LUNGS: Bilateral fair airflow. No rhonchi or crackle. HEART: S1 and S2, audible. ABDOMEN: Soft, obese and nontender. No rebound. No guarding. NEUROLOGIC: She is awake, alert and able to communicate. Ambulatory. EXTREMITIES: Bilateral legs, no edema. LABORATORY DATA: Blood sugar this morning was 111, afternoon was 208 . ASSESSMENT: 1. Bipolar disorder. 2. History of depression. 3. Non-insulin dependant diabetes. 4. Chronic degenerative disk disease. PLAN: We will continue the patient on current medication. She is on glimepiride 4 mg twice a day. We will continue her on Celexa. She is on Losartan. She is on metformin, we will continue that. We will followup the patient if she is discharged in office. Harry Cristina MD
--- NOTE | 2018-11-06 15:14 | PCM.PYCHPN ---
Psychiatric Progress Note - Psychiatric Progress Note Patient seen today, length of contact: 30 minutes Patient Chief Complaint: "I know you want me to stay here forever, you will never let me go, I do not bother anyone, nobody bothers me, I am doing just fine, I should of gone to my own psychiatrist, I know how to go to the bank, I know how to go to the doctors, I have grades 1 thru 6 home teacher waiting for me, you don't want me to go, you want me to stay for a month...I want to go home. You let everyone else go home........" Problems Identified/Issues Discussed: Risk/benefits and alternatives of medications discussed, suicide/ homicide prevention, past psychiatric h/o, current psychiatric symptoms, medical problems, risk/benefits and alternatives of medications, medications compliance, coping strategies, substance abuse h/o, relapse prevention, importance of follow up with psychiatrist and therapist, discharge plan. Medical Problems: See HPI Diagnostic Results: 11/04/18 16:40 11/04/18 16:40 Lab Results 11/06/18 11:13: POC Glucose (mg/dL) 208 H 11/06/18 07:26: POC Glucose (mg/dL) 111 H 11/05/18 21:05: POC Glucose (mg/dL) 180 H 11/05/18 16:18: POC Glucose (mg/dL) 206 H 11/05/18 11:03: POC Glucose (mg/dL) 338 H 11/05/18 07:40: RPR Nonreactive 11/05/18 07:40: TSH 3rd Generation 0.32 L 11/05/18 07:40: Fasting Glucose 100, Triglycerides 85, Cholesterol 143, LDL Cholesterol Direct 73, HDL Cholesterol 40 11/05/18 07:30: POC Glucose (mg/dL) 105 11/04/18 21:24: POC Glucose (mg/dL) 57 L 11/04/18 18:40: Urine Opiates Screen Negative, Urine Methadone Screen Negative, Ur Barbiturates Screen Negative, Ur Phencyclidine Scrn Negative, Ur Amphetamines Screen Negative, U Benzodiazepines Scrn Negative, U Oth Cocaine Metabols Negative, U Cannabinoids Screen Negative 11/04/18 18:40: Urine Color Light yellow, Urine Appearance Sl cloudy, Urine pH 6.0, Ur Specific [place] 1.010, Urine Protein Negative, Urine Glucose (UA) Negative, Urine Ketones Negative, Urine Blood Negative, Urine Nitrate Negative, Urine Bilirubin Negative, Urine Urobilinogen 0.2, Ur Leukocyte Esterase Moderate H, Urine RBC 0 - 2, Urine WBC 5 - 10 H, Ur Epithelial Cells 1 - 3, Urine Bacteria Trace 11/04/18 16:40: Alcohol, Quantitative < 10 11/04/18 16:40: Salicylates < 1 L, Acetaminophen < 10.0 L 11/04/18 16:40: Sodium 138, Potassium 3.9, Chloride 105, Carbon Dioxide 23, Anion Gap 14, BUN 19, Creatinine 0.7, Est GFR ( Amer) > 60, Est GFR (Non- Af Amer) > 60, Random Glucose 177 H, Calcium 9.3, Total Bilirubin 0.2, AST 15, ALT 7, Alkaline Phosphatase 71, Total Protein 7.2, Albumin 4.2, Globulin 3.0, Albumin/Globulin Ratio 1.4 11/04/18 16:40: WBC 6.2, RBC 3.92, Hgb 10.8 L, Hct 33.3 L, MCV 84.9, MCH 27.6, M CHC 32.4, RDW 14.1, Plt Count 352, MPV 9.2, Neut % (Auto) 61.7, Lymph % (Auto) 27.3, [place] % (Auto) 9.3 H, Eos % (Auto) 1.5, Baso % (Auto) 0.2, Lymph # (Auto) 1.7, [place] # (Auto) 0.6, Eos # (Auto) 0.1, Baso # (Auto) 0.01, Absolute Neuts (auto) 3.81 Vital Signs Temp Pulse Resp BP Pulse Ox 11/06/18 08:07 109 H 131/76 11/06/18 07:00 97.6 F 109 H 17 131/76 11/05/18 16:00 103 H 137/77 11/05/18 09:44 91 H 135/79 11/05/18 07:00 97.6 F 91 H 17 135/79 11/04/18 22:37 20 11/04/18 20:20 92 H 18 138/72 100 11/04/18 17:25 95 H 18 148/78 96 11/04/18 15:31 98.4 F 102 H 18 153/82 H 95 11/04/18 13:46 98.8 F 104 H 18 138/62 97 DSM 5 Symptoms Update: Shortly patient is a 73-year old female with reported history of schizoaffective disorder, bipolar type, multiple psychiatric admissions in the past, most recent was here in [facility] in 2017, currently under care or of [facility], patient was brought in by her family for evaluation and stabilization of disorganized thoughts, disorganized behavior, which were progressively worsening for past 2 weeks, inability to function, patient was calling different family members in the middle of the night, accusing family of stealing her phone, patient was calling her daughter in law "devil", screaming, cursing, patient requires further evaluation and stabilization and medications adjustment. pt was seen at the treatment team meeting, patient presented with acceptable personal hygiene, seems to be careless about her appearance, has olm[place]/uncombed hair, angry/irritable labile, patient said that she remembers this card writer hand but does not remember her name, then pt went tangents: "I know you want me to stay here forever, you will never let me go, I do not bother anyone, nobody bothers me, I am doing just fine, I should of gone to my own psychiatrist, I know how to go to the bank, I know how to go to the doctors, I have grades 1 thru 6 home teacher waiting for me, you don't want me to go, you want me to stay for a month...I want to go home. You let everyone else go home........" patient presented to be guarded, disorganized, paranoid, at the same time patient was saying that she did well, nothing was bothering her. As per collateral information from patient's family at ED, PES spoke with pt's [id number] Yesi and Son Devonte, at bedside. Pt's son states that patient is currently "putting on a good act" because she has been absolutely "horrible at home", but erratic behavior. Slandering the family, calling daughter in law the "devil". Not sleeping, calling daughter in [place] at 2am causing family to take her phone away. Screaming in the middle of the night, cursing. Screaming in Romansh (which family has never witnessed), pt. claims to speak in Romansh all the time. Rapidly declining, has been going on for a few weeks. family meeting requested. As per nursing staff patient was not able to sleep wondering in the unit. So far patient is compliant with her medications, no side effects observed or reported, aims 0, no EPS. Impression: As per history of schizophrenia versus schizoaffective disorder bipolar type Medication Change: Yes (Seroquel increased) Medical Record Reviewed: Yes Consults ordered or reviewed: Medical consult appreciated, please see notes for more detailed information. Mental Status Examination - Cognitive Function Orientation: Person, Place, Situation Memory: Impaired Attention: Poor Concentration: Poor Association: Loose Fund of Knowledge: WNL - Mood Mood: Depressed - Affect Affect: Flat - Formal Thought Process Formal Thought Process: Delusions, Paranoia - Suicidal Ideation Suicidal Ideation: No - Homicidal Ideation Homicidal Ideation: No Goal/Treatment Plan - Goal/Treatment Plan Need for Continued Stay: Remain at risks for inpatient hospitalization, Severe depression anxiety, Discharge may exacerbated symptoms, Severe functional impairment Progress Toward Problem(s) and Goals/Treatment Plan: Milieu/structure/supportive therapy SW consultation for discharge plan and social issues Med management: Medications were confirmed by patient pharmacy Seroquel was increased to 200 mg at the nighttime for psychosis Celexa was increased to :correction to my previous note not 50, but 15 mg daily for depression and anxiety Ativan as needed for anxiety Patient was seen by medical team for questionable urinary tract infection Collateral from family was obtained by PES worker in the emergency room Follow up on labs Will monitor closely Pt was educated about risk/benefits and alternatives of medications, coping strategies (safety plan, suicide prevention), relapse prevention, importance of follow up with psychiatrist and therapist, stay away from drugs/alcohol/smoking Estimated Date of D/C: 11/13/18
[2018-11-06] MEDS: QUEtiapine 200 mg XR Tab PO SCH (21:12)
[2018-11-07] MEDS: Insulin Lispro (humaLOG) MEDIUM Coverage SC SCH ×4 (07:57→21:21)
[2018-11-07] MEDS: Magnesium Oxide 400 mg Tab UD PO SCH ×2 (08:43→17:31)
--- NOTE | 2018-11-07 13:54 | PCM.PYCHPN ---
Psychiatric Progress Note - Psychiatric Progress Note Patient seen today, length of contact: 30 minutes Patient Chief Complaint: "I know you want me to stay here forever, I know you are having bad intent ........" Problems Identified/Issues Discussed: Risk/benefits and alternatives of medications discussed, suicide/ homicide prevention, past psychiatric h/o, current psychiatric symptoms, medical problems, risk/benefits and alternatives of medications, medications compliance, coping strategies, substance abuse h/o, relapse prevention, importance of follow up with psychiatrist and therapist, discharge plan. Medical Problems: See HPI Diagnostic Results: 11/04/18 16:40 11/04/18 16:40 Lab Results 11/06/18 11:13: POC Glucose (mg/dL) 208 H 11/06/18 07:26: POC Glucose (mg/dL) 111 H 11/05/18 21:05: POC Glucose (mg/dL) 180 H 11/05/18 16:18: POC Glucose (mg/dL) 206 H 11/05/18 11:03: POC Glucose (mg/dL) 338 H 11/05/18 07:40: RPR Nonreactive 11/05/18 07:40: TSH 3rd Generation 0.32 L 11/05/18 07:40: Fasting Glucose 100, Triglycerides 85, Cholesterol 143, LDL Cholesterol Direct 73, HDL Cholesterol 40 11/05/18 07:30: POC Glucose (mg/dL) 105 11/04/18 21:24: POC Glucose (mg/dL) 57 L 11/04/18 18:40: Urine Opiates Screen Negative, Urine Methadone Screen Negative, Ur Barbiturates Screen Negative, Ur Phencyclidine Scrn Negative, Ur Amphetamines Screen Negative, U Benzodiazepines Scrn Negative, U Oth Cocaine Metabols Negative, U Cannabinoids Screen Negative 11/04/18 18:40: Urine Color Light yellow, Urine Appearance Sl cloudy, Urine pH 6.0, Ur Specific [place] 1.010, Urine Protein Negative, Urine Glucose (UA) Negative, Urine Ketones Negative, Urine Blood Negative, Urine Nitrate Negative, Urine Bilirubin Negative, Urine Urobilinogen 0.2, Ur Leukocyte Esterase Moderate H, Urine RBC 0 - 2, Urine WBC 5 - 10 H, Ur Epithelial Cells 1 - 3, Urine Bacteria Trace 11/04/18 16:40: Alcohol, Quantitative < 10 11/04/18 16:40: Salicylates < 1 L, Acetaminophen < 10.0 L 11/04/18 16:40: Sodium 138, Potassium 3.9, Chloride 105, Carbon Dioxide 23, Anion Gap 14, BUN 19, Creatinine 0.7, Est GFR ( Amer) > 60, Est GFR (Non- Af Amer) > 60, Random Glucose 177 H, Calcium 9.3, Total Bilirubin 0.2, AST 15, ALT 7, Alkaline Phosphatase 71, Total Protein 7.2, Albumin 4.2, Globulin 3.0, Albumin/Globulin Ratio 1.4 11/04/18 16:40: WBC 6.2, RBC 3.92, Hgb 10.8 L, Hct 33.3 L, MCV 84.9, MCH 27.6, MCHC 32.4, RDW 14.1, Plt Count 352, MPV 9.2, Neut % (Auto) 61.7, Lymph % (Auto) 27.3, [place] % (Auto) 9.3 H, Eos % (Auto) 1.5, Baso % (Auto) 0.2, Lymph # (Auto) 1.7, [place] # (Auto) 0.6, Eos # (Auto) 0.1, Baso # (Auto) 0.01, Absolute Neuts (auto) 3.81 Vital Signs Temp Pulse Resp BP Pulse Ox 11/06/18 08:07 109 H 131/76 11/06/18 07:00 97.6 F 109 H 17 131/76 11/05/18 16:00 103 H 137/77 11/05/18 09:44 91 H 135/79 11/05/18 07:00 97.6 F 91 H 17 135/79 11/04/18 22:37 20 11/04/18 20:20 92 H 18 138/72 100 11/04/18 17:25 95 H 18 148/78 96 11/04/18 15:31 98.4 F 102 H 18 153/82 H 95 11/04/18 13:46 98.8 F 104 H 18 138/62 97 DSM 5 Symptoms Update: Shortly patient is a 73-year old female with reported history of schizoaffective disorder, bipolar type, multiple psychiatric admissions in the past, most recent was here in [facility] in 2017, currently under care or of [facility], patient was brought in by her family for evaluation and stabilization of disorganized thoughts, disorganized behavior, which were progressively worsening for past 2 weeks, inability to function, patient was calling different family members in the middle of the night, accusing family of stealing her phone, patient was calling her daughter in law "devil", screaming, cursing, patient requires further evaluation and stabilization and medications adjustment. pt was seen at the treatment team meeting with mental, patient presented with improved personal hygiene, less intrusive, less paranoid, as per nursing report patient slept through the night, no aggression, no agitation. Patient still has paranoia and feeling that this resume writer will be holding her in the hospital "for years, I know you have bad intent..." patient presented to be guarded, disorganized, paranoid, at the same time patient was saying that she did well, nothing was bothering her. Today patient asked about pill boxes, she reports at the time she feels confused and does not remember what medication she is taking. Patient was educated that at times pharmacy could give refilled medication boxes, patient verbalized understanding, patient seems to be interested. So far patient is compliant with her medications, no side effects observed or reported, aims 0, no EPS. Impression: As per history of schizophrenia versus schizoaffective disorder bipolar type Medication Change: Yes (Seroquel increased) Medical Record Reviewed: Yes Mental Status Examination - Cognitive Function Orientation: Person, Place, Situation Memory: Impaired Attention: Poor (Some improvement) Concentration: Poor (Some improvement) Association: Loose Fund of Knowledge: WNL - Mood Mood: Depressed ("I am fine, nothing is bothering me") - Affect Affect: Flat - Speech Speech: Appropriate - Formal Thought Process Formal Thought Process: Delusions, Paranoia - Suicidal Ideation Suicidal Ideation: No - Homicidal Ideation Homicidal Ideation: No Goal/Treatment Plan - Goal/Treatment Plan Need for Continued Stay: Remain at risks for inpatient hospitalization, Severe depression anxiety, Discharge may exacerbated symptoms, Severe functional impairment Progress Toward Problem(s) and Goals/Treatment Plan: Milieu/structure/supportive therapy SW consultation for discharge plan and social issues Med management: Medications were confirmed by patient pharmacy [id number] mg at the nighttime for psychosis Celexa 15 mg daily for depression and anxiety Ativan as needed for anxiety Patient was seen by medical team for questionable urinary tract infection Collateral from family was obtained by PES worker in the emergency room Family meeting was requested Follow up on labs Will monitor closely Pt was educated about risk/benefits and alternatives of medications, coping strategies (safety plan, suicide prevention), relapse prevention, importance of follow up with psychiatrist and therapist, stay away from drugs/alcohol/smoking Estimated Date of D/C: 11/13/18
--- NOTE | 2018-11-07 15:31 | PN ---
DATE: 11/07/2018 SUBJECTIVE: The patient is 73-year-old, seen and examined. Sitting in chair. She states that I feel pretty good and I can go home. She seem to be calm, cooperative. PHYSICAL EXAMINATION: VITAL SIGNS: She is afebrile. Pulse 93, respiration 19 and blood pressure 153/87. LUNGS: Bilateral fair airflow. No rhonchi or crackle. HEART: S1 and S2, audible. ABDOMEN: Soft and nontender. No rebound. No guarding. NEUROLOGIC: She is awake, alert, oriented and communicative. LABORATORY DATA: Blood sugar is 72 this morning, afternoon is 190. ASSESSMENT: 1. Bipolar disorder. 2. Anxiety disorder. 3. Chronic back pain. 4. Non-insulin dependant diabetes. 5. Hypertension. 6. Hyperlipidemia. PLAN: We will continue the patient on current medication. Blood sugar is being monitored. From medical point of view, the patient is stable, if need to be discharged. Harry Cristina MD
[2018-11-07] MEDS: QUEtiapine 200 mg XR Tab PO SCH (21:05)
[2018-11-08] MEDS: Magnesium Oxide 400 mg Tab UD PO SCH ×2 (09:03→17:21)
[2018-11-08] MEDS: Insulin Lispro (humaLOG) MEDIUM Coverage SC SCH ×4 (09:18→21:04)
--- NOTE | 2018-11-08 14:15 | PN ---
DATE: 11/08/2018 SUBJECTIVE: The patient is a 73-year-old, seen and examined, sitting in daycare, seems to be comfortable, seems to be very , not in any distress, sitting on top of bed, sitting on top of bed. The patient wants to go home. PHYSICAL EXAMINATION: VITAL SIGNS: She is afebrile. Pulse 90, respirations 17, blood pressure 115/62. LUNGS: Bilateral fair airflow. No rhonchi or crackles. HEART: S1 and S2 audible. ABDOMEN: Soft, nontender. No rebound. No guarding. NEUROLOGICAL: The patient is awake, alert, oriented, able to communicate. ASSESSMENT AND PLAN: Her blood sugar in the morning was running low, so I decreased her evening dose of Amaryl to 2 mg with dinner time and 4 mg before breakfast. Monitor her blood sugar. Psych medication will be adjusted by psychiatrist. Harry Cristina MD
--- NOTE | 2018-11-08 15:06 | PCM.PYCHPN ---
Psychiatric Progress Note - Psychiatric Progress Note Patient seen today, length of contact: 30 minutes Patient Chief Complaint: "why you are discharging everyone, but me, I came here the earliest..." Problems Identified/Issues Discussed: Risk/benefits and alternatives of medications discussed, suicide/ homicide prevention, past psychiatric h/o, current psychiatric symptoms, medical problems, risk/benefits and alternatives of medications, medications compliance, coping strategies, substance abuse h/o, relapse prevention, importance of follow up with psychiatrist and therapist, discharge plan. Medical Problems: See HPI Diagnostic Results: 11/04/18 16:40 11/04/18 16:40 Lab Results 11/06/18 11:13: POC Glucose (mg/dL) 208 H 11/06/18 07:26: POC Glucose (mg/dL) 111 H 11/05/18 21:05: POC Glucose (mg/dL) 180 H 11/05/18 16:18: POC Glucose (mg/dL) 206 H 11/05/18 11:03: POC Glucose (mg/dL) 338 H 11/05/18 07:40: RPR Nonreactive 11/05/18 07:40: TSH 3rd Generation 0.32 L 11/05/18 07:40: Fasting Glucose 100, Triglycerides 85, Cholesterol 143, LDL Cholesterol Direct 73, HDL Cholesterol 40 11/05/18 07:30: POC Glucose (mg/dL) 105 11/04/18 21:24: POC Glucose (mg/dL) 57 L 11/04/18 18:40: Urine Opiates Screen Negative, Urine Methadone Screen Negative, Ur Barbiturates Screen Negative, Ur Phencyclidine Scrn Negative, Ur Amphetamines Screen Negative, U Benzodiazepines Scrn Negative, U Oth Cocaine Metabols Negative, U Cannabinoids Screen Negative 11/04/18 18:40: Urine Color Light yellow, Urine Appearance Sl cloudy, Urine pH 6.0, Ur Specific [place] 1.010, Urine Protein Negative, Urine Glucose (UA) Negative, Urine Ketones Negative, Urine Blood Negative, Urine Nitrate Negative, Urine Bilirubin Negative, Urine Urobilinogen 0.2, Ur Leukocyte Esterase Moderate H, Urine RBC 0 - 2, Urine WBC 5 - 10 H, Ur Epithelial Cells 1 - 3, Urine Bacteria Trace 11/04/18 16:40: Alcohol, Quantitative < 10 11/04/18 16:40: Salicylates < 1 L, Acetaminophen < 10.0 L 11/04/18 16:40: Sodium 138, Potassium 3.9, Chloride 105, Carbon Dioxide 23, Anion Gap 14, BUN 19, Creatinine 0.7, Est GFR ( Amer) > 60, Est GFR (Non- Af Amer) > 60, Random Glucose 177 H, Calcium 9.3, Total Bilirubin 0.2, AST 15, ALT 7, Alkaline Phosphatase 71, Total Protein 7.2, Albumin 4.2, Globulin 3.0, Albumin/Globulin Ratio 1.4 11/04/18 16:40: WBC 6.2, RBC 3.92, Hgb 10.8 L, Hct 33.3 L, MCV 84.9, MCH 27.6, MCHC 32.4, RDW 14.1, Plt Count 352, MPV 9.2, Neut % (Auto) 61.7, Lymph % (Auto) 27.3, [place] % (Auto) 9.3 H, Eos % (Auto) 1.5, Baso % (Auto) 0.2, Lymph # (Auto) 1.7, [place] # (Auto) 0.6, Eos # (Auto) 0.1, Baso # (Auto) 0.01, Absolute Neuts (auto) 3.81 Vital Signs Temp Pulse Resp BP Pulse Ox 11/06/18 08:07 109 H 131/76 11/06/18 07:00 97.6 F 109 H 17 131/76 11/05/18 16:00 103 H 137/77 11/05/18 09:44 91 H 135/79 11/05/18 07:00 97.6 F 91 H 17 135/79 11/04/18 22:37 20 11/04/18 20:20 92 H 18 138/72 100 11/04/18 17:25 95 H 18 148/78 96 11/04/18 15:31 98.4 F 102 H 18 153/82 H 95 11/04/18 13:46 98.8 F 104 H 18 138/62 97 DSM 5 Symptoms Update: Shortly patient is a 73-year old female with reported history of schizoaffective disorder, bipolar type, multiple psychiatric admissions in the past, most recent was here in [facility] in 2017, currently under care or of [facility], patient was brought in by her family for evaluation and stabilization of disorganized thoughts, disorganized behavior, which were progressively worsening for past 2 weeks, inability to function, patient was calling different family members in the middle of the night, accusing family of stealing her phone, patient was calling her daughter in law "devil", screaming, cursing, patient requires further evaluation and stabilization and medications adjustment. pt was seen next to the nursing station, pt appeared to be irritable, angry and unsatisfied, pt was keep asking why this insurance underwriter is discharging everyone but her. pt is less intrusive, less paranoid, as per report pt slept through the night, no agitation, no aggression. patient presented to be guarded, mildly paranoid, at the same time patient was saying that she did well, nothing was bothering her. So far patient is compliant with her medications, no side effects observed or reported, aims 0, no EPS. family meeting scheduled on SundayNovember 12. as per collaterals, pt decompensated after her nephew moved in to her place. Impression: As per history of schizophrenia versus schizoaffective disorder bipolar type Medication Change: Yes (Seroquel increased) Medical Record Reviewed: Yes Mental Status Examination - Cognitive Function Orientation: Person, Place, Situation Memory: Impaired Attention: Poor (Some improvement) Concentration: Poor (Some improvement) Association: Loose Fund of Knowledge: WNL - Mood Mood: Depressed ("I am fine, nothing is bothering me") - Affect Affect: Flat - Speech Speech: Appropriate - Formal Thought Process Formal Thought Process: Delusions, Paranoia - Suicidal Ideation Suicidal Ideation: No - Homicidal Ideation Homicidal Ideation: No Goal/Treatment Plan - Goal/Treatment Plan Need for Continued Stay: Remain at risks for inpatient hospitalization, Severe depression anxiety, Discharge may exacerbated symptoms, Severe functional impairment Progress Toward Problem(s) and Goals/Treatment Plan: Milieu/structure/supportive therapy SW consultation for discharge plan and social issues Med management: Medications were confirmed by patient pharmacy [id number] mg at the nighttime for psychosis Celexa 15 mg daily for depression and anxiety Ativan as needed for anxiety Patient was seen by medical team for questionable urinary tract infection Collateral from family was obtained by PES worker in the emergency room Family meeting was requested Follow up on labs Will monitor closely Pt was educated about risk/benefits and alternatives of medications, coping strategies (safety plan, suicide prevention), relapse prevention, importance of follow up with psychiatrist and therapist, stay away from drugs/alcohol/smoking Estimated Date of D/C: 11/13/18
[2018-11-08] MEDS: QUEtiapine 200 mg XR Tab PO SCH (21:14)
[2018-11-09] MEDS: Magnesium Oxide 400 mg Tab UD PO SCH ×2 (08:21→17:51)
[2018-11-09] MEDS: Insulin Lispro (humaLOG) MEDIUM Coverage SC SCH ×4 (09:06→22:12)
--- NOTE | 2018-11-09 14:08 | PN ---
DATE: 11/09/2018 SUBJECTIVE: The patient is 73 years old, seen and examined, wants to go home. She states she feels much better. PHYSICAL EXAMINATION: VITAL SIGNS: She is afebrile, pulse 87, respirations 19, and blood pressure 101/58. LUNGS: Bilateral fair airflow. No rhonchi or crackles. HEART: S1 and S2 audible. ABDOMEN: Soft and nontender. No rebound. No guarding. NEUROLOGIC: The patient is awake and alert, able to communicate. LABORATORY DATA: Blood sugar this morning was 97, followup is 172. ASSESSMENT: 1. Bipolar disorder. 2. [id number] diabetes. 3. Hypertension. 4. Hyperlipidemia. 5. Degenerative disk disease. PLAN: We will continue to monitor blood sugar. She is being monitored by psychiatrist and medication is being adjusted. Possible discharge plan on Sunday. Harry Cristina MD
--- NOTE | 2018-11-09 14:14 | PCM.PYCHPN ---
Psychiatric Progress Note - Psychiatric Progress Note Patient seen today, length of contact: 30 minutes Patient Chief Complaint: "I bother nobody, I am feeling good, I am taking my medications, I want to go home" Problems Identified/Issues Discussed: Risk/benefits and alternatives of medications discussed, suicide/ homicide prevention, past psychiatric h/o, current psychiatric symptoms, medical problems, risk/benefits and alternatives of medications, medications compliance, coping strategies, substance abuse h/o, relapse prevention, importance of follow up with psychiatrist and therapist, discharge plan. Medical Problems: See HPI Diagnostic Results: 11/04/18 16:40 11/04/18 16:40 Lab Results 11/06/18 11:13: POC Glucose (mg/dL) 208 H 11/06/18 07:26: POC Glucose (mg/dL) 111 H 11/05/18 21:05: POC Glucose (mg/dL) 180 H 11/05/18 16:18: POC Glucose (mg/dL) 206 H 11/05/18 11:03: POC Glucose (mg/dL) 338 H 11/05/18 07:40: RPR Nonreactive 11/05/18 07:40: TSH 3rd Generation 0.32 L 11/05/18 07:40: Fasting Glucose 100, Triglycerides 85, Cholesterol 143, LDL Cholesterol Direct 73, HDL Cholesterol 40 11/05/18 07:30: POC Glucose (mg/dL) 105 11/04/18 21:24: POC Glucose (mg/dL) 57 L 11/04/18 18:40: Urine Opiates Screen Negative, Urine Methadone Screen Negative, Ur Barbiturates Screen Negative, Ur Phencyclidine Scrn Negative, Ur Amphetamines Screen Negative, U Benzodiazepines Scrn Negative, U Oth Cocaine Metabols Negative, U Cannabinoids Screen Negative 11/04/18 18:40: Urine Color Light yellow, Urine Appearance Sl cloudy, Urine pH 6.0, Ur Specific [place] 1.010, Urine Protein Negative, Urine Glucose (UA) N egative, Urine Ketones Negative, Urine Blood Negative, Urine Nitrate Negative, Urine Bilirubin Negative, Urine Urobilinogen 0.2, Ur Leukocyte Esterase Moderate H, Urine RBC 0 - 2, Urine WBC 5 - 10 H, Ur Epithelial Cells 1 - 3, Urine Bacteria Trace 11/04/18 16:40: Alcohol, Quantitative < 10 11/04/18 16:40: Salicylates < 1 L, Acetaminophen < 10.0 L 11/04/18 16:40: Sodium 138, Potassium 3.9, Chloride 105, Carbon Dioxide 23, Anion Gap 14, BUN 19, Creatinine 0.7, Est GFR ( Amer) > 60, Est GFR (Non- Af Amer) > 60, Random Glucose 177 H, Calcium 9.3, Total Bilirubin 0.2, AST 15, ALT 7, Alkaline Phosphatase 71, Total Protein 7.2, Albumin 4.2, Globulin 3.0, Albumin/Globulin Ratio 1.4 11/04/18 16:40: WBC 6.2, RBC 3.92, Hgb 10.8 L, Hct 33.3 L, MCV 84.9, MCH 27.6, MCHC 32.4, RDW 14.1, Plt Count 352, MPV 9.2, Neut % (Auto) 61.7, Lymph % (Auto) 27.3, [place] % (Auto) 9.3 H, Eos % (Auto) 1.5, Baso % (Auto) 0.2, Lymph # (Auto) 1.7, [place] # (Auto) 0.6, Eos # (Auto) 0.1, Baso # (Auto) 0.01, Absolute Neuts (auto) 3.81 Vital Signs Temp Pulse Resp BP Pulse Ox 11/06/18 08:07 109 H 131/76 11/06/18 07:00 97.6 F 109 H 17 131/76 11/05/18 16:00 103 H 137/77 11/05/18 09:44 91 H 135/79 11/05/18 07:00 97.6 F 91 H 17 135/79 11/04/18 22:37 20 11/04/18 20:20 92 H 18 138/72 100 11/04/18 17:25 95 H 18 148/78 96 11/04/18 15:31 98.4 F 102 H 18 153/82 H 95 11/04/18 13:46 98.8 F 104 H 18 138/62 97 DSM 5 Symptoms Update: Shortly patient is a 73-year old female with reported history of schizoaffective disorder, bipolar type, multiple psychiatric admissions in the past, most recent was here in [facility] in 2017, currently under care or of [facility], patient was brought in by her family for evaluation and stabilization of disorganized thoughts, disorganized behavior, which were progressively worsening for past 2 weeks, inability to function, patient was calling different family members in the middle of the night, accusing family of stealing her phone, patient was calling her daughter in law "devil", screaming, cursing, patient requires further evaluation and stabilization and medications adjustment. pt was seen in her room, patient presented to be mildly irritable, was trying presenting better than she actually is, as per nursing report patient was accusing her [id number] of stealing of her money, no evidence for that, this writer technical publications asked patient about her statement, patient replied "I bother nobody, I am feeling good, I am taking my medications, I want to go home". patient presented to be guarded, mildly paranoid,. So far patient is compliant with her medications, no side effects observed or reported, aims 0, no EPS. family meeting scheduled on SundayNovember 12. as per collaterals, pt decompensated after her nephew moved in to her place. Impression: As per history of schizophrenia versus schizoaffective disorder bipolar type Medication Change: Yes (Seroquel increased) Medical Record Reviewed: Yes Consults ordered or reviewed: Medical consult appreciated, please see notes for more detailed information. Mental Status Examination - Cognitive Function Orientation: Person, Place, Situation Memory: Impaired Attention: Poor (Some improvement) Concentration: Poor (Some improvement) Association: Loose Fund of Knowledge: WNL - Mood Mood: Depressed ("I am fine, nothing is bothering me") - Affect Affect: Flat - Speech Speech: Appropriate - Formal Thought Process Formal Thought Process: Delusions, Paranoia - Suicidal Ideation Suicidal Ideation: No - Homicidal Ideation Homicidal Ideation: No Goal/Treatment Plan - Goal/Treatment Plan Need for Continued Stay: Remain at risks for inpatient hospitalization, Severe depression anxiety, Discharge may exacerbated symptoms, Severe functional impairment Progress Toward Problem(s) and Goals/Treatment Plan: Milieu/structure/supportive therapy SW consultation for discharge plan and social issues Med management: Medications were confirmed by patient pharmacy Seroquel 300 mg at the nighttime for psychosis Celexa 15 mg daily for depression and anxiety Ativan as needed for anxiety Patient was seen by medical team for questionable urinary tract infection Collateral from family was obtained by PES worker in the emergency room Family meeting was requested Follow up on labs Will monitor closely Pt was educated about risk/benefits and alternatives of medications, coping strategies (safety plan, suicide prevention), relapse prevention, importance of follow up with psychiatrist and therapist, stay away from drugs/alcohol/smoking Estimated Date of D/C: 11/13/18
[2018-11-09] MEDS: QUEtiapine 300 mg XR Tab PO SCH (21:32)
[2018-11-10] MEDS: Insulin Lispro (humaLOG) MEDIUM Coverage SC SCH ×4 (09:34→21:22)
[2018-11-10] MEDS: Magnesium Oxide 400 mg Tab UD PO SCH ×2 (09:53→17:32)
--- NOTE | 2018-11-10 12:23 | PCM.PYCHPN ---
Psychiatric Progress Note - Psychiatric Progress Note Patient seen today, length of contact: 30 minutes Patient Chief Complaint: "I feel better, I feel happy that my grandson will be not living with me..., he was stressing me out.." Problems Identified/Issues Discussed: Risk/benefits and alternatives of medications discussed, suicide/ homicide prevention, past psychiatric h/o, current psychiatric symptoms, medical problems, risk/benefits and alternatives of medications, medications compliance, coping strategies, substance abuse h/o, relapse prevention, importance of follow up with psychiatrist and therapist, discharge plan. Medical Problems: See HPI Diagnostic Results: 11/04/18 16:40 11/04/18 16:40 Lab Results 11/06/18 11:13: POC Glucose (mg/dL) 208 H 11/06/18 07:26: POC Glucose (mg/dL) 111 H 11/05/18 21:05: POC Glucose (mg/dL) 180 H 11/05/18 16:18: POC Glucose (mg/dL) 206 H 11/05/18 11:03: POC Glucose (mg/dL) 338 H 11/05/18 07:40: RPR Nonreactive 11/05/18 07:40: TSH 3rd Generation 0.32 L 11/05/18 07:40: Fasting Glucose 100, Triglycerides 85, Cholesterol 143, LDL Cholesterol Direct 73, HDL Cholesterol 40 11/05/18 07:30: POC Glucose (mg/dL) 105 11/04/18 21:24: POC Glucose (mg/dL) 57 L 11/04/18 18:40: Urine Opiates Screen Negative, Urine Methadone Screen Negative, Ur Barbiturates Screen Negative, Ur Phencyclidine Scrn Negative, Ur Amphetamines Screen Negative, U Benzodiazepines Scrn Negative, U Oth Cocaine Metabols N egative, U Cannabinoids Screen Negative 11/04/18 18:40: Urine Color Light yellow, Urine Appearance Sl cloudy, Urine pH 6.0, Ur Specific [place] 1.010, Urine Protein Negative, Urine Glucose (UA) Negative, Urine Ketones Negative, Urine Blood Negative, Urine Nitrate Negative, Urine Bilirubin Negative, Urine Urobilinogen 0.2, Ur Leukocyte Esterase Moderate H, Urine RBC 0 - 2, Urine WBC 5 - 10 H, Ur Epithelial Cells 1 - 3, Urine Bacteria Trace 11/04/18 16:40: Alcohol, Quantitative < 10 11/04/18 16:40: Salicylates < 1 L, Acetaminophen < 10.0 L 11/04/18 16:40: Sodium 138, Potassium 3.9, Chloride 105, Carbon Dioxide 23, Anion Gap 14, BUN 19, Creatinine 0.7, Est GFR ( Amer) > 60, Est GFR (Non- Af Amer) > 60, Random Glucose 177 H, Calcium 9.3, Total Bilirubin 0.2, AST 15, ALT 7, Alkaline Phosphatase 71, Total Protein 7.2, Albumin 4.2, Globulin 3.0, Albumin/Globulin Ratio 1.4 11/04/18 16:40: WBC 6.2, RBC 3.92, Hgb 10.8 L, Hct 33.3 L, MCV 84.9, MCH 27.6, MCHC 32.4, RDW 14.1, Plt Count 352, MPV 9.2, Neut % (Auto) 61.7, Lymph % (Auto) 27.3, [place] % (Auto) 9.3 H, Eos % (Auto) 1.5, Baso % (Auto) 0.2, Lymph # (Auto) 1.7, [place] # (Auto) 0.6, Eos # (Auto) 0.1, Baso # (Auto) 0.01, Absolute Neuts (auto) 3.81 Vital Signs Temp Pulse Resp BP Pulse Ox 11/06/18 08:07 109 H 131/76 11/06/18 07:00 97.6 F 109 H 17 131/76 11/05/18 16:00 103 H 137/77 11/05/18 09:44 91 H 135/79 11/05/18 07:00 97.6 F 91 H 17 135/79 11/04/18 22:37 20 11/04/18 20:20 92 H 18 138/72 100 11/04/18 17:25 95 H 18 148/78 96 11/04/18 15:31 98.4 F 102 H 18 153/82 H 95 11/04/18 13:46 98.8 F 104 H 18 138/62 97 Temp Pulse Resp BP Pulse Ox 97.7 F 87 18 111/66 100 11/10/18 07:00 11/10/18 09:54 11/10/18 07:00 11/10/18 09:54 11/04/18 20:20 DSM 5 Symptoms Update: Shortly patient is a 73-year old female with reported history of schizoaffective disorder, bipolar type, multiple psychiatric admissions in the past, most recent was here in [facility] in 2017, currently under care or of [facility], patient was brought in by her family for evaluation and stabilization of disorganized thoughts, disorganized behavior, which were progressively worsening for past 2 weeks, inability to function, patient was calling different family members in the middle of the night, accusing family of stealing her phone, patient was calling her daughter in law "devil", screaming, cursing, patient requires further evaluation and stabilization and medications adjustment. pt was seen next to the nursing station, today was the first day when pt presented with reactive affect, pt was smiling, less paranoid, more talkative. pt said that her grandson/nephew who used to live with her was removed from the house "my daughter in law said, I feel so happy, he was stressing me out, he is just a teenager..". 11/09/18 as per nursing report patient was accusing her [id number] of stealing of her money, no evidence for that. So far patient is compliant with her medications, no side effects observed or reported, aims 0, no EPS. family meeting scheduled on SundayNovember 12. Impression: As per history of schizophrenia versus schizoaffective disorder bipolar type Medication Change: Yes (Seroquel increased 11/09/18) Medical Record Reviewed: Yes Consults ordered or reviewed: Medical consult appreciated, please see notes for more detailed information. Mental Status Examination - Cognitive Function Orientation: Person, Place, Situation Memory: Impaired Attention: Poor (Some improvement) Concentration: Poor (Some improvement) Association: Loose Fund of Knowledge: WNL - Mood Mood: Depressed ("I am fine, nothing is bothering me") - Affect Affect: Flat - Speech Speech: Appropriate - Formal Thought Process Formal Thought Process: Delusions (improving), Paranoia (improving) - Suicidal Ideation Suicidal Ideation: No - Homicidal Ideation Homicidal Ideation: No Goal/Treatment Plan - Goal/Treatment Plan Need for Continued Stay: Remain at risks for inpatient hospitalization, Severe depression anxiety, Discharge may exacerbated symptoms, Severe functional impairment Progress Toward Problem(s) and Goals/Treatment Plan: Milieu/structure/supportive therapy SW consultation for discharge plan and social issues Med management: Medications were confirmed by patient pharmacy Seroquel 300 mg at the nighttime for psychosis Celexa 15 mg daily for depression and anxiety Ativan as needed for anxiety Patient was seen by medical team for questionable urinary tract infection Collateral from family was obtained by PES worker in the emergency room Family meeting was requested Follow up on labs Will monitor closely Pt was educated about risk/benefits and alternatives of medications, coping strategies (safety plan, suicide prevention), relapse prevention, importance of follow up with psychiatrist and therapist, stay away from drugs/alcohol/smoking Estimated Date of D/C: 11/13/18
[2018-11-10] MEDS: QUEtiapine 300 mg XR Tab PO SCH (21:59)
[2018-11-11] MEDS: Insulin Lispro (humaLOG) MEDIUM Coverage SC SCH ×4 (09:00→21:18)
[2018-11-11] MEDS: Magnesium Oxide 400 mg Tab UD PO SCH ×2 (09:26→17:40)
--- NOTE | 2018-11-11 14:58 | PN ---
DATE: 11/11/2018 SUBJECTIVE: The patient is 73-year-old, sitting in chair, seems to be comfortable. Very cooperative, not agitated at all. Eating and tolerating. No complaints. PHYSICAL EXAMINATION: VITAL SIGNS: She is afebrile. Pulse 90, respiration 18 and blood pressure 156/81. LUNGS: Bilateral fair airflow. No rhonchi or crackle. HEART: S1 and S2, audible. ABDOMEN: Soft and nontender. No rebound. No guarding. NEUROLOGIC: She is awake, alert and able to communicate. Ambulatory. EXTREMITIES: Bilateral leg no edema. LABORATORY DATA: Her morning sugar is 79. Prior to lunch is 183. ASSESSMENT: 1. History of bipolar disorder. 2. Hypertension. 3. Non-insulin dependant diabetes. 4. Degenerative disk disease. 5. Mild dementia. PLAN: At this point, the patient's blood sugar is under descent control. We will continue her glimepiride 2 mg before dinner and 4 mg before breakfast. She is on losartan and Flomax. We will continue on metformin. Monitor blood sugar. We will followup the patient in a.m. Harry Cristina MD
--- NOTE | 2018-11-11 16:00 | PCM.PYCHPN ---
Psychiatric Progress Note - Psychiatric Progress Note Patient seen today, length of contact: 30 minutes Patient Chief Complaint: "I feel better, I hope to go home tomorrow.." Problems Identified/Issues Discussed: Risk/benefits and alternatives of medications discussed, suicide/ homicide prevention, past psychiatric h/o, current psychiatric symptoms, medical problems, risk/benefits and alternatives of medications, medications compliance, coping strategies, substance abuse h/o, relapse prevention, importance of follow up with psychiatrist and therapist, discharge plan. Medical Problems: See HPI Diagnostic Results: 11/04/18 16:40 11/04/18 16:40 Lab Results 11/06/18 11:13: POC Glucose (mg/dL) 208 H 11/06/18 07:26: POC Glucose (mg/dL) 111 H 11/05/18 21:05: POC Glucose (mg/dL) 180 H 11/05/18 16:18: POC Glucose (mg/dL) 206 H 11/05/18 11:03: POC Glucose (mg/dL) 338 H 11/05/18 07:40: RPR Nonreactive 11/05/18 07:40: TSH 3rd Generation 0.32 L 11/05/18 07:40: Fasting Glucose 100, Triglycerides 85, Cholesterol 143, LDL Cholesterol Direct 73, HDL Cholesterol 40 11/05/18 07:30: POC Glucose (mg/dL) 105 11/04/18 21:24: POC Glucose (mg/dL) 57 L 11/04/18 18:40: Urine Opiates Screen Negative, Urine Methadone Screen Negative, Ur Barbiturates Screen Negative, Ur Phencyclidine Scrn Negative, Ur Amphetamines Screen Negative, U Benzodiazepines Scrn Negative, U Oth Cocaine Metabols Negative, U Cannabinoids Screen Negative 11/04/18 18:40: Urine Color Light yellow, Urine Appearance Sl cloudy, Urine pH 6.0, Ur Specific [place] 1.010, Urine Protein Negative, Urine Glucose (UA) Negative, Urine Ketones Negative, Urine Blood Negative, Urine Nitrate Negative, Urine Bilirubin Negative, Urine Urobilinogen 0.2, Ur Leukocyte Esterase Moderate H, Urine RBC 0 - 2, Urine WBC 5 - 10 H, Ur Epithelial Cells 1 - 3, Urine Bacteria Trace 11/04/18 16:40: Alcohol, Quantitative < 10 11/04/18 16:40: Salicylates < 1 L, Acetaminophen < 10.0 L 11/04/18 16:40: Sodium 138, Potassium 3.9, Chloride 105, Carbon Dioxide 23, Anion Gap 14, BUN 19, Creatinine 0.7, Est GFR ( Amer) > 60, Est GFR (Non- Af Amer) > 60, Random Glucose 177 H, Calcium 9.3, Total Bilirubin 0.2, AST 15, ALT 7, Alkaline Phosphatase 71, Total Protein 7.2, Albumin 4.2, Globulin 3.0, Albumin/Globulin Ratio 1.4 11/04/18 16:40: WBC 6.2, RBC 3.92, Hgb 10.8 L, Hct 33.3 L, MCV 84.9, MCH 27.6, MCHC 32.4, RDW 14.1, Plt Count 352, MPV 9.2, Neut % (Auto) 61.7, Lymph % (Auto) 27.3, [place] % (Auto) 9.3 H, Eos % (Auto) 1.5, Baso % (Auto) 0.2, Lymph # (Auto) 1.7, [place] # (Auto) 0.6, Eos # (Auto) 0.1, Baso # (Auto) 0.01, Absolute Neuts (auto) 3.81 Vital Signs Temp Pulse Resp BP Pulse Ox 11/06/18 08:07 109 H 131/76 11/06/18 07:00 97.6 F 109 H 17 131/76 11/05/18 16:00 103 H 137/77 11/05/18 09:44 91 H 135/79 11/05/18 07:00 97.6 F 91 H 17 135/79 11/04/18 22:37 20 11/04/18 20:20 92 H 18 138/72 100 11/04/18 17:25 95 H 18 148/78 96 11/04/18 15:31 98.4 F 102 H 18 153/82 H 95 11/04/18 13:46 98.8 F 104 H 18 138/62 97 Temp Pulse Resp BP Pulse Ox 97.7 F 87 18 111/66 100 11/10/18 07:00 11/10/18 09:54 11/10/18 07:00 11/10/18 09:54 11/04/18 20:20 Temp Pulse Resp BP Pulse Ox 97.7 F 98 H 18 136/81 100 11/10/18 07:00 11/11/18 09:23 11/10/18 07:00 11/11/18 09:23 11/04/18 20:20 DSM 5 Symptoms Update: Shortly patient is a 73-year old female with reported history of schizoaffective disorder, bipolar type, multiple psychiatric admissions in the past, most recent was here in [facility] in 2017, currently under ca re or of [facility], patient was brought in by her family for evaluation and stabilization of disorganized thoughts, disorganized behavior, which were progressively worsening for past 2 weeks, inability to function, patient was calling different family members in the middle of the night, accusing family of stealing her phone, patient was calling her daughter in law "devil", screaming, cursing, patient requires further evaluation and stabilization and medications adjustment. pt was seen next to the nursing station, today was the first day when pt presented with reactive affect, pt was smiling, less paranoid, more talkative. pt said that her grandson/nephew who used to live with her was removed from the house "my daughter in law said, I feel so happy, he was stressing me out, he is just a teenager..". 11/09/18 as per nursing report patient was accusing her [id number] of stealing of her money, no evidence for that. So far patient is compliant with her medications, no side effects observed or reported, aims 0, no EPS. family meeting scheduled on SundayNovember 12. Impression: As per history of schizophrenia versus schizoaffective disorder bipolar type Medication Change: Yes (Seroquel increased 11/09/18) Medical Record Reviewed: Yes Consults ordered or reviewed: Medical consult appreciated, please see notes for more detailed information. Mental Status Examination - Cognitive Function Orientation: Person, Place, Situation Memory: Impaired Attention: Poor (Some improvement) Concentration: Poor (Some improvement) Association: Loose Fund of Knowledge: WNL - Mood Mood: Depressed ("I am fine, nothing is bothering me") - Affect Affect: Flat - Speech Speech: Appropriate - Formal Thought Process Formal Thought Process: Delusions (improving), Paranoia (improving) - Suicidal Ideation Suicidal Ideation: No - Homicidal Ideation Homicidal Ideation: No Goal/Treatment Plan - Goal/Treatment Plan Need for Continued Stay: Remain at risks for inpatient hospitalization, Severe depression anxiety, Discharge may exacerbated symptoms, Severe functional impairment Progress Toward Problem(s) and Goals/Treatment Plan: Milieu/structure/supportive therapy SW consultation for discharge plan and social issues Med management: Medications were confirmed by patient pharmacy Seroquel 300 mg at the nighttime for psychosis Celexa 20 mg daily for depression and anxiety Ativan as needed for anxiety Patient was seen by medical team for questionable urinary tract infection Collateral from family was obtained by PES worker in the emergency room Family meeting was requested Follow up on labs Will monitor closely Pt was educated about risk/benefits and alternatives of medications, coping strategies (safety plan, suicide prevention), relapse prevention, importance of follow up with psychiatrist and therapist, stay away from drugs/alcohol/smoking Family scheduled for 11/12/2018 at 11:00 AM Estimated Date of D/C: 11/13/18
[2018-11-11 16:17] VITALS: RESP 16
[2018-11-11] MEDS: QUEtiapine 300 mg XR Tab PO SCH (21:22)
[2018-11-12 07:13] VITALS: TEMP 98; O2SAT 93
[2018-11-12] MEDS: Insulin Lispro (humaLOG) MEDIUM Coverage SC SCH ×2 (08:00→11:30)
[2018-11-12] MEDS: Magnesium Oxide 400 mg Tab UD PO SCH (10:12)
[2018-11-12 10:31] VITALS: BP 112/69; PULSE 97
--- NOTE | 2018-11-12 15:25 | PCM.PYCHDC ---
Mental Status Examination - Mental Status Examination Orientation: Person, Place, Situation, Time Memory: Intact Mood: Neutral Affect: Broad (Mood congruent) Speech: Appropriate (Times repetitive) Attention: Poor (Much improved) Concentration: Poor (Much improved) Association: WNL Fund of Knowledge: WNL Formal Thought Process: Circumstantial (Her symptoms are chronic) Description of patient's judgement and insight: Pt has improved insight into mental and medical illness, pt was compliant with medications and unit rules and regulations, pt was attending therapy groups, was calm, cooperative, socially appropriate, no behavioral incidents, no agitation, no aggression. Psychotic Thoughts and Behaviors: Pt denied v/a/t hallucinations, denied paranoid ideations, pt does not appear to be psychotic, and thought process is goal directed. Suicidal Ideation: No Current Homicidal Ideation?: No Plan: pt adamantly denied thoughts of harming self or others denied intent or plan. Discharge Summary - Discharge Note Reason for Hospitalization: Patient was admitted to the psychiatric inpatient unit for evaluation and stabilization of disorganized thoughts, disorganized behavior, delusions, inability to function, erratic behavior, not sleeping, accusing family of stealing her phone. Psychiatric History (includes Medical, Family, Personal Hx): See HPI Laboratory Data: Abnormal Lab Results 11/11/18 11/11/18 11/12/18 16:15 20:59 07:21 POC Glucose (mg/dL) 102 95 71 11/12/18 11:13 POC Glucose (mg/dL) 222 H Consultations:: List each consultation separately and include: 1. Reason for request. 2. Findings. 3. Follow-up Consultations: Medical consult appreciated, please see notes for more detailed information. Summary of Hospital Course include:: 1. Description of specific treatment plan utilized for patients during their course of treatmen. 2. Summarize the time- course for resolution of acute symptoms and/or regressed behaviors. 3. Describe issues identified and worked on during hospitalization. 4. Describe medication utilized. 5. Describe medical problems identified and treated. 6. Reassessment of suicide risk Summary of Hospital Course: Shortly patient is a 73-year old female with reported history of schizoaffective disorder, bipolar type, multiple psychiatric admissions in the past, most recent was here in [facility] in 2017, currently under care or of [facility], patient was brought in by her family for evaluation and stabilization of disorganized thoughts, disorganized behavior, which were progressively worsening for past 2 weeks, inability to function, patient was calling different family members in the middle of the night, accusing family of stealing her phone, patient was calling her daughter in law "devil", screaming, cursing, patient requires further evaluation and stabilization and medications adjustment. Please see admission notes for more detailed information. Medications were confirmed: seroquel 100mg hs filled in September citalopram 10mg po daily filled in September Lorazepam 0.5mg po bid PRN filled in September Metformin 850mg po bid glimepiride 4mg po bid Amlodipine 5mg po daily Patient was seen by medical team, so much detailed information. Patient was stabilized on the following medications: Seroquel extended release 300 mg at the nighttime Celexa 20 mg daily for depression anxiety Flomax 0.4 mg at the nighttime Januvia 100 mg daily Glucophage 850 twice a day Magnesium oxide 400 mg twice a day Cozaar 100 mg daily Amaryl 2 mg at the nighttime and 4 mg in the morning time Norvasc 5 mg daily Patient tolerated medications well, no side effects observed, Jensen 0, no EPS. Family meeting took place today with patient as well as [id number], please see social services technician notes for more detailed information, as per family patient presented very well, patient's family is willing to accept patient back home. Discharge took more than 30 minutes of this handbook writer time. Over the course of this hospitalization pt was attending groups, pt also had medication management, had therapeutic milieu. Overall pt improved significantly, pt's affect became brighter, pt was less psychotic, has realistic future oriented plans, pt was socially appropriate, no behavioral issues, pts insight improved as well and soon pt deemed to be ready for discharge. At the time of the discharge patient pose no imminent danger to self or others, will be following up at [facility] clinic, information about follow up appointment, time and address provided to the pt, (see SW note for more detailed information). It is a patient responsibility to follow up with outpatient clinic, PMD as well as specialists In case patient will need to obtain results of studies pending at discharge, patient was provided with contact information of Psychiatric Inpatient unit [phone] as well as Medical Record Department [phone], as well as [facility] team [phone]. Patient is not using drugs, does not smoke, does not drink alcohol pt was provided with prescriptions (see medication reconciliation form) Pt was educated about safety plan in case of worsening of symptoms or in case of suicidal or homicidal ideation call 911 or go to the nearest ER, also was educated to take meds as prescribed and stay away from drugs, pt verbalized understanding. 11/04/18 16:40 11/04/18 16:40 Lab Results 11/05/18 07:40: TSH 3rd Generation 0.32 L 11/05/18 07:40: Fasting Glucose 100, Triglycerides 85, Cholesterol 143, LDL Cholesterol Direct 73, HDL Cholesterol 40 11/05/18 07:30: POC Glucose (mg/dL) 105 11/04/18 21:24: POC Glucose (mg/dL) 57 L 11/04/18 18:40: Urine Opiates Screen Negative, Urine Methadone Screen Negative, Ur Barbiturates Screen Negative, Ur Phencyclidine Scrn Negative, Ur Amphetamines Screen Negative, U Benzodiazepines Scrn Negative, U Oth Cocaine Metabols Negative, U Cannabinoids Screen Negative 11/04/18 18:40: Urine Color Light yellow, Urine Appearance Sl cloudy, Urine pH 6.0, Ur Specific Midnight 1.010, Urine Protein Negative, Urine Glucose (UA) Negative, Urine Ketones Negative, Urine Blood Negative, Urine Nitrate Negative, Urine Bilirubin Negative, Urine Urobilinogen 0.2, Ur Leukocyte Esterase Moderate H, Urine RBC 0 - 2, Urine WBC 5 - 10 H, Ur Epithelial Cells 1 - 3, Urine Bacteria Trace 11/04/18 16:40: Alcohol, Quantitative < 10 11/04/18 16:40: Salicylates < 1 L, Acetaminophen < 10.0 L 11/04/18 16:40: Sodium 138, Potassium 3.9, Chloride 105, Carbon Dioxide 23, Anion Gap 14, BUN 19, Creatinine 0.7, Est GFR ( Amer) > 60, Est GFR (Non- Af Amer) > 60, Random Glucose 177 H, Calcium 9.3, Total Bilirubin 0.2, AST 15, ALT 7, Alkaline Phosphatase 71, Total Protein 7.2, Albumin 4.2, Globulin 3.0, Albumin/Globulin Ratio 1.4 11/04/18 16:40: WBC 6.2, RBC 3.92, Hgb 10.8 L, Hct 33.3 L, MCV 84.9, MCH 27.6, MCHC 32.4, RDW 14.1, Plt Count 352, MPV 9.2, Neut % (Auto) 61.7, Lymph % (Auto) 27.3, [place] % (Auto) 9.3 H, Eos % (Auto) 1.5, Baso % (Auto) 0.2, Lymph # (Auto) 1.7, [place] # (Auto) 0.6, Eos # (Auto) 0.1, Baso # (Auto) 0.01, Absolute Neuts (auto) 3.81 Vital Signs Temp Pulse Resp BP Pulse Ox 11/05/18 09:44 91 H 135/79 11/05/18 07:00 97.6 F 91 H 17 135/79 11/04/18 22:37 20 11/04/18 20:20 92 H 18 138/72 100 11/04/18 17:25 95 H 18 148/78 96 11/04/18 15:31 98.4 F 102 H 18 153/82 H 95 11/04/18 13:46 98.8 F 104 H 18 138/62 97 - Diagnosis (1) Schizoaffective disorder, depressive type Status: Chronic Priority: High - Final Diagnosis (DSM 5) Condition upon Discharge: IMPROVED Disposition: HOME/ ROUTINE Follow-up Treatment Plan: At the time of the discharge patient pose no imminent danger to self or others, will be following up at [facility], information about follow up appointment, time and address provided to the pt, (see SW note for more detailed information). It is a patient responsibility to follow up with outpatient clinic, PMD as well as specialists In case patient will need to obtain results of studies pending at discharge, patient was provided with contact information of Psychiatric Inpatient unit [phone] as well as Medical Record Department [phone], as well as [facility] team [phone]. Patient is not using drugs, does not smoke, does not drink alcohol pt was provided with prescriptions (see medication reconciliation form) Pt was educated about safety plan in case of worsening of symptoms or in case of suicidal or homicidal ideation call 911 or go to the nearest ER, also was educated to take meds as prescribed and stay away from drugs, pt verbalized understanding. Prescriptions/Medication Reconciliation: amLODIPine [Norvasc] 5 mg PO DAILY #7 tab Citalopram Hydrobromide [Celexa] 20 mg PO DAILY #14 tablet Glimepiride [amaRYL] 2 mg PO ACD #7 tab Glimepiride [amaRYL] 4 mg PO ACB #7 tab Losartan [Cozaar] 100 mg PO DAILY #7 tab Magnesium Oxide [Mag-Ox] 400 mg PO BID #14 tab metFORMIN [glucOPHAGE] 850 mg PO BID #14 tab QUEtiapine [Seroquel XR] 300 mg PO HS #14 ter SITagliptin [Januvia] 100 mg PO DAILY #7 tab Tamsulosin [Flomax] 0.4 mg PO DAILY #7 cap - Smoking Cessation Smoking Cessation Medication prescribed: No Reason for not providing: Patient denied smoking - Antipsychotic Medications Pt discharged on 2 or more routine antipsychotic medications: No
--- NOTE | 2018-11-13 00:44 | PN ---
DATE: 11/12/2018 SUBJECTIVE: The patient is 73 years old, offers no complaint, being discharged home today. No nausea, vomiting, or diarrhea. Eating and tolerating. PHYSICAL EXAMINATION: VITAL SIGNS: The patient is afebrile. Pulse 74, respirations 16, blood pressure 112/69. LUNGS: Bilateral fair air flow. No rhonchi or crackle. HEART: S1, S2 audible. ABDOMEN: Soft and nontender. No rebound. No guarding. NEUROLOGIC: She is awake and alert. Able to communicate. Ambulatory. EXTREMITIES: Bilateral leg, no edema. LABORATORY DATA: Chemistry; her blood sugar this morning was 71, in the afternoon it was 222. ASSESSMENT: 1. History of bipolar disorder. 2. Chronic degenerative disk disease. 3. Non-insulin dependent diabetes. 4. Hypertension. 5. Hyperlipidemia. PLAN: The patient is being discharged home today. She will follow up in my office and we will adjust her medications and we will monitor her blood sugar and hemoglobin A1c as outpatient. Harry Cristina MD
== END 2018-11-12 14:46 | disposition home or self-care (01) | DRG 885 ==
LOC: ED 13:46 → ERH 19:26 → PSYC 20:35
PROVIDERS: ADMIT Psychiatry & Neurology Psychiatry; ATTEND Psychiatry & Neurology Psychiatry
DX: F25.1 Schizoaffective disorder, depressive type (principal); N39.0 Urinary tract infection, site not specified; F31.9 Bipolar disorder, unspecified; F41.8 Other specified anxiety disorders; G89.29 Other chronic pain; E78.5 Hyperlipidemia, unspecified; I10 Essential (primary) hypertension; E11.9 Type 2 diabetes mellitus without complications; F03.90 Unspecified dementia, unspecified severity, without behavioral disturbance, psychotic disturbance, mood disturbance, and anxiety; Z79.84 Long term (current) use of oral hypoglycemic drugs; Z79.899 Other long term (current) drug therapy; Z87.440 Personal history of urinary (tract) infections; Z90.710 Acquired absence of both cervix and uterus; M51.37 Other intervertebral disc degeneration, lumbosacral region